=== PATIENT | male | born 1955 | race African-American/Black ===

== ENCOUNTER 2021-11-18 00:52 | Inpatient (IN) | payer OTHER, MEDICAID ==
[2021-11-18] VITALS (20 sets, daily range): BP systolic 150–230; BP diastolic 68–118
[~2021-11-18] VITALS: Ht 180.3 cm; Wt 89.0 kg
[2021-11-18 01:13] LABS: BASO # 0.1 x10^3/uL (0.0-0.2); BASO % 1 % (0-3); EOS # 0.1 x10^3/uL (0.0-0.7); EOS % 1 % (0-3); HEMATOCRIT 32.6 % (39.0-53.0); HEMOGLOBIN 10.5 g/dL (13.0-17.5); LYMPH # 1.8 x10^3/uL (1.0-4.8); LYMPH % 13 % (24-48); MEAN CORPUSCULAR HEMOGLOBIN 26 pg (25-35); MEAN CORPUSCULAR HGB CONC 32 g/dL (31-37); MEAN CORPUSCULAR VOLUME 81 fL (79-100); MONO # 0.9 x10^3/uL (0.0-1.1); MONO % 7 % (0-9); NEUT # 10.4 x10^3/uL (1.8-7.7); NEUT % 78 % (31-73); PLATELET COUNT 307 x10^3/uL (140-400); RED CELL DISTRIBUTION WIDTH 19.3 % (11.5-14.5); WHITE BLOOD COUNT 13.2 x10^3/uL (4.0-11.0)
[2021-11-18 01:22] LABS: PROTHROMBIN TIME PATIENT 13.2 SEC (11.7-14.0)
[2021-11-18 01:24] LABS: CALCIUM 8.4 mg/dL (8.5-10.1); CREATININE 6.3 mg/dL (0.7-1.3); GFR 10.8; POTASSIUM 4.5 mmol/L (3.5-5.1)
[2021-11-18 01:30] LABS: ALBUMIN 3.5 g/dL (3.4-5.0); ALBUMIN/GLOBULIN RATIO 0.8 (1.0-1.7); TOTAL BILIRUBIN 0.3 mg/dL (0.2-1.0); TOTAL PROTEIN 8.1 g/dL (6.4-8.2)
[2021-11-18] MEDS ORDERED: NITROGLYCERIN PREMIX 250 ML IV ONE (01:30)
--- NOTE | 2021-11-18 01:30 | RAD ---
AP chest x-ray HISTORY: Shortness of breath. FINDINGS: Right jugular dual-lumen dialysis catheter tip radiographic region SVC. Postoperative ruiz es of coronary bypass. Mild cardiomegaly. No pneumothorax. No pleural effusions. Pulmonary vascular c ongestion. Extensive pulmonary interstitial infiltrates with some left greater than right perihilar b atwing type opacities typical pulmonary edema. IMPRESSION: Cardiomegaly, pulmonary vascular congestion and pulmonary edema likely representing conge stive heart failure, versus volume overload. Right jugular dialysis catheter. No pneumothorax. Electronically signed by: Juni Baeza MD (11/18/2021 1:28 AM) [facility]
[2021-11-18 02:02] LABS: BASE EXCESS ABG -1 mmol/L (-3-3); HCO3 ABG 23 mmol/L (21-28); PCO2 ABG 39 mmHg (35-46); PO2 ABG 184 mmHg (65-108); SAT O2 ABG 100 % (92-99)
[2021-11-18 02:17] LABS: FIO2 ABG 60
[2021-11-18] MEDS ORDERED: FUROSEMIDE 40 MG/4 ML VIAL. IVP ONE (02:30)
--- NOTE | 2021-11-18 03:08 | PHYS DOC ---
Past Medical History Additional Past Medical Histor: DRUG ABUSE Past Surgical History: Other Additional Past Surgical Histo: RIGHT DIALYSIS PORT CHEST Smoking Status: Current Every Day Smoker Alcohol Use: None Adult General Chief Complaint Chief Complaint: SHORTNESS OF BREATH HPI HPI The patient is a 66-year-old male with with a history of hypertension, hyperlipidemia, coronary artery disease status post CABG and end-stage renal disease on hemodialysis MWF and compliant (last dialysis yesterday). His additional history is unclear as he has not been inpatient at this facility in the past. Mr. Eng presents for evaluation of sudden onset dyspnea at rest shortly after smoking cocaine prior to arrival. EMS were dispatched to his location and found him laboring to breathe with an oxygen saturation in the low 80s. They placed him on several liters by nasal cannula and transported him, placing Nitropaste as well. Patient's blood pressure on arrival to the emergency department is 270/150. Crackles are heard on auscultation and chest x-ray shows pulmonary edema. Patient denies any chest pain; reports his only symptom is sudden onset shortness of breath. Impression is acute pulmonary edema/hypertensive emergency. Patient immediately placed on BiPAP and high-dose nitroglycerin drip started. With these interventions, blood pressure has come down and patient's dyspnea has resolved. Dose Lasix given. Review of Systems Review of Systems A 12 point review of systems was completed and was negative except where noted in HPI above. Current Medications Current Medications Current Medications Medications (Trade) Dose Ordered Sig/Yossi Start Time Stop Time Status Last Admin Dose Admin Furosemide (Lasix) 40 mg 1X ONCE 11/18/21 02:30 11/18/21 02:31 DC Nitroglycerin/ Dextrose 250 ml @ 1.5 mls/hr 1X ONCE 11/18/21 01:30 11/25/21 00:09 11/18/21 01:20 30 MLS/HR Allergies Allergies Allergies Coded Allergies Type Severity Reaction Last Updated Verified No Known Drug Allergies 11/18/21 No Physical Exam Physical Exam Older black male appearing acutely ill and working to breathe. Head is normocephalic and atraumatic. Neck is supple and nontender. Oropharynx is mois t. Lungs with diminished breath sounds and coarse crackles to all paul. No wheezes or other adventitious sounds heard. Accessory muscle use is noted. There is a normal S1 and S2 without rubs or gallops and capillary refill is appropriate, less than 2 seconds globally. There is a tachycardic, regular rhythm. Abdomen soft, nontender and nondistended without pulsatile mass. Skin is warm and dry without cyanosis, clubbing or edema. Psychiatrically, the patient demonstrates appropriate mood and affect and is alert. Evaluation of the extremities reveals BUEs and BLEs neurovascularly intact distally with strength 5-5, sensation intact light touch in all nerve distributions, radial, DP and PT pulses 2+ and equal bilaterally, capillary refill less than 2 seconds, hands and feet warm and well-perfused. 2+ dependent pitting peripheral edema to the bilateral lower extremities below the level of the mid shins, symmetric. No calf tenderness or swelling bilaterally. Kira's test is negative bilaterally. Current Patient Data Vital Signs Vital Signs Date Time Temp Pulse Resp B/P (MAP) Pulse Ox O2 Delivery O2 Flow Rate FiO2 11/18/21 02:35 88 20 178/99 (125) 100 BiPAP/CPAP 11/18/21 00:55 98.6 15.0 98.6 Lab Values Laboratory Tests Test 11/18/21 01:00 11/18/21 01:58 White Blood Count 13.2 x10^3/uL (4.0-11.0) H Red Blood Count 4.00 x10^6/uL (4.30-5.70) L Hemoglobin 10.5 g/dL (13.0-17.5) L Hematocrit 32.6 % (39.0-53.0) L Mean Corpuscular Volume 81 fL (79-100) Mean Corpuscular Hemoglobin 26 pg (25-35) Mean Corpuscular Hemoglobin Concent 32 g/dL (31-37) Red Cell Distribution Width 19.3 % (11.5-14.5) H Platelet Count 307 x10^3/uL (140-400) Neutrophils (%) (Auto) 78 % (31-73) H Lymphocytes (%) (Auto) 13 % (24-48) L Monocytes (%) (Auto) 7 % (0-9) Eosinophils (%) (Auto) 1 % (0-3) Basophils (%) (Auto) 1 % (0-3) Neutrophils # (Auto) 10.4 x10^3/uL (1.8-7.7) H Lymphocytes # (Auto) 1.8 x10^3/uL (1.0-4.8) Monocytes # (Auto) 0.9 x10^3/uL (0.0-1.1) Eosinophils # (Auto) 0.1 x10^3/uL (0.0-0.7) Basophils # (Auto) 0.1 x10^3/uL (0.0-0.2) Prothrombin Time 13.2 SEC (11.7-14.0) Prothrombin Time INR 1.0 (0.8-1.1) Activated Partial Thromboplast Time 28 SEC (24-38) Sodium Level 137 mmol/L (136-145) Potassium Level 4.5 mmol/L (3.5-5.1) Chloride Level 97 mmol/L (98-107) L Carbon Dioxide Level 26 mmol/L (21-32) Anion Gap 14 (6-14) Blood Urea Nitrogen 31 mg/dL (8-26) H Creatinine 6.3 mg/dL (0.7-1.3) H Estimated GFR (Cockcroft-Gault) 10.8 BUN/Creatinine Ratio 5 (6-20) L Glucose Level 151 mg/dL (70-99) H Lactic Acid Level 1.4 mmol/L (0.4-2.0) Calcium Level 8.4 mg/dL (8.5-10.1) L Total Bilirubin 0.3 mg/dL (0.2-1.0) Aspartate Amino Transferase (AST) 34 U/L (15-37) Alanine Aminotransferase (ALT) 33 U/L (16-63) Alkaline Phosphatase 86 U/L (46-116) Troponin I High Sensitivity 107 ng/L (4-75) H KT-Tps-J-Type Natriuretic Peptide 01515 pg/mL (0-124) H Total Protein 8.1 g/dL (6.4-8.2) Albumin 3.5 g/dL (3.4-5.0) Albumin/Globulin Ratio 0.8 (1.0-1.7) L Ethyl Alcohol Level < 10 mg/dL (0-10) O2 Saturation 100 % (92-99) H Arterial Blood pH 7.40 (7.35-7.45) Arterial Blood pCO2 at Patient Temp 39 mmHg (35-46) Arterial Blood pO2 at Patient Temp 184 mmHg (65-108) H Arterial Blood HCO3 23 mmol/L (21-28) Arterial Blood Base Excess -1 mmol/L (-3-3) FiO2 60 Laboratory Tests 11/18/21 01:00 Laboratory Tests 11/18/21 01:00 EKG EKG Sinus rhythm, rate 121, no acute ST elevation, ST depressions noted in high lateral, inferior and lateral leads, DC 134, QRS 102, QTc 457, EP interpretation. Repeat EKG after stabilizing measures as documented in HPI above with heart rate 96, improved ST depressions and no ST elevation noted. Radiology/Procedures Radiology/Procedures AP chest x-ray HISTORY: Shortness of breath. FINDINGS: Right jugular dual-lumen dialysis catheter tip radiographic region SVC. Postoperative changes of coronary bypass. Mild cardiomegaly. No pneumothorax. No pleural effusions. Pulmonary vascular congestion. Extensive pulmonary interstitial infiltrates with some left greater than right perihilar batwing type opacities typical pulmonary edema. IMPRESSION: Cardiomegaly, pulmonary vascular congestion and pulmonary edema likely representing congestive heart failure, versus volume overload. Right jugular dialysis catheter. No pneumothorax. Electronically signed by: Nisa Baeza MD (11/18/2021 1:28 AM) [facility] DICTATED and SIGNED BY: NISA BAEZA MD DATE: 11/18/21125 Course & Med Decision Making Course & Med Decision Making Patient stabilized as per narrative above. Resting comfortably in no acute distress on BiPAP, reports breathing is much, much better than upon arrival. No longer working to breathe; respiratory effort is normal. Blood pressure dramatically better on nitroglycerin drip. Transferring to the ICU at this time; cardiology and nephrology consults placed. Graciously accepted for admission by Dr. Umanzor. Critical care time today was 95 minutes independent of any separately billed procedure time. Dragon Disclaimer Dragon Disclaimer This electronic medical record was generated, in whole or in part, using a voice recognition dictation system. Departure Departure Impression: Primary Impression: Flash pulmonary edema Additional Impressions: Hypertensive emergency Acute exacerbation of congestive heart failure Cocaine abuse Acute hypoxemic respiratory failure Disposition: ADMITTED INPATIENT Condition: GUARDED Referrals: SAGAR UMANZOR MD (PCP) Problem Qualifiers Additional Impressions: Acute exacerbation of congestive heart failure Heart failure type: unspecified Qualified Codes: I50.9 - Heart failure, unspecified ABBEY BEATTY MD Nov 18, 2021 03:08
[2021-11-18] MEDS ORDERED: ONDANSETRON PF 4 MG/2 ML VIAL. IVP PRN (03:15)
[2021-11-18] MEDS ORDERED: ACETAMINOPHEN 500 MG TABLET PO ONE (03:30)
[2021-11-18] MEDS ORDERED: CONTRAST GIVEN. MC PRN (03:45)
[2021-11-18] MEDS ORDERED: IOHEXOL 350 MG/ML 100 ML VIAL. IV ONE (04:00)
--- NOTE | 2021-11-18 04:27 | RAD ---
CT angiography chest, abdomen and pelvis with contrast PQRS statement: CT scans at this facility use dose reduction including either automated exposure cont rol, iterative reconstructions, and /or weight based radiation dosing via mA and kV modification when appropriate to reduce radiation dose to as low as reasonably achievable. Contrast: 90 mL Omnipaque 350 intravenous contrast with 3-D MIP reconstructions of the arteries acqui red. HISTORY: Chest wall pain. Chest findings: Thoracic disc disease with loss of disc protrusions contribute to spinal canal stenos es. Coronary calcified plaque. Postoperative changes of coronary artery bypass. Calcifications of the aortic valve. Ectasia ascending thoracic aorta 3.9 cm. Right jugular large-bore catheter tip SVC. Li mited contrast densities in the pulmonary arteries not allowing assessment for emboli. No thoracic ao rtic aneurysm or dissection. Heart size is normal. Esophagus is unremarkable. Borderline enlarged med iastinal lymph nodes largest at the lower paratracheal station measuring 1 cm. Small bilateral depend ent pleural effusions. Mild chest wall soft tissue edema. Bilateral gynecomastia. Smooth paraseptal i nterstitial thickening and heterogeneous groundglass opacities as well as centrilobular groundglass d ensities and nodular densities most likely pulmonary edema superimposed pneumonia not excluded. Abdomen findings: Lower lumbar disc disease. Replaced hepatic artery from the celiac artery and anato vickie variant. Plaquing of the mesenteric arteries and abdominal aorta without significant stenosis. Th ere is a shallow ulceration of the anterior wall of the infrarenal aorta image 123. No aneurysm or di ssection causing a stenosis, thrombus or occlusion of the aorta or abdominal arteries. Maximum diamet er of the aorta is 2 cm. Right kidney is absent. Left kidney, adrenals, pancreas, spleen, liver and g allbladder are unremarkable. Small volume of free fluid in Shankar's pouch. No obstruction or inflam mation GI tract. Diffuse flank soft tissue edema. Pelvis findings: Tortuosity and calcified iliac arteries, no aneurysm, dissection, significant stenos is or occlusion. Small volume of pelvic fluid. Bladder and prostate, rectum and bones are unremarkabl e. IMPRESSION: 1. Plaquing without aneurysm or dissection of the thoracic aorta, abdominal aorta, abdominal arteries or iliac arteries. 2. Pulmonary edema and small pleural effusions. There are scattered centrilobular groundglass nodules and nodular opacities most likely reflective of pulmonary edema although a superimposed disseminated infection is also a possibility. Follow-up CT chest imaging in 3 months is advised to document that this resolves to exclude an underlying neoplastic nodule. 3. There is also a small volume of pelvic fluid and diffuse abdominal and pelvic soft tissue edema wh ich may indicate anasarca. 4. Thoracic and lumbar disc disease as described above. 5. Ectasia ascending thoracic aorta diameter 3.9 cm. Electronically signed by: Juni Baeza MD (11/18/2021 4:24 AM) [facility]
--- NOTE | 2021-11-18 06:12 | EKG ---
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
--- NOTE | 2021-11-18 06:12 | EKG ---
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
[2021-11-18] MEDS ORDERED: NITROGLYCERIN PREMIX 250 ML IV PRN (06:15)
[2021-11-18] MEDS: fentaNYL PF VIAL 100 MCG/2 ML VIAL IV PRN ×6 (07:40→21:23)
[2021-11-18 07:55] LABS: AMPHETAMINE/METHAMPHETAMINE NEG (NEG); BARBITURATES NEG (NEG); BENZODIAZEPINES NEG (NEG); CANNABINOIDS NEG (NEG); COCAINE POS (NEG); METHADONE NEG (NEG); OPIATES NEG (NEG); PHENCYCLIDINE NEG (NEG)
--- NOTE | 2021-11-18 08:48 | PDOC ---
PULMONARY PROGRESS NOTES DATE: 11/18/21 TIME: 08:47 Vitals Vital Signs Date Time Temp Pulse Resp B/P (MAP) Pulse Ox O2 Delivery O2 Flow Rate FiO2 11/18/21 08:00 98.0 80 50 187/101 (129) 99 Nasal Cannula 4.0 98.0 Labs Laboratory Tests Test 11/18/21 01:00 11/18/21 01:58 11/18/21 07:30 White Blood Count 13.2 x10^3/uL (4.0-11.0) Red Blood Count 4.00 x10^6/uL (4.30-5.70) Hemoglobin 10.5 g/dL (13.0-17.5) Hematocrit 32.6 % (39.0-53.0) Mean Corpuscular Volume 81 fL (79-100) Mean Corpuscular Hemoglobin 26 pg (25-35) Mean Corpuscular Hemoglobin Concent 32 g/dL (31-37) Red Cell Distribution Width 19.3 % (11.5-14.5) Platelet Count 307 x10^3/uL (140-400) Neutrophils (%) (Auto) 78 % (31-73) Lymphocytes (%) (Auto) 13 % (24-48) Monocytes (%) (Auto) 7 % (0-9) Eosinophils (%) (Auto) 1 % (0-3) Basophils (%) (Auto) 1 % (0-3) Neutrophils # (Auto) 10.4 x10^3/uL (1.8-7.7) Lymphocytes # (Auto) 1.8 x10^3/uL (1.0-4.8) Monocytes # (Auto) 0.9 x10^3/uL (0.0-1.1) Eosinophils # (Auto) 0.1 x10^3/uL (0.0-0.7) Basophils # (Auto) 0.1 x10^3/uL (0.0-0.2) Prothrombin Time 13.2 SEC (11.7-14.0) Prothromb Time International Ratio 1.0 (0.8-1.1) Activated Partial Thromboplast Time 28 SEC (24-38) Sodium Level 137 mmol/L (136-145) Potassium Level 4.5 mmol/L (3.5-5.1) Chloride Level 97 mmol/L (98-107) Carbon Dioxide Level 26 mmol/L (21-32) Anion Gap 14 (6-14) Blood Urea Nitrogen 31 mg/dL (8-26) Creatinine 6.3 mg/dL (0.7-1.3) Estimated GFR (Cockcroft-Gault) 10.8 BUN/Creatinine Ratio 5 (6-20) Glucose Level 151 mg/dL (70-99) Lactic Acid Level 1.4 mmol/L (0.4-2.0) Calcium Level 8.4 mg/dL (8.5-10.1) Total Bilirubin 0.3 mg/dL (0.2-1.0) Aspartate Amino Transf (AST/SGOT) 34 U/L (15-37) Alanine Aminotransferase (ALT/SGPT) 33 U/L (16-63) Alkaline Phosphatase 86 U/L (46-116) Troponin I High Sensitivity 107 ng/L (4-75) UZ-Pwn-Q-Type Natriuretic Peptide 76253 pg/mL (0-124) Total Protein 8.1 g/dL (6.4-8.2) Albumin 3.5 g/dL (3.4-5.0) Albumin/Globulin Ratio 0.8 (1.0-1.7) Ethyl Alcohol Level < 10 mg/dL (0-10) O2 Saturation 100 % (92-99) Arterial Blood pH 7.40 (7.35-7.45) Arterial Blood pCO2 at Patient Temp 39 mmHg (35-46) Arterial Blood pO2 at Patient Temp 184 mmHg (65-108) Arterial Blood HCO3 23 mmol/L (21-28) Arterial Blood Base Excess -1 mmol/L (-3-3) FiO2 60 Urine Opiates Screen Neg (NEG) Urine Methadone Screen Neg (NEG) Urine Barbiturates Neg (NEG) Urine Phencyclidine Screen Neg (NEG) Urine Amphetamine/Methamphetamine Neg (NEG) Urine Benzodiazepines Screen Neg (NEG) Urine Cocaine Screen Pos (NEG) Urine Cannabinoids Screen Neg (NEG) Urine Ethyl Alcohol Neg (NEG) Laboratory Tests Test 11/18/21 01:00 11/18/21 01:58 11/18/21 07:30 White Blood Count 13.2 x10^3/uL (4.0-11.0) Red Blood Count 4.00 x10^6/uL (4.30-5.70) Hemoglobin 10.5 g/dL (13.0-17.5) Hematocrit 32.6 % (39.0-53.0) Mean Corpuscular Volume 81 fL (79-100) Mean Corpuscular Hemoglobin 26 pg (25-35) Mean Corpuscular Hemoglobin Concent 32 g/dL (31-37) Red Cell Distribution Width 19.3 % (11.5-14.5) Platelet Count 307 x10^3/uL (140-400) Neutrophils (%) (Auto) 78 % (31-73) Lymphocytes (%) (Auto) 13 % (24-48) Monocytes (%) (Auto) 7 % (0-9) Eosinophils (%) (Auto) 1 % (0-3) Basophils (%) (Auto) 1 % (0-3) Neutrophils # (Auto) 10.4 x10^3/uL (1.8-7.7) Lymphocytes # (Auto) 1.8 x10^3/uL (1.0-4.8) Monocytes # (Auto) 0.9 x10^3/uL (0.0-1.1) Eosinophils # (Auto) 0.1 x10^3/uL (0.0-0.7) Basophils # (Auto) 0.1 x10^3/uL (0.0-0.2) Prothrombin Time 13.2 SEC (11.7-14.0) Prothromb Time International Ratio 1.0 (0.8-1.1) Activated Partial Thromboplast Time 28 SEC (24-38) Sodium Level 137 mmol/L (136-145) Potassium Level 4.5 mmol/L (3.5-5.1) Chloride Level 97 mmol/L (98-107) Carbon Dioxide Level 26 mmol/L (21-32) Anion Gap 14 (6-14) Blood Urea Nitrogen 31 mg/dL (8-26) Creatinine 6.3 mg/dL (0.7-1.3) Estimated GFR (Cockcroft-Gault) 10.8 BUN/Creatinine Ratio 5 (6-20) Glucose Level 151 mg/dL (70-99) Lactic Acid Level 1.4 mmol/L (0.4-2.0) Calcium Level 8.4 mg/dL (8.5-10.1) Total Bilirubin 0.3 mg/dL (0.2-1.0) Aspartate Amino Transf (AST/SGOT) 34 U/L (15-37) Alanine Aminotransferase (ALT/SGPT) 33 U/L (16-63) Alkaline Phosphatase 86 U/L (46-116) Troponin I High Sensitivity 107 ng/L (4-75) OX-Lko-S-Type Natriuretic Peptide 06039 pg/mL (0-124) Total Protein 8.1 g/dL (6.4-8.2) Albumin 3.5 g/dL (3.4-5.0) Albumin/Globulin Ratio 0.8 (1.0-1.7) Ethyl Alcohol Level < 10 mg/dL (0-10) O2 Saturation 100 % (92-99) Arterial Blood pH 7.40 (7.35-7.45) Arterial Blood pCO2 at Patient Temp 39 mmHg (35-46) Arterial Blood pO2 at Patient Temp 184 mmHg (65-108) Arterial Blood HCO3 23 mmol/L (21-28) Arterial Blood Base Excess -1 mmol/L (-3-3) FiO2 60 Urine Opiates Screen Neg (NEG) Urine Methadone Screen Neg (NEG) Urine Barbiturates Neg (NEG) Urine Phencyclidine Screen Neg (NEG) Urine Amphetamine/Methamphetamine Neg (NEG) Urine Benzodiazepines Screen Neg (NEG) Urine Cocaine Screen Pos (NEG) Urine Cannabinoids Screen Neg (NEG) Urine Ethyl Alcohol Neg (NEG) Impression . Full consult dictated Acute hypoxemic respiratory failure secondary to acute pulmonary edema from uncontrolled hypertension related to crack cocaine use DEAN CASTRO MD Nov 18, 2021 08:48
--- NOTE | 2021-11-18 09:08 | PDOC2 ---
CONSULT Date of Consult Date of Consult DATE: 11/18/21 TIME: 09:03 Reason for Consult Reason for Consult: ESRD Identification/Chief Complaint Chief Complaint Shortness of Breath POA Source Source: Chart review History of Present Illness Reason for Visit: Patient is a 66-year-old AA male with with a history of hypertension,coronary artery disease status post CABG and end-stage renal disease on hemodialysis MWF . He presents to the ED for evaluation of sudden onset dyspnea at rest shortly after smoking cocaine prior to arrival. EMS found him laboring to breathe with an oxygen saturation in the low 80s. They placed him on several liters by nasal cannula , ,Nitropaste and transported him as well. His blood pressure on arrival to the emergency department is 270/150. Evaluated by ER physician- Crackles on auscultation.. He denies any chest pain;No N/V/D. No abdominal pain . No F/C . . No palpitations, dizziness.Denies missing any treatment . Reports compliance with meds Recent right nephrectomy about 2 weeks ago Chest x-ray reported pulmonary edema . He was placed on BiPAP and high-dose nitroglycerin drip and a dose of IV Lasix in the ER With these interventions, blood pressure came down and dyspnea improved . He is in the ICU, states feeling better . Current Problem List Problem List Problems Medical Problems: (1) Acute exacerbation of congestive heart failure Status: Acute (2) Acute hypoxemic respiratory failure Status: Acute (3) Cocaine abuse Status: Acute (4) Flash pulmonary edema Status: Acute (5) Hypertensive emergency Status: Acute Current Medications Current Medications Current Medications Nitroglycerin/ Dextrose 250 ml @ 1.5 mls/hr 1X ONCE IV Last administered on 11/18/21at 01:20; Start 11/18/21 at 01:30; Stop 11/25/21 at 00:09 Furosemide (Lasix) 40 mg 1X ONCE IVP Last administered on 11/18/21at 03:26; Start 11/18/21 at 02:30; Stop 11/18/21 at 02:31; Status DC Ondansetron HCl (Zofran) 4 mg PRN Q8HRS PRN IVP NAUSEA/VOMITING 1ST CHOICE; Start 11/18/21 at 03:15; Stop 11/19/21 at 03:14 Acetaminophen (Tylenol) 1,000 mg 1X ONCE PO ; Start 11/18/21 at 03:30; Stop 11/18/21 at 03:31; Status DC Iohexol (Omnipaque 350 Mg/ml) 100 ml 1X ONCE IV Last administered on 11/18/21at 03:54; Start 11/18/21 at 04:00; Stop 11/18/21 at 04:01; Status DC Info (CONTRAST GIVEN -- Rx MONITORING) 1 each PRN DAILY PRN MC SEE COMMENTS; Start 11/18/21 at 03:45; Stop 11/20/21 at 03:44 Nitroglycerin/ Dextrose 250 ml @ 1.5 mls/hr CONT PRN IV SEE I/O RECORD Last administered on 11/18/21at 06:14; Start 11/18/21 at 06:15 Fentanyl Citrate (Fentanyl 2ml Vial) 50 mcg PRN Q2HRS PRN IV PAIN Last administered on 11/18/21at 07:40; Start 11/18/21 at 07:00 Allergies Allergies: Coded Allergies: No Known Drug Allergies (Unverified , 11/18/21) ROS Review of System As per HPI, rest of the ROS is negative Physical Exam Physical Exam General: No acute distress, sitting in bed, On o2 by [place] HEENT: Atraumatic, Mucous membr. moist/pink Neck Supple Lungs diminished bases, Non labored Heart: Regular rate Normal S1, Normal S2, 2/6 systolic murmur Abdomen: Soft, No tenderness. Obese Extremities: No cyanosis, No edema Skin: No breakdown, No Rash Neuro: Grossly Normal Psych/Mental Status: Cooperative No Petit, o CVA or SP tenderness Vital Signs Vital Signs Date Time Temp Pulse Resp B/P (MAP) Pulse Ox O2 Delivery O2 Flow Rate FiO2 11/18/21 08:00 98.0 80 50 187/101 (129) 99 Nasal Cannula 4.0 98.0 Assessment & Plan ESRD MWF at [facility] , No missed treatments . Dialysis today , discussed treatment plan with [facility] Acute on chronic CHF with possible diastolic dysfunction: possibly induced by uncontrolled HTN with associated cocaine Acute Resp Failure 2/2 AC on Chr CHF ; Cxr and CT cw Pulmonary edema and small pleural effusions. Off Bipap , On O2 by nc Abnormal CT Chest- . Pulmonary edema and small pleural effusions. There are scattered centrilobular groundglass nodules and nodular opacities most likely reflective of pulmonary edema although a superimposed disseminated infection is also a possibility. Follow-up CT chest imaging in 3 months is advised to document that this resolves to exclude an underlying neoplastic nodule. Malignant HTN-Was started on NG gtt ; Cardiology managing . NSTEMI: Suspect demand mediated type 2 S/P Right nephrectomy: about 2 weeks ago due to Dx of Malignancy on Biopsy of the Rt Kidney mass DM2 Cocaine use: used it last night Tobacco abuse Labs Labs Laboratory Tests Test 11/18/21 01:00 11/18/21 01:58 11/18/21 07:30 White Blood Count 13.2 x10^3/uL (4.0-11.0) Red Blood Count 4.00 x10^6/uL (4.30-5.70) Hemoglobin 10.5 g/dL (13.0-17.5) Hematocrit 32.6 % (39.0-53.0) Mean Corpuscular Volume 81 fL (79-100) Mean Corpuscular Hemoglobin 26 pg (25-35) Mean Corpuscular Hemoglobin Concent 32 g/dL (31-37) Red Cell Distribution Width 19.3 % (11.5-14.5) Platelet Count 307 x10^3/uL (140-400) Neutrophils (%) (Auto) 78 % (31-73) Lymphocytes (%) (Auto) 13 % (24-48) Monocytes (%) (Auto) 7 % (0-9) Eosinophils (%) (Auto) 1 % (0-3) Basophils (%) (Auto) 1 % (0-3) Neutrophils # (Auto) 10.4 x10^3/uL (1.8-7.7) Lymphocytes # (Auto) 1.8 x10^3/uL (1.0-4.8) Monocytes # (Auto) 0.9 x10^3/uL (0.0-1.1) Eosinophils # (Auto) 0.1 x10^3/uL (0.0-0.7) Basophils # (Auto) 0.1 x10^3/uL (0.0-0.2) Prothrombin Time 13.2 SEC (11.7-14.0) Prothromb Time International Ratio 1.0 (0.8-1.1) Activated Partial Thromboplast Time 28 SEC (24-38) Sodium Level 137 mmol/L (136-145) Potassium Level 4.5 mmol/L (3.5-5.1) Chloride Level 97 mmol/L (98-107) Carbon Dioxide Level 26 mmol/L (21-32) Anion Gap 14 (6-14) Blood Urea Nitrogen 31 mg/dL (8-26) Creatinine 6.3 mg/dL (0.7-1.3) Estimated GFR (Cockcroft-Gault) 10.8 BUN/Creatinine Ratio 5 (6-20) Glucose Level 151 mg/dL (70-99) Lactic Acid Level 1.4 mmol/L (0.4-2.0) Calcium Level 8.4 mg/dL (8.5-10.1) Total Bilirubin 0.3 mg/dL (0.2-1.0) Aspartate Amino Transf (AST/SGOT) 34 U/L (15-37) Alanine Aminotransferase (ALT/SGPT) 33 U/L (16-63) Alkaline Phosphatase 86 U/L (46-116) Troponin I High Sensitivity 107 ng/L (4-75) UR-Teg-H-Type Natriuretic Peptide 46228 pg/mL (0-124) Total Protein 8.1 g/dL (6.4-8.2) Albumin 3.5 g/dL (3.4-5.0) Albumin/Globulin Ratio 0.8 (1.0-1.7) Ethyl Alcohol Level < 10 mg/dL (0-10) O2 Saturation 100 % (92-99) Arterial Blood pH 7.40 (7.35-7.45) Arterial Blood pCO2 at Patient Temp 39 mmHg (35-46) Arterial Blood pO2 at Patient Temp 184 mmHg (65-108) Arterial Blood HCO3 23 mmol/L (21-28) Arterial Blood Base Excess -1 mmol/L (-3-3) FiO2 60 Urine Opiates Screen Neg (NEG) Urine Methadone Screen Neg (NEG) Urine Barbiturates Neg (NEG) Urine Phencyclidine Screen Neg (NEG) Urine Amphetamine/Methamphetamine Neg (NEG) Urine Benzodiazepines Screen Neg (NEG) Urine Cocaine Screen Pos (NEG) Urine Cannabinoids Screen Neg (NEG) Urine Ethyl Alcohol Neg (NEG) Laboratory Tests Test 11/18/21 01:00 11/18/21 01:58 11/18/21 07:30 White Blood Count 13.2 x10^3/uL (4.0-11.0) Red Blood Count 4.00 x10^6/uL (4.30-5.70) Hemoglobin 10.5 g/dL (13.0-17.5) Hematocrit 32.6 % (39.0-53.0) Mean Corpuscular Volume 81 fL (79-100) Mean Corpuscular Hemoglobin 26 pg (25-35) Mean Corpuscular Hemoglobin Concent 32 g/dL (31-37) Red Cell Distribution Width 19.3 % (11.5-14.5) Platelet Count 307 x10^3/uL (140-400) Neutrophils (%) (Auto) 78 % (31-73) Lymphocytes (%) (Auto) 13 % (24-48) Monocytes (%) (Auto) 7 % (0-9) Eosinophils (%) (Auto) 1 % (0-3) Basophils (%) (Auto) 1 % (0-3) Neutrophils # (Auto) 10.4 x10^3/uL (1.8-7.7) Lymphocytes # (Auto) 1.8 x10^3/uL (1.0-4.8) Monocytes # (Auto) 0.9 x10^3/uL (0.0-1.1) Eosinophils # (Auto) 0.1 x10^3/uL (0.0-0.7) Basophils # (Auto) 0.1 x10^3/uL (0.0-0.2) Prothrombin Time 13.2 SEC (11.7-14.0) Prothromb Time International Ratio 1.0 (0.8-1.1) Activated Partial Thromboplast Time 28 SEC (24-38) Sodium Level 137 mmol/L (136-145) Potassium Level 4.5 mmol/L (3.5-5.1) Chloride Level 97 mmol/L (98-107) Carbon Dioxide Level 26 mmol/L (21-32) Anion Gap 14 (6-14) Blood Urea Nitrogen 31 mg/dL (8-26) Creatinine 6.3 mg/dL (0.7-1.3) Estimated GFR (Cockcroft-Gault) 10.8 BUN/Creatinine Ratio 5 (6-20) Glucose Level 151 mg/dL (70-99) Lactic Acid Level 1.4 mmol/L (0.4-2.0) Calcium Level 8.4 mg/dL (8.5-10.1) Total Bilirubin 0.3 mg/dL (0.2-1.0) Aspartate Amino Transf (AST/SGOT) 34 U/L (15-37) Alanine Aminotransferase (ALT/SGPT) 33 U/L (16-63) Alkaline Phosphatase 86 U/L (46-116) Troponin I High Sensitivity 107 ng/L (4-75) LF-Ely-G-Type Natriuretic Peptide 31973 pg/mL (0-124) Total Protein 8.1 g/dL (6.4-8.2) Albumin 3.5 g/dL (3.4-5.0) Albumin/Globulin Ratio 0.8 (1.0-1.7) Ethyl Alcohol Level < 10 mg/dL (0-10) O2 Saturation 100 % (92-99) Arterial Blood pH 7.40 (7.35-7.45) Arterial Blood pCO2 at Patient Temp 39 mmHg (35-46) Arterial Blood pO2 at Patient Temp 184 mmHg (65-108) Arterial Blood HCO3 23 mmol/L (21-28) Arterial Blood Base Excess -1 mmol/L (-3-3) FiO2 60 Urine Opiates Screen Neg (NEG) Urine Methadone Screen Neg (NEG) Urine Barbiturates Neg (NEG) Urine Phencyclidine Screen Neg (NEG) Urine Amphetamine/Methamphetamine Neg (NEG) Urine Benzodiazepines Screen Neg (NEG) Urine Cocaine Screen Pos (NEG) Urine Cannabinoids Screen Neg (NEG) Urine Ethyl Alcohol Neg (NEG) Review All relevant outside records, renal labs, imaging studies, telemetry/EKG's were reviewed. Images Images AP chest x-ray HISTORY: Shortness of breath. FINDINGS: Right jugular dual-lumen dialysis catheter tip radiographic region SVC. Postoperative changes of coronary bypass. Mild cardiomegaly. No pneumothorax. No pleural effusions. Pulmonary vascular congestion. Extensive pulmonary interstitial infiltrates with some left greater than right perihilar batwing type opacities typical pulmonary edema. IMPRESSION: Cardiomegaly, pulmonary vascular congestion and pulmonary edema likely representing congestive heart failure, versus volume overload. Right jugular dialysis catheter. No pneumothorax. CT angiography chest, abdomen and pelvis with contrast PQRS statement: CT scans at this facility use dose reduction including either automated exposure control, iterative reconstructions, and /or weight based radiation dosing via mA and kV modification when appropriate to reduce radiation dose to as low as reasonably achievable. Contrast: 90 mL Omnipaque 350 intravenous contrast with 3-D MIP reconstructions of the arteries acquired. HISTORY: Chest wall pain. Chest findings: Thoracic disc disease with loss of disc protrusions contribute to spinal canal stenoses. Coronary calcified plaque. Postoperative changes of coronary artery bypass. Calcifications of the aortic valve. Ectasia ascending thoracic aorta 3.9 cm. Right jugular large-bore catheter tip SVC. Limited contrast densities in the pulmonary arteries not allowing assessment for emboli. No thoracic aortic aneurysm or dissection. Heart size is normal. Esophagus is unremarkable. Borderline enlarged mediastinal lymph nodes largest at the lower paratracheal station measuring 1 cm. Small bilateral dependent pleural effu sions. Mild chest wall soft tissue edema. Bilateral gynecomastia. Smooth paraseptal interstitial thickening and heterogeneous groundglass opacities as well as centrilobular groundglass densities and nodular densities most likely pulmonary edema superimposed pneumonia not excluded. Abdomen findings: Lower lumbar disc disease. Replaced hepatic artery from the celiac artery and anatomic variant. Plaquing of the mesenteric arteries and abdominal aorta without significant stenosis. There is a shallow ulceration of the anterior wall of the infrarenal aorta image 123. No aneurysm or dissection causing a stenosis, thrombus or occlusion of the aorta or abdominal arteries. Maximum diameter of the aorta is 2 cm. Right kidney is absent. Left kidney, adrenals, pancreas, spleen, liver and gallbladder are unremarkable. Small volume of free fluid in Shankar's pouch. No obstruction or inflammation GI tract. Diffuse flank soft tissue edema. Pelvis findings: Tortuosity and calcified iliac arteries, no aneurysm, dissection, significant stenosis or occlusion. Small volume of pelvic fluid. Bladder and prostate, rectum and bones are unremarkable. IMPRESSION: 1. Plaquing without aneurysm or dissection of the thoracic aorta, abdominal aorta, abdominal arteries or iliac arteries. 2 3. There is also a small volume of pelvic fluid and diffuse abdominal and pelvic soft tissue edema which may indicate anasarca. 4. Thoracic and lumbar disc disease as described above. 5. Ectasia ascending thoracic aorta diameter 3.9 cm. NIRAJ SEGOVIA MD Nov 18, 2021 09:08
--- NOTE | 2021-11-18 09:17 | NUR ---
Faxed medical records request for patients CABG info from [facility] in [place], [place]. [phone], fax [phone]
--- NOTE | 2021-11-18 09:25 | PDOC2 ---
NIKKIE JEREZ MACHINE TOOL MECHANIC 11/18/21 0925: CARDIAC CONSULT DATE OF CONSULT Date of Consult DATE: 11/18/21 TIME: 09:03 REASON FOR CONSULT Reason for Consult: pulmonary edema REFERRING PHYSICIAN Referring Physician: Migel SOURCE Source: Chart review, Patient HISTORY OF PRESENT ILLNESS HISTORY OF PRESENT ILLNESS This is a pleasant 66 yo male admitted for complains of shortness of breath. Reports that he has been getting increasingly SOA in the last 3-4 days. Denies any chest pain but had sharp pain to his left rib cage area. No palpitations, dizziness. No fever or chills. His SBP has been at the 160s when he checks it at home and he has not missed his dialysis with last one done Wed and also has not missed any of his medications. He just had had right nephrectomy about 2 weeks ago which he tolerated. He had CABG about 17 yrs ago in [place] and has not been seeing any healthcare insurance sales agent. PAST MEDICAL HISTORY Cardiovascular: CAD, CHF, HTN, Hyperlipidemia GI: GERD Heme/Onc: Cancer (renal) Renal/: Chronic renal failure Endocrine: Diabetes PAST SURGICAL HISTORY Past Surgical History: CABG, Other (right renal nephrectomy) FAMILY HISTORY Family History: Diabetes SOCIAL HISTORY Smoke: <1 pack per day ALCOHOL: occassional Drugs: None Lives: Alone CURRENT MEDICATIONS CURRENT MEDICATIONS Current Medications Medications (Trade) Dose Ordered Sig/Yossi Route PRN Reason Start Time Stop Time Status Last Admin Dose Admin Nitroglycerin/ Dextrose 250 ml @ 1.5 mls/hr 1X ONCE IV 11/18/21 01:30 11/25/21 00:09 11/18/21 01:20 Furosemide (Lasix) 40 mg 1X ONCE IVP 11/18/21 02:30 11/18/21 02:31 DC 11/18/21 03:26 Iohexol (Omnipaque 350 Mg/ml) 100 ml 1X ONCE IV 11/18/21 04:00 11/18/21 04:01 DC 11/18/21 03:54 Nitroglycerin/ Dextrose 250 ml @ 1.5 mls/hr CONT PRN IV SEE I/O RECORD 11/18/21 06:15 11/18/21 06:14 Fentanyl Citrate (Fentanyl 2ml Vial) 50 mcg PRN Q2HRS PRN IV PAIN 11/18/21 07:00 11/18/21 07:40 ALLERGIES ALLERGIES: Coded Allergies: No Known Drug Allergies (Unverified , 11/18/21) ROS Review of System 14 point ROS evaluated with pertinent positives noted per HPI PHYSICAL EXAM General: Alert, Oriented X3, Cooperative, No acute distress HEENT: Atraumatic, Mucous membr. moist/pink Lungs: Other (diminished bases) Heart: Regular rate (SR), Normal S1, Normal S2, Other (2/6 systolic murmur to LLS border) Abdomen: Soft, No tenderness Extremities: No cyanosis, No edema Skin: No breakdown, No significant lesion Neuro: Normal speech, Sensation intact Psych/Mental Status: Mental status NL, Mood NL MUSCULOSKELETAL: Osteoarthritic changes both hands VITALS/I&O VITALS/I&O: Vital Signs Date Time Temp Pulse Resp B/P (MAP) Pulse Ox O2 Delivery O2 Flow Rate FiO2 11/18/21 08:00 98.0 80 50 187/101 (129) 99 Nasal Cannula 4.0 98.0 I & O 11/17/21 11/17/21 11/18/21 15:00 23:00 07:00 Intake Total 0 ml Output Total 30 ml Balance -30 ml LABS Lab: Laboratory Tests Test 11/18/21 01:00 11/18/21 01:58 11/18/21 07:30 White Blood Count 13.2 x10^3/uL (4.0-11.0) H Red Blood Count 4.00 x10^6/uL (4.30-5.70) L Hemoglobin 10.5 g/dL (13.0-17.5) L Hematocrit 32.6 % (39.0-53.0) L Mean Corpuscular Volume 81 fL (79-100) Mean Corpuscular Hemoglobin 26 pg (25-35) Mean Corpuscular Hemoglobin Concent 32 g/dL (31-37) Red Cell Distribution Width 19.3 % (11.5-14.5) H Platelet Count 307 x10^3/uL (140-400) Neutrophils (%) (Auto) 78 % (31-73) H Lymphocytes (%) (Auto) 13 % (24-48) L Monocytes (%) (Auto) 7 % (0-9) Eosinophils (%) (Auto) 1 % (0-3) Basophils (%) (Auto) 1 % (0-3) Neutrophils # (Auto) 10.4 x10^3/uL (1.8-7.7) H Lymphocytes # (Auto) 1.8 x10^3/uL (1.0-4.8) Monocytes # (Auto) 0.9 x10^3/uL (0.0-1.1) Eosinophils # (Auto) 0.1 x10^3/uL (0.0-0.7) Basophils # (Auto) 0.1 x10^3/uL (0.0-0.2) Prothrombin Time 13.2 SEC (11.7-14.0) Prothrombin Time INR 1.0 (0.8-1.1) Activated Partial Thromboplast Time 28 SEC (24-38) Sodium Level 137 mmol/L (136-145) Potassium Level 4.5 mmol/L (3.5-5.1) Chloride Level 97 mmol/L (98-107) L Carbon Dioxide Level 26 mmol/L (21-32) Anion Gap 14 (6-14) Blood Urea Nitrogen 31 mg/dL (8-26) H Creatinine 6.3 mg/dL (0.7-1.3) H Estimated GFR (Cockcroft-Gault) 10.8 BUN/Creatinine Ratio 5 (6-20) L Glucose Level 151 mg/dL (70-99) H Lactic Acid Level 1.4 mmol/L (0.4-2.0) Calcium Level 8.4 mg/dL (8.5-10.1) L Total Bilirubin 0.3 mg/dL (0.2-1.0) Aspartate Amino Transferase (AST) 34 U/L (15-37) Alanine Aminotransferase (ALT) 33 U/L (16-63) Alkaline Phosphatase 86 U/L (46-116) Troponin I High Sensitivity 107 ng/L (4-75) H RI-Wgw-W-Type Natriuretic Peptide 05089 pg/mL (0-124) H Total Protein 8.1 g/dL (6.4-8.2) Albumin 3.5 g/dL (3.4-5.0) Albumin/Globulin Ratio 0.8 (1.0-1.7) L Ethyl Alcohol Level < 10 mg/dL (0-10) O2 Saturation 100 % (92-99) H Arterial Blood pH 7.40 (7.35-7.45) Arterial Blood pCO2 at Patient Temp 39 mmHg (35-46) Arterial Blood pO2 at Patient Temp 184 mmHg (65-108) H Arterial Blood HCO3 23 mmol/L (21-28) Arterial Blood Base Excess -1 mmol/L (-3-3) FiO2 60 Urine Opiates Screen Neg (NEG) Urine Methadone Screen Neg (NEG) Urine Barbiturates Neg (NEG) Urine Phencyclidine Screen Neg (NEG) Urine Amphetamine/Methamphetamine Neg (NEG) Urine Benzodiazepines Screen Neg (NEG) Urine Cocaine Screen Pos (NEG) Urine Cannabinoids Screen Neg (NEG) Urine Ethyl Alcohol Neg (NEG) Laboratory Tests 11/18/21 01:00 Laboratory Tests 11/18/21 01:00 ASSESSMENT/PLAN ASSESSMENT/PLAN 1. Acute on chronic CHF with possible diastolic dysfunction: possibly induced by uncontrolled HTN with associated cocaine 2. Malignant HTN 3. NSTEMI: Suspect demand mediated type 2 with above culprits 4. S/P Right nephrectomy: about 2 weeks ago due to CA 5. ESRD 6. DM2 7. Cocaine use: used it last night 8. Tobacco abuse Recommendations 1. DC NTG drip. Start norvasc, bidil. No BB for now 2. ASA 3. TTE, trend troponin 4. Obtain CABG record 5. Will need ischemic workup pending test results inpt vs outpt 6. Discussed cocaine and tobacco cessation 7. Fluid off loading per HD RADHA HULL MD 11/18/211931: CARDIAC CONSULT ASSESSMENT/PLAN ASSESSMENT/PLAN Patient seen and examined. Agree with APARTMENT LEASING SPECIALIST's assessment and plan. CAD s/p CABG presenting with NSTEMI probably demand ischemia probably from uncontrolled HTN/cocaine use 2D echo showed normal LV function Trend cardiac enzymes and consider cardiac cath if they continue to increasse Titrate antihypertensives for better BP control Importance of abstinence from cocaine use reemphasized Continue hemodialysis per nephrology team Thank you for your consultation NIKKIE JEREZ APRN Nov 18, 2021 09:25 RADHA HULL MD Nov 18, 2021 19:32
[2021-11-18] MEDS ORDERED: LISI20TA18 PO (09:31)
[2021-11-18] MEDS ORDERED: ACET500T68 PO (09:31)
[2021-11-18] MEDS ORDERED: FERR220S8 PO (09:31)
[2021-11-18] MEDS ORDERED: FURO20TA3 PO (09:31)
[2021-11-18] MEDS ORDERED: ATOR40TA59 PO (09:31)
[2021-11-18] MEDS ORDERED: METO50TA4 PO (09:31)
[2021-11-18] MEDS ORDERED: DICL150D9 TP (09:31)
[2021-11-18] MEDS ORDERED: ASPI81TA59 PO (09:31)
[2021-11-18] MEDS ORDERED: NIFE60TA14 PO (09:31)
[2021-11-18] MEDS ORDERED: SENN8.6T11 PO (09:31)
[2021-11-18] MEDS: ASPIRIN ENTERIC COATED 81 MG TABLET.DR. PO SCH (09:46)
[2021-11-18] MEDS: ISOSORBIDE MONONITRATE ER 30 MG TAB.ER.24H PO SCH (09:47)
[2021-11-18] MEDS: LISINOPRIL 20 MG TABLET PO SCH (09:47)
[2021-11-18 09:49] LABS: CHOLESTEROL/HDL RATIO 1.8
--- NOTE | 2021-11-18 09:54 | NUR ---
Notified MEGGAN Gaytan of patients elevated Troponin. No new orders received.
--- NOTE | 2021-11-18 09:59 | PDOC ---
Provider Note Date of Service: DATE: 11/18/21 TIME: 09:58 Provider Note H&P [id number] Justifications for Admission Other Justification SAGAR WISE MD Nov 18, 2021 09:58
--- NOTE | 2021-11-18 12:47 | HP ---
DATE OF SERVICE: 11/18/2021 ADMIT DATE: 11/18/2021 HISTORY OF PRESENT ILLNESS: This is a 66 years old male who has a history of coronary artery disease status post CABG, diabetes mellitus, hypertension who has end-stage renal disease, on hemodialysis and who also has renal cell carcinoma and recently underwent right nephrectomy for renal cell carcinoma, used cocaine yesterday evening. Subsequently, he became very short of breath and hypoxic and came to the Emergency Room. In the Emergency Room, the patient was noted to have flash pulmonary edema on chest x-ray. Blood pressure in the Emergency Room was 270/115 mmHg. He had dialysis the previous day. He was placed on BiPAP, started on high dose nitroglycerin drip and IV Lasix. His blood pressure started responding and his dyspnea started improving and he was admitted to Intensive Care Unit. CT scan of chest, abdomen and pelvis showed plaquing of multiple arteries including thoracic aorta, abdominal aorta and abdominal arteries and iliac arteries, pulmonary edema and small bilateral pleural effusions, anasarca and lumbar disk disease and thoracic disk disease and ectasia of the ascending thoracic aorta diameter 3.9 cm. WBC count was 13.2, hemoglobin 10.5, INR 1, BUN 137, creatinine 4.5, sodium 137, potassium 4.5, BUN 31, creatinine 6.3, glucose 151, lactic acid 1.4, BNP 19,907, troponin 107, AST 34, ALT 33, LDL 42. The patient was admitted to ICU because of acute pulmonary edema. He also had acute hypertensive crisis. PAST MEDICAL HISTORY: The patient has diabetes since 2000, coronary artery disease with CABG in 2004, hypertension in 2000, has a history of hyperlipidemia, end-stage renal disease, on hemodialysis, started in 2020. He also has renal cell carcinoma of the right kidney. PAST SURGICAL HISTORY: Renal cell carcinoma with right nephrectomy in 09/2021. He has hemodialysis catheter, he has CABG in 2004. ALLERGIES: None known any. MEDICATIONS: Reviewed and reconciled. FAMILY HISTORY: Brother has hypertension. Mother has diabetes mellitus and hypertension. Father had cancer and mother also had cancer. SOCIAL HISTORY: He has a history of 27.75 pack a year smoking history. Does use alcohol. History of cocaine abuse. PHYSICAL EXAMINATION: VITAL SIGNS: Pulse 106 per minute, respirations 20 per minute, blood pressure 239/131 mmHg, temperature 97.7. GENERAL: The patient is an elderly male who is alert, oriented, and not in acute distress. EYES: Pupils reactive to light. Conjunctivae pale. Sclerae muddy. HEENT: Unremarkable. NECK: Supple. JVP normal. No thyromegaly. Trachea midline. LUNGS: Decreased breath sounds at bases. CARDIOVASCULAR: S1, S2, regular. ABDOMEN: Soft, nontender, no guarding, no rigidity. Bowel sounds present. EXTREMITIES: Edema is much better. Last night, the patient stated that he had lot of swelling. CENTRAL NERVOUS SYSTEM: Alert and oriented. Generalized weakness. LABORATORY FINDINGS; As noted earlier. IMPRESSION: 1. Acute pulmonary edema and [id number] congestive heart failure, likely because of hypertensive crisis, likely induced by cocaine abuse. 2. End-stage renal disease, on hemodialysis. 3. Recent renal cell carcinoma, status post right nephrectomy. 4. Coronary artery disease, status post coronary artery bypass graft. 5. Acute pulmonary edema. 6. Leukocytosis. Chest x-ray shows infiltrates. Monitor for pneumonia. 7. Diabetes mellitus type 2, monitor blood sugar. 8. Anemia. 9. Physical deconditioning. 10. Cocaine abuse. PLAN: 1. Acute pulmonary edema, improving. The patient is admitted to ICU. Consult Dr. Sanchez for cardiology evaluation and management. 2. End-stage renal disease, on hemodialysis. Consult Dr. Carney, for nephrology evaluation and management. Continue hemodialysis Sunday, Sunday, Sunday. 3. Cocaine abuse. The patient is strongly advised to avoid illicit drugs. 4. Diabetes mellitus. Monitor. 5. Hypertensive crisis, improved. Resume home medications. For details, please refer to the orders. Consult Dr. Kennedy for pulmonary evaluation and management, Dr. Carney for nephrology evaluation and management. Monitor leukocytosis. PBP/NIT/[facility]: FLORENCIA/shiela TID: [id number]
[2021-11-18] MEDS: hydrALAZINE 20 MG/ML VIAL. IVP PRN (13:35)
--- NOTE | 2021-11-18 13:44 | EKG ---
[facility] [address] [place] [address] Test Date: 2021-11-18 Test Time: 13:46:47 Pat Name: ROLANDO VERONICA Department: Room: 105 1 Gender: M Electronic Service Technician: : 1955 Requested By: NIKKIE JEREZ Order Number: [id number] Reading MD: Florentin Landrum Measurements Intervals Fielding Rate: 81 P: 39 MI: 126 QRS: 14 QRSD: 96 T: 146 QT: 442 QTc: 514 Interpretive Statements SINUS RHYTHM LEFT ATRIAL ABNORMALITY LVH WITH REPOLARIZATION ABNORMALITY PROLONGED QT DIFFUSE ST-T WAVE CHANGES, POSSIBLE ISCHEMIA Electronically Signed On 11-23-2021 17:56:53 CDT by Florentin Landrum
--- NOTE | 2021-11-18 13:45 | CARD ---
MR#: [id number] Date of Study: 11/18/2021 Ordering Physician: NIKKIE JEREZ, Referring Physician: Diane MORELAND: Prashanth Leon [facility] APPROVED REPORT EXAM: Two-dimensional and M-mode echocardiogram with Doppler and color Doppler. Other Information Quality : GoodHR: 76bpm Rhythm : NSR INDICATION Dyspnea Congestive Heart Failure Surgery/Intervention CABG: RISK FACTORS Hypertension Hyperlipidemia Diabetes Smoking 2D DIMENSIONS Left Atrium(2D)4.2 (1.6-4.0cm)IVSd1.6 (0.7-1.1cm) Aortic Root(2D)3.8 (2.0-3.7cm)LVDd5.4 (3.9-5.9cm) LVOT Diameter2.4 (1.8-2.4cm)PWd1.6 (0.7-1.1cm) LA Fkfiwg262 (18-58mL)LVDs3.9 (2.5-4.0cm) FS (%) 28.1 %SV74.9 ml Aortic Valve AoV Peak Jack.184.5cm/sAoV VTI33.4cm AO Peak GR.13.6mmHgLVOT Peak Jack.83.6cm/s AO Mean GR.7mmHgAVA (VMAX)2.02cm2 AI P 1/2 Fnqe256bw Mitral Valve MV E Lxovrhmk58.7cm/sMV E Peak Gr.4mmHg MV DECEL [id number] A Pxcqicbd128.9cm/s MV E Mean Gr.2mmHgE/A Ratio0.9 Pulmonary Valve PV Peak Zbftjxxr41.9cm/s Tricuspid Valve TR P. Hikfsidj917sp/sTR Peak Gr.44mmHg Pulmonary Vein S1 Llvpfiyc24.0cm/sD2 Qbdjowfk83.2cm/s LEFT VENTRICLE The left ventricle is normal size. There is mild to moderate concentric left ventricular hypertrophy. The left ventricular systolic function is normal. The Ejection Fraction is 50-55%. There is normal L V segmental wall motion. Tissue Doppler imaging reveals abnormal left ventricular diastolic dysfuncti on. No left ventricle thrombus noted on this study. There is no ventricular septal defect visualized. There is no left ventricular aneurysm. There is no mass noted in the left ventricle. RIGHT VENTRICLE The right ventricle is normal size. There is normal right ventricular wall thickness. The right ventr icular systolic function is normal. ATRIA The left atrium is moderately dilated. The right atrium size is normal. The interatrial septum is int act with no evidence for an atrial septal defect or patent foramen ovale as noted on 2-D or Doppler i maging. AORTIC VALVE The aortic valve is calcified but opens well. Doppler and Color Flow revealed mild aortic regurgitati on. There is no significant aortic valvular stenosis. There is no aortic valvular vegetation. MITRAL VALVE The mitral valve is thickened but opens well. Mitral annular calcification is mild. There is no evide nce of mitral valve prolapse. There is no mitral valve stenosis. Doppler and Color-flow revealed mild mitral regurgitation. TRICUSPID VALVE The tricuspid valve is normal in structure and function. Doppler and Color Flow revealed mild tricusp id regurgitation. The PA pressure was estimated at 46 mmHg. There is no tricuspid valve prolapse or v egetation. There is no tricuspid valve stenosis. PULMONIC VALVE The pulmonary valve is normal in structure and function. There is mild pulmonic regurgitation. There is no pulmonic valvular stenosis. GREAT VESSELS The aortic root is normal in size. The ascending aorta is normal in size. The pulmonary artery is nor mal. The IVC is dilated with blunted inspiratory response. PERICARDIAL EFFUSION There is no pleural effusion. There is no evidence of significant pericardial effusion. Critical Notification Critical Value: No <Conclusion> The left ventricle is normal size. The left ventricular systolic function is normal. The Ejection Fraction is 50-55%. There is mild to moderate concentric left ventricular hypertrophy. Doppler and Color Flow revealed mild aortic regurgitation. There is no significant aortic valvular stenosis. Doppler and Color-flow revealed mild mitral regurgitation. Doppler and Color Flow revealed mild tricuspid regurgitation. The PA pressure was estimated at 46 mmHg. Signed by : Florentin Landrum MD Electronically Approved : 11/18/2021 13:44:44
[2021-11-18] MEDS ORDERED: HEPARIN for IV BOLUS 10,000 UNIT/10 ML VIAL. IV PRN (14:00)
[2021-11-18] MEDS: HEPARIN 25,000UTS/250ML PREMIX 250 ML IV PRN (14:30)
--- NOTE | 2021-11-18 15:08 | NUR ---
Notified Dr. Cuellar of recent troponin level 11,560, no new orders.
--- NOTE | 2021-11-18 15:16 | NUR ---
SS following for discharge planning. SS reviewed pt chart and discussed with pt RN. Pt lives in Independent Living. Pt is currently requiring oxygen at four liters nasal canula. Pt has no home oxygen. Cardiology and Nephrology following. Heparin drip. Pt has outpatient hemodialysis at [facility], ; fax [phone], Sunday, Sunday, and Sunday. SS will continue to follow for discharge planning.
[2021-11-18] MEDS ORDERED: 0.9 % SODIUM CHLORIDE 10 ML DISP.SYRIN. IV PRN ×2 (16:15)
[2021-11-18] MEDS ORDERED: IV NORMAL SALINE 1000ML BAG 1,000 ML IV PRN (16:15)
[2021-11-18] MEDS ORDERED: ALBUMIN HUMAN 25% 200 ML IV PRN (16:15)
[2021-11-18] MEDS ORDERED: DIALYSIS PATIENT. MC PRN ×2 (16:15)
--- NOTE | 2021-11-18 21:44 | CONS ---
DATE OF CONSULTATION: 11/18/2021 ATTENDING PHYSICIAN: Conchita Umanzor MD REASON FOR CONSULTATION: The patient is seen in pulmonary consultation at the request of Dr. Umanzor for acute hypoxemic respiratory failure, requiring noninvasive ventilation. Initial chest x-ray revealed bilateral pulmonary infiltrates compatible with pulmonary edema. HISTORY OF PRESENT ILLNESS: The patient is a 66-year-old male with a history of hypertension, hyperlipidemia, coronary artery disease with previous coronary artery bypass surgery. He also has end-stage renal disease, on hemodialysis. The patient presented after smoking cocaine. EMS was summoned to his home. The patient with labored breathing. Decrease O2 saturation. His chest x-ray revealed cardiomegaly, pulmonary vascular congestion. His blood pressure was elevated 270/150. The patient was treated in the Emergency Room with noninvasive ventilation. I was asked to see him in consultation. He was given IV medication for his malignant hypertension. He was initially started on IV nitroglycerin. This morning when I saw him, the patient was feeling better. He was off of BiPAP. He reports no fever, chills, night sweats. He states he has been compliant with his hemodialysis and home medications. He had a CT chest, which I personally reviewed, revealing pulmonary edema. PAST MEDICAL HISTORY: Otherwise remarkable for hypertension, coronary artery disease, chronic heart failure, hyperlipidemia, gastroesophageal reflux; coronary artery disease, status post coronary artery bypass grafting; chronic renal failure, on hemodialysis; diabetes. PAST SURGICAL HISTORY: He has had previous right renal nephrectomy, status post CABG. FAMILY HISTORY: Diabetes. SOCIAL HISTORY: He admits to utilizing crack cocaine. He smokes less than a pack of cigarettes a day. REVIEW OF SYSTEMS: As indicated above, otherwise a 10-point system was reviewed and negative. CURRENT MEDICATIONS: List was reviewed. He is currently on heparin drip. He was initially on IV nitroglycerin. PHYSICAL EXAMINATION: GENERAL: The patient appeared to be older than stated age. VITAL SIGNS: Stable. O2 saturation was greater than 92%, currently requiring 4 liters of oxygen supplementation. HEENT: Eyes: The sclerae were nonicteric. NECK: Jugular venous distention was not elevated. No lymphadenopathy. CHEST: Full expansion. LUNGS: Crackles throughout both lung paul. CARDIOVASCULAR: Regular rate and rhythm with S1, S2, no S3. ABDOMEN: Soft, nontender. EXTREMITIES: No clubbing, cyanosis or edema. NEUROLOGIC: The patient was awake, alert, following commands. A detailed neuro exam was not performed. LABORATORY DATA: Reviewed. White count was 13,000, hemoglobin and hematocrit of 10 and 32. Arterial blood gas on BiPAP, pH of 7.40, PaCO2 of 39, pO2 of 184. BNP was elevated. Chest x-ray as indicated above. BUN was elevated. Creatinine was elevated. IMPRESSION: 1. Acute hypoxemic respiratory failure secondary to acute pulmonary edema. 2. Acute pulmonary edema secondary to malignant hypertension. 3. Coronary artery disease, status post coronary artery bypass grafting. 4. Uncontrolled hypertension related to cocaine use. 5. Non-ST segment elevation myocardial infarction. 6. Status post right nephrectomy approximately 2 weeks ago due to what the patient thinks his cancer. 7. End-stage renal disease. 8. Tobacco use/chronic obstructive pulmonary disease. PLAN: 1. The patient is doing better off of noninvasive ventilation. Continue nasal cannula oxygen. 2. No need for antibiotics. Chest x-ray is compatible with pulmonary edema, not infectious. 3. Leukocytosis is likewise secondary to reactive process. 4. Follow Cardiology input. 5. Control blood pressure. 6. Emergent hemodialysis. 7. The patient is instructed on the importance of discontinuing cocaine use and tobacco use. I do appreciate the privilege in sharing in the patient's care. Total cumulative critical care [address]: Caterina TID: [id number]
[2021-11-19] VITALS (12 sets, daily range): BP systolic 100–181; BP diastolic 67–84
[2021-11-19] MEDS: fentaNYL PF VIAL 100 MCG/2 ML VIAL IV PRN (06:21)
[2021-11-19 07:49] LABS: BASO % 0 % (0-3); EOS # 0.1 x10^3/uL (0.0-0.7); EOS % 2 % (0-3); HEMOGLOBIN 9.5 g/dL (13.0-17.5); LYMPH # 1.2 x10^3/uL (1.0-4.8); LYMPH % 23 % (24-48); MEAN CORPUSCULAR HEMOGLOBIN 27 pg (25-35); MEAN CORPUSCULAR HGB CONC 33 g/dL (31-37); MEAN CORPUSCULAR VOLUME 81 fL (79-100); MONO # 0.7 x10^3/uL (0.0-1.1); MONO % 13 % (0-9); NEUT # 3.4 x10^3/uL (1.8-7.7); NEUT % 62 % (31-73); PLATELET COUNT 211 x10^3/uL (140-400); RED BLOOD COUNT 3.58 x10^6/uL (4.30-5.70); RED CELL DISTRIBUTION WIDTH 18.9 % (11.5-14.5); WHITE BLOOD COUNT 5.5 x10^3/uL (4.0-11.0)
[2021-11-19 08:04] LABS: ALBUMIN 2.9 g/dL (3.4-5.0); ALBUMIN/GLOBULIN RATIO 0.7 (1.0-1.7); CALCIUM 8.1 mg/dL (8.5-10.1); CREATININE 5.6 mg/dL (0.7-1.3); GFR 12.4; MAGNESIUM 2.2 mg/dL (1.8-2.4); POTASSIUM 4.4 mmol/L (3.5-5.1); TOTAL BILIRUBIN 0.4 mg/dL (0.2-1.0); TOTAL PROTEIN 7.2 g/dL (6.4-8.2)
[2021-11-19] MEDS: ASPIRIN ENTERIC COATED 81 MG TABLET.DR. PO SCH (09:02)
[2021-11-19] MEDS: LISINOPRIL 20 MG TABLET PO SCH (09:02)
[2021-11-19] MEDS: ISOSORBIDE MONONITRATE ER 30 MG TAB.ER.24H PO SCH (09:03)
--- NOTE | 2021-11-19 09:43 | PDOC ---
IM PROGRESS NOTES- Subjective Subjective Dyspnea is improving. Had nausea,vomiting this morning. Objective Vitals/I&O Vital Signs Date Time Temp Pulse Resp B/P (MAP) Pulse Ox O2 Delivery O2 Flow Rate FiO2 11/19/21 09:03 77 163/77 11/19/21 08:00 16 98 Nasal Cannula 5.0 11/19/21 07:00 98.1 98.1 I & O 11/18/21 11/18/21 11/19/21 15:00 23:00 07:00 Intake Total 510 ml 175 ml 150 ml Output Total 225 ml 0 ml 275 ml Balance 285 ml 175 ml -125 ml Physical Exam Physical Exam General Appearance - alert and in no distress Chest - decreased breath sounds at bases Heart - S1 and S2 normal Abdomen - soft, non tender Neurological - alert and oriented Musculoskeletal - generalized weakness Extremities - trace edema Labs Laboratory Tests Test 11/18/21 13:52 11/18/21 21:02 11/19/21 04:55 11/19/21 07:35 Troponin I High Sensitivity 60032 ng/L (4-75) H Heparin Anti-Xa Act, Unfractionated 0.13 IU/mL (0.30-0.70) L 0.37 IU/mL (0.30-0.70) White Blood Count 5.5 x10^3/uL (4.0-11.0) Red Blood Count 3.58 x10^6/uL (4.30-5.70) L Hemoglobin 9.5 g/dL (13.0-17.5) L Hematocrit 29.0 % (39.0-53.0) L Mean Corpuscular Volume 81 fL (79-100) Mean Corpuscular Hemoglobin 27 pg (25-35) Mean Corpuscular Hemoglobin Concent 33 g/dL (31-37) Red Cell Distribution Width 18.9 % (11.5-14.5) H Platelet Count 211 x10^3/uL (140-400) Neutrophils (%) (Auto) 62 % (31-73) Lymphocytes (%) (Auto) 23 % (24-48) L Monocytes (%) (Auto) 13 % (0-9) H Eosinophils (%) (Auto) 2 % (0-3) Basophils (%) (Auto) 0 % (0-3) Neutrophils # (Auto) 3.4 x10^3/uL (1.8-7.7) Lymphocytes # (Auto) 1.2 x10^3/uL (1.0-4.8) Monocytes # (Auto) 0.7 x10^3/uL (0.0-1.1) Eosinophils # (Auto) 0.1 x10^3/uL (0.0-0.7) Basophils # (Auto) 0.0 x10^3/uL (0.0-0.2) Sodium Level 135 mmol/L (136-145) L Potassium Level 4.4 mmol/L (3.5-5.1) Chloride Level 99 mmol/L (98-107) Carbon Dioxide Level 30 mmol/L (21-32) Anion Gap 6 (6-14) Blood Urea Nitrogen 25 mg/dL (8-26) Creatinine 5.6 mg/dL (0.7-1.3) H Estimated GFR (Cockcroft-Gault) 12.4 BUN/Creatinine Ratio 4 (6-20) L Glucose Level 75 mg/dL (70-99) Calcium Level 8.1 mg/dL (8.5-10.1) L Magnesium Level 2.2 mg/dL (1.8-2.4) Total Bilirubin 0.4 mg/dL (0.2-1.0) Aspartate Amino Transferase (AST) 44 U/L (15-37) H Alanine Aminotransferase (ALT) 24 U/L (16-63) Alkaline Phosphatase 70 U/L (46-116) Total Protein 7.2 g/dL (6.4-8.2) Albumin 2.9 g/dL (3.4-5.0) L Albumin/Globulin Ratio 0.7 (1.0-1.7) L Laboratory Tests 11/19/21 07:35 Laboratory Tests 11/19/21 07:35 Meds Current Medications Medications (Trade) Dose Ordered Sig/Yossi Route PRN Reason Start Time Stop Time Status Last Admin Dose Admin Amlodipine Besylate (Norvasc) 10 mg 1X ONCE PO 11/18/21 10:00 11/18/21 10:01 DC 11/18/21 09:47 Hydralazine HCl (Apresoline) 50 mg TID PO 11/18/21 10:00 11/19/21 09:02 Isosorbide Mononitrate (Imdur) 30 mg DAILY PO 11/18/21 10:00 11/19/21 09:03 Aspirin (Ecotrin) 81 mg DAILYWBKFT PO 11/18/21 10:00 11/19/21 09:02 Lisinopril (Prinivil) 20 mg DAILY PO 11/18/21 10:00 11/19/21 09:02 Amlodipine Besylate (Norvasc) 10 mg BID PO 11/18/21 21:00 11/18/21 21:24 Hydralazine HCl (Apresoline Inj) 10 mg PRN Q4HRS PRN IVP ELEVATED BP, SEE COMMENTS 11/18/21 13:15 11/18/21 13:35 Heparin Sodium/ Dextrose 250 ml @ 10 mls/hr CONT PRN IV PER PROTOCOL 11/18/21 14:00 11/18/21 14:30 Heparin Sodium (Porcine) (Heparin Sodium) 2,250 unit PRN Q6HRS PRN IV FOR UFH LEVEL LESS THAN 0.2 11/18/21 14:00 11/18/21 21:47 Assessment Assessment 1. Acute pulmonary edema and qwmdg-eg-soggspb congestive heart failure, likely because of hypertensive crisis, likely induced by cocaine abuse. 2. End-stage renal disease, on hemodialysis. 3. Recent renal cell carcinoma, status post right nephrectomy. 4. Coronary artery disease, status post coronary artery bypass graft. 5. Acute pulmonary edema. 6. Leukocytosis. Chest x-ray shows infiltrates. Monitor for pneumonia. 7. Diabetes mellitus type 2, monitor blood sugar. 8. Anemia. 9. Physical deconditioning. 10. Cocaine abuse. 11. Acute NSTEMI. PLAN: 1. Acute pulmonary edema, improving. The patient is admitted to ICU. Consult Dr. Sanchez for cardiology evaluation and management. Echocardiogram 11/18/21 The left ventricle is normal size. The left ventricular systolic function is normal. The Ejection Fraction is 50-55%. There is mild to moderate concentric left ventricular hypertrophy. Doppler and Color Flow revealed mild aortic regurgitation. There is no significant aortic valvular stenosis. Doppler and Color-flow revealed mild mitral regurgitation. Doppler and Color Flow revealed mild tricuspid regurgitation. The PA pressure was estimated at 46 mmHg. 2. End-stage renal disease, on hemodialysis. Consult Dr. Bullock for nephrology evaluation and management. Continue hemodialysis Sunday, Sunday, Sunday. 3. Cocaine abuse. The patient is strongly advised to avoid illicit drugs. 4. Diabetes mellitus. Monitor. 5. Hypertensive crisis, improved. Resume home medications. 6. Acute NSTEMI- likely due to demand ischemia. IV Heparin drip. 6. Vomiting. Compazine prn. For details, please refer to the orders. Consult Dr. Kennedy for pulmonary evaluation and management, Dr. Bullock for nephrology evaluation and management. Leukocytosis resolved. Likely reactive. Plan Plan For more details regarding further plans, please refer to the orders. Justifications for Admission Other Justification SAGAR WISE MD Nov 19, 2021 09:43
[2021-11-19] MEDS ORDERED: PROCHLORPERAZINE 10 MG/2 ML VIAL. IV PRN ×2 (10:30→10:45)
[2021-11-19] MEDS ORDERED: ONDANSETRON PF 4 MG/2 ML VIAL. IVP PRN (10:30)
[2021-11-19] MEDS: HEPARIN 25,000UTS/250ML PREMIX 250 ML IV PRN (10:49)
--- NOTE | 2021-11-19 11:27 | PDOC ---
DATE OF SERVICE: DOS: DATE: 11/19/21 TIME: 11:20 SUBJECTIVE ROS Follow-up for ESRD on hemodialysis Sunday Patient is more concerned about her lack of TV signal. Denies chest pain CVS: no Orthopnea, no CP RESP: no SOB, no JESSICA GI: no Nausea, no Vomiting : no Dysuria, no Urgency OBJECTIVE Vital Signs Vital Signs Date Time Temp Pulse Resp B/P (MAP) Pulse Ox O2 Delivery O2 Flow Rate FiO2 11/19/21 09:03 77 163/77 11/19/21 08:00 16 98 Nasal Cannula 5.0 11/19/21 07:00 98.1 98.1 I & 0 Intake and Output 11/19/21 07:00 Intake Total 835 ml Output Total 500 ml Balance 335 ml Intake Oral 835 ml Output Urine Total 425 ml Emesis 75 ml PHYSICAL EXAM Physical Exam GEN: Awake, Oriented x 1-2 , In no distress EYES: Vision Unchanged, Conjunctiva Normal EN: No EN Drainage, Mucous Membranes moist NECK: no JVD, no JVP, Supple, no Thyromegaly CVS: S1S2, ? Murmur, No Gallop, No Rub,no Edema RESP: no Rales, no Rhonchi,no Acc. Muscle Use GI: BS + ve, NO Bruit, Non Tender, Non Distended : no CVA tenderness, no Suprapubic Tenderness DIAGNOSIS/ASSESSMENT Assessment & Plan ESRD : Current fluid and E-lyte status does not necessitate emergent need for dialysis. Will re-evaluate for dialysis in the am and continue on MWF schedule. ANEMIA; Aranap as ordered, Transfuse with next HD as needed HTN: Current BP meds as reviewed. See orders for changes. BONE & MINERAL: Follow phosphorus levels and on combined regimen as needed Non-STEMI: This is in the setting of positive cocaine use. Discussed Plan of Care with Dr. Manriquez, plans for left heart cath on Sunday Acute on chronic CHF clinically appears to be compensated currently Acute Resp Failure 2/2 AC on Chr CHF ; Cxr and CT cw Pulmonary edema and small pleural effusions. Off Bipap , On O2 by nc defer further management to pulmonology Cocaine use: Drug screen positive, ongoing Tobacco abuse COMMENT/RELEVANT DATA Meds Current Medications Medications (Trade) Dose Ordered Sig/Yossi Start Time Stop Time Status Last Admin Dose Admin Acetaminophen (Tylenol) 1,000 mg 1X ONCE 11/18/21 03:30 11/18/21 03:31 DC Albumin Human 200 ml @ 200 mls/hr 1X PRN PRN 11/18/21 16:15 11/18/21 22:14 DC Amlodipine Besylate (Norvasc) 10 mg BID 11/18/21 21:00 11/18/21 21:24 10 MG Aspirin (Ecotrin) 81 mg DAILYWBKFT 11/18/21 10:00 11/19/21 09:02 81 MG Fentanyl Citrate (Fentanyl 2ml Vial) 50 mcg PRN Q2HRS PRN 11/18/21 07:00 11/19/21 06:21 50 MCG Furosemide (Lasix) 40 mg 1X ONCE 11/18/21 02:30 11/18/21 02:31 DC 11/18/21 03:26 40 MG Heparin Sodium (Porcine) (Heparin Sodium) 2,250 unit PRN Q6HRS PRN 11/18/21 14:00 11/18/21 21:47 2,250 UNIT Heparin Sodium/ Dextrose 250 ml @ 10 mls/hr CONT PRN 11/18/21 14:00 11/19/21 10:49 10 MLS/HR Hydralazine HCl (Apresoline Inj) 10 mg PRN Q4HRS PRN 11/18/21 13:15 11/18/21 13:35 10 MG Hydralazine HCl (Apresoline) 50 mg TID 11/18/21 10:00 11/19/21 09:02 50 MG Info (CONTRAST GIVEN -- Rx MONITORING) 1 each PRN DAILY PRN 11/18/21 03:45 11/20/21 03:44 Info (PHARMACY MONITORING -- do not chart) 1 each PRN DAILY PRN 11/18/21 16:15 Iohexol (Omnipaque 350 Mg/ml) 100 ml 1X ONCE 11/18/21 04:00 11/18/21 04:01 DC 11/18/21 03:54 90 ML Isosorbide Mononitrate (Imdur) 30 mg DAILY 11/18/21 10:00 11/19/21 09:03 30 MG Lisinopril (Prinivil) 20 mg DAILY 11/18/21 10:00 11/19/21 09:02 20 MG Nitroglycerin/ Dextrose 250 ml @ 1.5 mls/hr CONT PRN 11/18/21 06:15 11/18/21 06:14 42 MLS/HR Ondansetron HCl (Zofran) 4 mg PRN Q8HRS PRN 11/19/21 10:30 Prochlorperazine Edisylate (Compazine) 10 mg PRN Q6HRS PRN 11/19/21 10:45 Sodium Chloride (Normal Saline Flush) 10 ml 1X PRN PRN 11/18/21 16:15 11/19/21 16:14 Lab Laboratory Tests Test 11/18/21 13:52 11/18/21 21:02 11/19/21 04:55 11/19/21 07:35 Troponin I High Sensitivity 09670 ng/L (4-75) Heparin Anti-Xa Act, Unfractionated 0.13 IU/mL (0.30-0.70) 0.37 IU/mL (0.30-0.70) White Blood Count 5.5 x10^3/uL (4.0-11.0) Red Blood Count 3.58 x10^6/uL (4.30-5.70) Hemoglobin 9.5 g/dL (13.0-17.5) Hematocrit 29.0 % (39.0-53.0) Mean Corpuscular Volume 81 fL (79-100) Mean Corpuscular Hemoglobin 27 pg (25-35) Mean Corpuscular Hemoglobin Concent 33 g/dL (31-37) Red Cell Distribution Width 18.9 % (11.5-14.5) Platelet Count 211 x10^3/uL (140-400) Neutrophils (%) (Auto) 62 % (31-73) Lymphocytes (%) (Auto) 23 % (24-48) Monocytes (%) (Auto) 13 % (0-9) Eosinophils (%) (Auto) 2 % (0-3) Basophils (%) (Auto) 0 % (0-3) Neutrophils # (Auto) 3.4 x10^3/uL (1.8-7.7) Lymphocytes # (Auto) 1.2 x10^3/uL (1.0-4.8) Monocytes # (Auto) 0.7 x10^3/uL (0.0-1.1) Eosinophils # (Auto) 0.1 x10^3/uL (0.0-0.7) Basophils # (Auto) 0.0 x10^3/uL (0.0-0.2) Sodium Level 135 mmol/L (136-145) Potassium Level 4.4 mmol/L (3.5-5.1) Chloride Level 99 mmol/L (98-107) Carbon Dioxide Level 30 mmol/L (21-32) Anion Gap 6 (6-14) Blood Urea Nitrogen 25 mg/dL (8-26) Creatinine 5.6 mg/dL (0.7-1.3) Estimated GFR (Cockcroft-Gault) 12.4 BUN/Creatinine Ratio 4 (6-20) Glucose Level 75 mg/dL (70-99) Calcium Level 8.1 mg/dL (8.5-10.1) Magnesium Level 2.2 mg/dL (1.8-2.4) Total Bilirubin 0.4 mg/dL (0.2-1.0) Aspartate Amino Transf (AST/SGOT) 44 U/L (15-37) Alanine Aminotransferase (ALT/SGPT) 24 U/L (16-63) Alkaline Phosphatase 70 U/L (46-116) Total Protein 7.2 g/dL (6.4-8.2) Albumin 2.9 g/dL (3.4-5.0) Albumin/Globulin Ratio 0.7 (1.0-1.7) Results All relevant outside records, renal labs, imaging studies, telemetry/EKG's were reviewed. Justicifation of Admission Dx: Justifications for Admission: Justification of Admission Dx: N/A JESSICA GALLEGOS MD Nov 19, 2021 11:27
--- NOTE | 2021-11-19 13:29 | PDOC ---
PULMONARY PROGRESS NOTES DATE: 11/19/21 TIME: 13:26 Subjective Patient did well overnight, did not use BiPAP, currently on room air Sitting up in a chair No emesis No chest pain no pressure Vitals Vital Signs Date Time Temp Pulse Resp B/P (MAP) Pulse Ox O2 Delivery O2 Flow Rate FiO2 11/19/21 09:03 77 163/77 11/19/21 08:00 16 98 Nasal Cannula 5.0 11/19/21 07:00 98.1 98.1 ROS: No Nausea, No Chest Pain, No Abdominal Pain, No Increase Cough General: Alert Lungs: Crackles Cardiovascular: S1, S2 Abdomen: Soft Neuro Exam: Alert, Oriented Extremities: No Edema Skin: Warm Labs Laboratory Tests Test 11/18/21 01:00 11/18/21 01:58 11/18/21 07:30 11/18/21 09:05 White Blood Count 13.2 x10^3/uL (4.0-11.0) Red Blood Count 4.00 x10^6/uL (4.30-5.70) Hemoglobin 10.5 g/dL (13.0-17.5) Hematocrit 32.6 % (39.0-53.0) Mean Corpuscular Volume 81 fL (79-100) Mean Corpuscular Hemoglobin 26 pg (25-35) Mean Corpuscular Hemoglobin Concent 32 g/dL (31-37) Red Cell Distribution Width 19.3 % (11.5-14.5) Platelet Count 307 x10^3/uL (140-400) Neutrophils (%) (Auto) 78 % (31-73) Lymphocytes (%) (Auto) 13 % (24-48) Monocytes (%) (Auto) 7 % (0-9) Eosinophils (%) (Auto) 1 % (0-3) Basophils (%) (Auto) 1 % (0-3) Neutrophils # (Auto) 10.4 x10^3/uL (1.8-7.7) Lymphocytes # (Auto) 1.8 x10^3/uL (1.0-4.8) Monocytes # (Auto) 0.9 x10^3/uL (0.0-1.1) Eosinophils # (Auto) 0.1 x10^3/uL (0.0-0.7) Basophils # (Auto) 0.1 x10^3/uL (0.0-0.2) Prothrombin Time 13.2 SEC (11.7-14.0) Prothromb Time International Ratio 1.0 (0.8-1.1) Activated Partial Thromboplast Time 28 SEC (24-38) Sodium Level 137 mmol/L (136-145) Potassium Level 4.5 mmol/L (3.5-5.1) Chloride Level 97 mmol/L (98-107) Carbon Dioxide Level 26 mmol/L (21-32) Anion Gap 14 (6-14) Blood Urea Nitrogen 31 mg/dL (8-26) Creatinine 6.3 mg/dL (0.7-1.3) Estimated GFR (Cockcroft-Gault) 10.8 BUN/Creatinine Ratio 5 (6-20) Glucose Level 151 mg/dL (70-99) Lactic Acid Level 1.4 mmol/L (0.4-2.0) Calcium Level 8.4 mg/dL (8.5-10.1) Total Bilirubin 0.3 mg/dL (0.2-1.0) Aspartate Amino Transf (AST/SGOT) 34 U/L (15-37) Alanine Aminotransferase (ALT/SGPT) 33 U/L (16-63) Alkaline Phosphatase 86 U/L (46-116) Troponin I High Sensitivity 107 ng/L (4-75) 7482 ng/L (4-75) ML-Xbt-[id number]-Type Natriuretic Peptide 29356 pg/mL (0-124) Total Protein 8.1 g/dL (6.4-8.2) Albumin 3.5 g/dL (3.4-5.0) Albumin/Globulin Ratio 0.8 (1.0-1.7) Ethyl Alcohol Level < 10 mg/dL (0-10) O2 Saturation 100 % (92-99) Arterial Blood pH 7.40 (7.35-7.45) Arterial Blood pCO2 at Patient Temp 39 mmHg (35-46) Arterial Blood pO2 at Patient Temp 184 mmHg (65-108) Arterial Blood HCO3 23 mmol/L (21-28) Arterial Blood Base Excess -1 mmol/L (-3-3) FiO2 60 Urine Opiates Screen Neg (NEG) Urine Methadone Screen Neg (NEG) Urine Barbiturates Neg (NEG) Urine Phencyclidine Screen Neg (NEG) Urine Amphetamine/Methamphetamine Neg (NEG) Urine Benzodiazepines Screen Neg (NEG) Urine Cocaine Screen Pos (NEG) Urine Cannabinoids Screen Neg (NEG) Urine Ethyl Alcohol Neg (NEG) Triglycerides Level 41 mg/dL (0-150) Cholesterol Level 111 mg/dL (0-200) LDL Cholesterol, Calculated 42 mg/dL (0-100) VLDL Cholesterol, Calculated 8 mg/dL (0-40) Non-HDL Cholesterol Calculated 50 mg/dL (0-129) HDL Cholesterol 61 mg/dL (40-60) Cholesterol/HDL Ratio 1.8 Thyroid Stimulating Hormone (TSH) 1.981 uIU/mL (0.358-3.74) Test 11/18/21 13:52 11/18/21 21:02 11/19/21 04:55 11/19/21 07:35 Troponin I High Sensitivity 67485 ng/L (4-75) Heparin Anti-Xa Act, Unfractionated 0.13 IU/mL (0.30-0.70) 0.37 IU/mL (0.30-0.70) White Blood Count 5.5 x10^3/uL (4.0-11.0) Red Blood Count 3.58 x10^6/uL (4.30-5.70) Hemoglobin 9.5 g/dL (13.0-17.5) Hematocrit 29.0 % (39.0-53.0) Mean Corpuscular Volume 81 fL (79-100) Mean Corpuscular Hemoglobin 27 pg (25-35) Mean Corpuscular Hemoglobin Concent 33 g/dL (31-37) Red Cell Distribution Width 18.9 % (11.5-14.5) Platelet Count 211 x10^3/uL (140-400) Neutrophils (%) (Auto) 62 % (31-73) Lymphocytes (%) (Auto) 23 % (24-48) Monocytes (%) (Auto) 13 % (0-9) Eosinophils (%) (Auto) 2 % (0-3) Basophils (%) (Auto) 0 % (0-3) Neutrophils # (Auto) 3.4 x10^3/uL (1.8-7.7) Lymphocytes # (Auto) 1.2 x10^3/uL (1.0-4.8) Monocytes # (Auto) 0.7 x10^3/uL (0.0-1.1) Eosinophils # (Auto) 0.1 x10^3/uL (0.0-0.7) Basophils # (Auto) 0.0 x10^3/uL (0.0-0.2) Sodium Level 135 mmol/L (136-145) Potassium Level 4.4 mmol/L (3.5-5.1) Chloride Level 99 mmol/L (98-107) Carbon Dioxide Level 30 mmol/L (21-32) Anion Gap 6 (6-14) Blood Urea Nitrogen 25 mg/dL (8-26) Creatinine 5.6 mg/dL (0.7-1.3) Estimated GFR (Cockcroft-Gault) 12.4 BUN/Creatinine Ratio 4 (6-20) Glucose Level 75 mg/dL (70-99) Calcium Level 8.1 mg/dL (8.5-10.1) Magnesium Level 2.2 mg/dL (1.8-2.4) Total Bilirubin 0.4 mg/dL (0.2-1.0) Aspartate Amino Transf (AST/SGOT) 44 U/L (15-37) Alanine Aminotransferase (ALT/SGPT) 24 U/L (16-63) Alkaline Phosphatase 70 U/L (46-116) Total Protein 7.2 g/dL (6.4-8.2) Albumin 2.9 g/dL (3.4-5.0) Albumin/Globulin Ratio 0.7 (1.0-1.7) Test 11/19/21 11:05 Heparin Anti-Xa Act, Unfractionated 0.37 IU/mL (0.30-0.70) Laboratory Tests Test 11/18/21 13:52 11/18/21 21:02 11/19/21 04:55 11/19/21 07:35 Troponin I High Sensitivity 12301 ng/L (4-75) Heparin Anti-Xa Act, Unfractionated 0.13 IU/mL (0.30-0.70) 0.37 IU/mL (0.30-0.70) White Blood Count 5.5 x10^3/uL (4.0-11.0) Red Blood Count 3.58 x10^6/uL (4.30-5.70) Hemoglobin 9.5 g/dL (13.0-17.5) Hematocrit 29.0 % (39.0-53.0) Mean Corpuscular Volume 81 fL (79-100) Mean Corpuscular Hemoglobin 27 pg (25-35) Mean Corpuscular Hemoglobin Concent 33 g/dL (31-37) Red Cell Distribution Width 18.9 % (11.5-14.5) Platelet Count 211 x10^3/uL (140-400) Neutrophils (%) (Auto) 62 % (31-73) Lymphocytes (%) (Auto) 23 % (24-48) Monocytes (%) (Auto) 13 % (0-9) Eosinophils (%) (Auto) 2 % (0-3) Basophils (%) (Auto) 0 % (0-3) Neutrophils # (Auto) 3.4 x10^3/uL (1.8-7.7) Lymphocytes # (Auto) 1.2 x10^3/uL (1.0-4.8) Monocytes # (Auto) 0.7 x10^3/uL (0.0-1.1) Eosinophils # (Auto) 0.1 x10^3/uL (0.0-0.7) Basophils # (Auto) 0.0 x10^3/uL (0.0-0.2) Sodium Level 135 mmol/L (136-145) Potassium Level 4.4 mmol/L (3.5-5.1) Chloride Level 99 mmol/L (98-107) Carbon Dioxide Level 30 mmol/L (21-32) Anion Gap 6 (6-14) Blood Urea Nitrogen 25 mg/dL (8-26) Creatinine 5.6 mg/dL (0.7-1.3) Estimated GFR (Cockcroft-Gault) 12.4 BUN/Creatinine Ratio 4 (6-20) Glucose Level 75 mg/dL (70-99) Calcium Level 8.1 mg/dL (8.5-10.1) Magnesium Level 2.2 mg/dL (1.8-2.4) Total Bilirubin 0.4 mg/dL (0.2-1.0) Aspartate Amino Transf (AST/SGOT) 44 U/L (15-37) Alanine Aminotransferase (ALT/SGPT) 24 U/L (16-63) Alkaline Phosphatase 70 U/L (46-116) Total Protein 7.2 g/dL (6.4-8.2) Albumin 2.9 g/dL (3.4-5.0) Albumin/Globulin Ratio 0.7 (1.0-1.7) Test 11/19/21 11:05 Heparin Anti-Xa Act, Unfractionated 0.37 IU/mL (0.30-0.70) Medications Active Scripts Medications Dose Route/Sig Max Daily Dose Days Date Category Acetaminophen 500 Mg Tablet 2 Tab PO PRN Q4-6HRS PRN 15 11/18/21 Reported Senna Laxative (Sennosides) 8.6 Mg Tablet 2 Tab PO PRN BID PRN 30 11/18/21 Reported Atorvastatin Calcium 40 Mg Tablet 1 Tab PO QHS 11/18/21 Reported Diclofenac Sodium 150 Ml Drops 1 Marilynn TP QID 30 11/18/21 Reported Lisinopril 20 Mg Tablet 20 Mg PO DAILY 11/18/21 Reported Ferrous Sulfate 220 Mg/5 Ml Elixir 325 Mg PO DAILY 11/18/21 Reported Toprol XL (Metoprolol Succinate) 50 Mg Tab.er.24h 50 Mg PO DAILY 11/18/21 Reported Furosemide 20 Mg Tablet 1 Tab PO DAILY 11/18/21 Reported Children's Aspirin (Aspirin) 81 Mg Tab.chew 1 Tab PO DAILY 30 11/18/21 Reported Nifedipine Er (Nifedipine) 60 Mg Tablet.er 1 Tab PO DAILY 11/18/21 Reported Impression . IMPRESSION: 1. Acute hypoxemic respiratory failure secondary to acute pulmonary edema. 2. Acute pulmonary edema secondary to malignant hypertension. 3. Coronary artery disease, status post coronary artery bypass grafting. 4. Uncontrolled hypertension related to cocaine use. 5. Non-ST segment elevation myocardial infarction. 6. Status post right nephrectomy approximately 2 weeks ago due to what the patient thinks his cancer. 7. End-stage renal disease. 8. Tobacco use/chronic obstructive pulmonary disease. 9. Secondary pulmonary hypertension 10. Acute pulmonary edema secondary to diastolic dysfunction Plan . Updated 11/19 Patient respiratory status remains tenuous Continue as needed BiPAP Nasal cannula oxygen throughout the day as needed Echocardiogram obtained pulmonary artery pressure of 46 ejection fraction normal Blood pressure is better controlled Patient instructed on the importance of discontinue tobacco and cocaine use White count has come down Hemoglobin hematocrit stable repeat chest x-ray in the morning Total critical care time of 32 minutes 422 PLAN: 1. The patient is doing better off of noninvasive ventilation. Continue nasal cannula oxygen. 2. No need for antibiotics. Chest x-ray is compatible with pulmonary edema, not infectious. 3. Leukocytosis is likewise secondary to reactive process. 4. Follow Cardiology input. 5. Control blood pressure. 6. Emergent hemodialysis. 7. The patient is instructed on the importance of discontinuing cocaine use and tobacco use. I do appreciate the privilege in sharing in the patient's care. Total cumulative critical care 45 minutes. DEAN CASTRO MD Nov 19, 2021 13:29
--- NOTE | 2021-11-19 14:27 | PDOC ---
PROGRESS NOTES Date of Service DATE: 11/19/21 TIME: 14:25 Subjective Subjective Patient seen and examined He reports feeling better today with no chest pain. Objective Objective Vital Signs Date Time Temp Pulse Resp B/P (MAP) Pulse Ox O2 Delivery O2 Flow Rate FiO2 11/19/21 09:03 77 163/77 11/19/21 08:00 16 98 Nasal Cannula 5.0 11/19/21 07:00 98.1 98.1 Intake and Output 11/19/21 07:00 Intake Total 835 ml Output Total 500 ml Balance 335 ml Intake Oral 835 ml Output Urine Total 425 ml Emesis 75 ml Physical Exam Abdomen: Normal bowel sounds Heart: Regular rate General: mild distress Lungs: Other (Mildly decreased breath sounds) Assessment Assessment Problems Medical Problems: (1) Acute exacerbation of congestive heart failure Status: Acute (2) Acute hypoxemic respiratory failure Status: Acute (3) Cocaine abuse Status: Acute (4) Flash pulmonary edema Status: Acute (5) Hypertensive emergency Status: Acute 1. Acute on chronic CHF with possible diastolic dysfunction: Improved today. Echo with an ejection fraction of 50 to 55%. 2. Malignant HTN. Also improved. 3. NSTEMI: Suspect demand mediated type 2 with above culprits[place] [address]. History of bypass surgery. Continue present m edications. Possible catheterization Sunday. 4. S/P Right nephrectomy: about 2 weeks ago due to CA 5. ESRD 6. DM2 7. Cocaine use: used it the day prior to admission 8. Tobacco abuse Comment Review of Relevant I have reviewed the following items renaldo (where applicable) has been applied. Labs Laboratory Tests Test 11/18/21 01:00 11/18/21 01:58 11/18/21 07:30 11/18/21 09:05 White Blood Count 13.2 x10^3/uL (4.0-11.0) Red Blood Count 4.00 x10^6/uL (4.30-5.70) Hemoglobin 10.5 g/dL (13.0-17.5) Hematocrit 32.6 % (39.0-53.0) Mean Corpuscular Volume 81 fL (79-100) Mean Corpuscular Hemoglobin 26 pg (25-35) Mean Corpuscular Hemoglobin Concent 32 g/dL (31-37) Red Cell Distribution Width 19.3 % (11.5-14.5) Platelet Count 307 x10^3/uL (140-400) Neutrophils (%) (Auto) 78 % (31-73) Lymphocytes (%) (Auto) 13 % (24-48) Monocytes (%) (Auto) 7 % (0-9) Eosinophils (%) (Auto) 1 % (0-3) Basophils (%) (Auto) 1 % (0-3) Neutrophils # (Auto) 10.4 x10^3/uL (1.8-7.7) Lymphocytes # (Auto) 1.8 x10^3/uL (1.0-4.8) Monocytes # (Auto) 0.9 x10^3/uL (0.0-1.1) Eosinophils # (Auto) 0.1 x10^3/uL (0.0-0.7) Basophils # (Auto) 0.1 x10^3/uL (0.0-0.2) Prothrombin Time 13.2 SEC (11.7-14.0) Prothromb Time International Ratio 1.0 (0.8-1.1) Activated Partial Thromboplast Time 28 SEC (24-38) Sodium Level 137 mmol/L (136-145) Potassium Level 4.5 mmol/L (3.5-5.1) Chloride Level 97 mmol/L (98-107) Carbon Dioxide Level 26 mmol/L (21-32) Anion Gap 14 (6-14) Blood Urea Nitrogen 31 mg/dL (8-26) Creatinine 6.3 mg/dL (0.7-1.3) Estimated GFR (Cockcroft-Gault) 10.8 BUN/Creatinine Ratio 5 (6-20) Glucose Level 151 mg/dL (70-99) Lactic Acid Level 1.4 mmol/L (0.4-2.0) Calcium Level 8.4 mg/dL (8.5-10.1) Total Bilirubin 0.3 mg/dL (0.2-1.0) Aspartate Amino Transf (AST/SGOT) 34 U/L (15-37) Alanine Aminotransferase (ALT/SGPT) 33 U/L (16-63) Alkaline Phosphatase 86 U/L (46-116) Troponin I High Sensitivity 107 ng/L (4-75) 7482 ng/L (4-75) DT-Pzt-F-Type Natriuretic Peptide 93474 pg/mL (0-124) Total Protein 8.1 g/dL (6.4-8.2) Albumin 3.5 g/dL (3.4-5.0) Albumin/Globulin Ratio 0.8 (1.0-1.7) Ethyl Alcohol Level < 10 mg/dL (0-10) O2 Saturation 100 % (92-99) Arterial Blood pH 7.40 (7.35-7.45) Arterial Blood pCO2 at Patient Temp 39 mmHg (35-46) Arterial Blood pO2 at Patient Temp 184 mmHg (65-108) Arterial Blood HCO3 23 mmol/L (21-28) Arterial Blood Base Excess -1 mmol/L (-3-3) FiO2 60 Urine Opiates Screen Neg (NEG) Urine Methadone Screen Neg (NEG) Urine Barbiturates Neg (NEG) Urine Phencyclidine Screen Neg (NEG) Urine Amphetamine/Methamphetamine Neg (NEG) Urine Benzodiazepines Screen Neg (NEG) Urine Cocaine Screen Pos (NEG) Urine Cannabinoids Screen Neg (NEG) Urine Ethyl Alcohol Neg (NEG) Triglycerides Level 41 mg/dL (0-150) Cholesterol Level 111 mg/dL (0-200) LDL Cholesterol, Calculated 42 mg/dL (0-100) VLDL Cholesterol, Calculated 8 mg/dL (0-40) Non-HDL Cholesterol Calculated 50 mg/dL (0-129) HDL Cholesterol 61 mg/dL (40-60) Cholesterol/HDL Ratio 1.8 Thyroid Stimulating Hormone (TSH) 1.981 uIU/mL (0.358-3.74) Test 11/18/21 13:52 11/18/21 21:02 11/19/21 04:55 11/19/21 07:35 Troponin I High Sensitivity 44603 ng/L (4-75) Heparin Anti-Xa Act, Unfractionated 0.13 IU/mL (0.30-0.70) 0.37 IU/mL (0.30-0.70) White Blood Count 5.5 x10^3/uL (4.0-11.0) Red Blood Count 3.58 x10^6/uL (4.30-5.70) Hemoglobin 9.5 g/dL (13.0-17.5) Hematocrit 29.0 % (39.0-53.0) Mean Corpuscular Volume 81 fL (79-100) Mean Corpuscular Hemoglobin 27 pg (25-35) Mean Corpuscular Hemoglobin Concent 33 g/dL (31-37) Red Cell Distribution Width 18.9 % (11.5-14.5) Platelet Count 211 x10^3/uL (140-400) Neutrophils (%) (Auto) 62 % (31-73) Lymphocytes (%) (Auto) 23 % (24-48) Monocytes (%) (Auto) 13 % (0-9) Eosinophils (%) (Auto) 2 % (0-3) Basophils (%) (Auto) 0 % (0-3) Neutrophils # (Auto) 3.4 x10^3/uL (1.8-7.7) Lymphocytes # (Auto) 1.2 x10^3/uL (1.0-4.8) Monocytes # (Auto) 0.7 x10^3/uL (0.0-1.1) Eosinophils # (Auto) 0.1 x10^3/uL (0.0-0.7) Basophils # (Auto) 0.0 x10^3/uL (0.0-0.2) Sodium Level 135 mmol/L (136-145) Potassium Level 4.4 mmol/L (3.5-5.1) Chloride Level 99 mmol/L (98-107) Carbon Dioxide Level 30 mmol/L (21-32) Anion Gap 6 (6-14) Blood Urea Nitrogen 25 mg/dL (8-26) Creatinine 5.6 mg/dL (0.7-1.3) Estimated GFR (Cockcroft-Gault) 12.4 BUN/Creatinine Ratio 4 (6-20) Glucose Level 75 mg/dL (70-99) Calcium Level 8.1 mg/dL (8.5-10.1) Magnesium Level 2.2 mg/dL (1.8-2.4) Total Bilirubin 0.4 mg/dL (0.2-1.0) Aspartate Amino Transf (AST/SGOT) 44 U/L (15-37) Alanine Aminotransferase (ALT/SGPT) 24 U/L (16-63) Alkaline Phosphatase 70 U/L (46-116) Total Protein 7.2 g/dL (6.4-8.2) Albumin 2.9 g/dL (3.4-5.0) Albumin/Globulin Ratio 0.7 (1.0-1.7) Test 11/19/21 11:05 Heparin Anti-Xa Act, Unfractionated 0.37 IU/mL (0.30-0.70) Laboratory Tests Test 11/18/21 21:02 11/19/21 04:55 11/19/21 07:35 11/19/21 11:05 Heparin Anti-Xa Act, Unfractionated 0.13 IU/mL (0.30-0.70) 0.37 IU/mL (0.30-0.70) 0.37 IU/mL (0.30-0.70) White Blood Count 5.5 x10^3/uL (4.0-11.0) Red Blood Count 3.58 x10^6/uL (4.30-5.70) Hemoglobin 9.5 g/dL (13.0-17.5) Hematocrit 29.0 % (39.0-53.0) Mean Corpuscular Volume 81 fL (79-100) Mean Corpuscular Hemoglobin 27 pg (25-35) Mean Corpuscular Hemoglobin Concent 33 g/dL (31-37) Red Cell Distribution Width 18.9 % (11.5-14.5) Platelet Count 211 x10^3/uL (140-400) Neutrophils (%) (Auto) 62 % (31-73) Lymphocytes (%) (Auto) 23 % (24-48) Monocytes (%) (Auto) 13 % (0-9) Eosinophils (%) (Auto) 2 % (0-3) Basophils (%) (Auto) 0 % (0-3) Neutrophils # (Auto) 3.4 x10^3/uL (1.8-7.7) Lymphocytes # (Auto) 1.2 x10^3/uL (1.0-4.8) Monocytes # (Auto) 0.7 x10^3/uL (0.0-1.1) Eosinophils # (Auto) 0.1 x10^3/uL (0.0-0.7) Basophils # (Auto) 0.0 x10^3/uL (0.0-0.2) Sodium Level 135 mmol/L (136-145) Potassium Level 4.4 mmol/L (3.5-5.1) Chloride Level 99 mmol/L (98-107) Carbon Dioxide Level 30 mmol/L (21-32) Anion Gap 6 (6-14) Blood Urea Nitrogen 25 mg/dL (8-26) Creatinine 5.6 mg/dL (0.7-1.3) Estimated GFR (Cockcroft-Gault) 12.4 BUN/Creatinine Ratio 4 (6-20) Glucose Level 75 mg/dL (70-99) Calcium Level 8.1 mg/dL (8.5-10.1) Magnesium Level 2.2 mg/dL (1.8-2.4) Total Bilirubin 0.4 mg/dL (0.2-1.0) Aspartate Amino Transf (AST/SGOT) 44 U/L (15-37) Alanine Aminotransferase (ALT/SGPT) 24 U/L (16-63) Alkaline Phosphatase 70 U/L (46-116) Total Protein 7.2 g/dL (6.4-8.2) Albumin 2.9 g/dL (3.4-5.0) Albumin/Globulin Ratio 0.7 (1.0-1.7) Microbiology 11/18/21 Blood Culture - Preliminary, Resulted NO GROWTH AFTER 1 DAY Medications Current Medications Nitroglycerin/ Dextrose 250 ml @ 1.5 mls/hr 1X ONCE IV Last administered on 11/18/21at 01:20; Start 11/18/21 at 01:30; Stop 11/18/21 at 11:30; Status DC Furosemide (Lasix) 40 mg 1X ONCE IVP Last administered on 11/18/21at 03:26; Start 11/18/21 at 02:30; Stop 11/18/21 at 02:31; Status DC Ondansetron HCl (Zofran) 4 mg PRN Q8HRS PRN IVP NAUSEA/VOMITING 1ST CHOICE; Start 11/18/21 at 03:15; Stop 11/19/21 at 03:14; Status DC Acetaminophen (Tylenol) 1,000 mg 1X ONCE PO ; Start 11/18/21 at 03:30; Stop 11/18/21 at 03:31; Status DC Iohexol (Omnipaque 350 Mg/ml) 100 ml 1X ONCE IV Last administered on 11/18/21at 03:54; Start 11/18/21 at 04:00; Stop 11/18/21 at 04:01; Status DC Info (CONTRAST GIVEN -- Rx MONITORING) 1 each PRN DAILY PRN MC SEE COMMENTS; Start 11/18/21 at 03:45; Stop 11/20/21 at 03:44 Nitroglycerin/ Dextrose 250 ml @ 1.5 mls/hr CONT PRN IV SEE I/O RECORD Last administered on 11/18/21at 06:14; Start 11/18/21 at 06:15 Fentanyl Citrate (Fentanyl 2ml Vial) 50 mcg PRN Q2HRS PRN IV PAIN Last administered on 11/19/21at 06:21; Start 11/18/21 at 07:00 Amlodipine Besylate (Norvasc) 10 mg DAILY PO ; Start 11/19/21 at 09:00; Stop 11/18/21 at 10:59; Status DC Amlodipine Besylate (Norvasc) 10 mg 1X ONCE PO Last administered on 11/18/21at 09:47; Start 11/18/21 at 10:00; Stop 11/18/21 at 10:01; Status DC Hydralazine HCl (Apresoline) 50 mg TID PO Last administered on 11/19/21at 09:02; Start 11/18/21 at 10:00 Isosorbide Mononitrate (Imdur) 30 mg DAILY PO Last administered on 11/19/21 09:03; Start 11/18/21 at 10:00 Aspirin (Ecotrin) 81 mg [id number] PO Last administered on 11/19/21at 09:02; Start 11/18/21 at 10:00 Lisinopril (Prinivil) 20 mg DAILY PO Last administered on 11/19/21at 09:02; Start 11/18/21 at 10:00 Amlodipine Besylate (Norvasc) 10 mg BID PO Last administered on 11/18/21at 21:24; Start 11/18/21 at 21:00 Hydralazine HCl (Apresoline Inj) 10 mg PRN Q4HRS PRN IVP ELEVATED BP, SEE COMMENTS Last administered on 11/18/21at 13:35; Start 11/18/21 at 13:15 Heparin Sodium/ Dextrose 250 ml @ 10 mls/hr CONT PRN IV PER PROTOCOL Last administered on 11/19/21at 10:49; Start 11/18/21 at 14:00 Heparin Sodium (Porcine) (Heparin Sodium) 2,250 unit PRN Q6HRS PRN IV FOR UFH LEVEL LESS THAN 0.2 Last administered on 11/18/21at 21:47; Start 11/18/21 at 14:00 Sodium Chloride 1,000 ml @ 1,000 mls/hr Q1H PRN IV hypotension; Start 11/18/21 at 16:15; Stop 11/18/21 at 22:14; Status DC Albumin Human 200 ml @ 200 mls/hr 1X PRN PRN IV Hypotension; Start 11/18/21 at 16:15; Stop 11/18/21 at 22:14; Status DC Sodium Chloride (Normal Saline Flush) 10 ml 1X PRN PRN IV AP catheter pack; Start 11/18/21 at 16:15; Stop 11/19/21 at 16:14 Sodium Chloride (Normal Saline Flush) 10 ml 1X PRN PRN IV [employer] catheter pack; Start 11/18/21 at 16:15; Stop 11/19/21 at 16:14 Info (PHARMACY MONITORING -- do not chart) 1 each PRN DAILY PRN MC SEE COMMENTS; Start 11/18/21 at 16:15; Stop 11/18/21 at 16:12; Status DC Info (PHARMACY MONITORING -- do not chart) 1 each PRN DAILY PRN MC SEE COMMENTS; Start 11/18/21 at 16:15 Ondansetron HCl (Zofran) 4 mg PRN Q8HRS PRN IVP NAUSEA/VOMITING, 1ST CHOICE; Start 11/19/21 at 10:30 Prochlorperazine Edisylate (Compazine) 10 mg PRN Q6HRS PRN IV NAUSEA/VOMITING, 2ND CHOICE; Start 11/19/21 at 10:30 Prochlorperazine Edisylate (Compazine) 10 mg PRN Q6HRS PRN IV NAUSEA/VOMITING; Start 11/19/21 at 10:45 Epoetin Riki (PROCRIT for DIALYSIS PTS) 10,000 unit 3X/WEEK ONCE SQ ; Start 11/21/21 at 09:00; Stop 11/21/21 at 09:01 Active Scripts Active Reported Acetaminophen 500 Mg Tablet 2 Tab PO PRN Q4-6HRS PRN 15 Days Senna Laxative (Sennosides) 8.6 Mg Tablet 2 Tab PO PRN BID PRN 30 Days Atorvastatin Calcium 40 Mg Tablet 1 Tab PO QHS Diclofenac Sodium 150 Ml Drops 1 Marilynn TP QID 30 Days Lisinopril 20 Mg Tablet 20 Mg PO DAILY Ferrous Sulfate 220 Mg/5 Ml Elixir 325 Mg PO DAILY Toprol XL (Metoprolol Succinate) 50 Mg Tab.er.24h 50 Mg PO DAILY Furosemide 20 Mg Tablet 1 Tab PO DAILY Children's Aspirin (Aspirin) 81 Mg Tab.chew 1 Tab PO DAILY 30 Days Nifedipine Er (Nifedipine) 60 Mg Tablet.er 1 Tab PO DAILY Vitals/I & O Vital Sign - Last 24 Hours 11/18/21 11/18/21 11/18/21 11/18/21 15:00 15:27 16:00 17:00 Temp 98.2 98.2 Pulse 80 78 81 Resp 25 24 B/P (MAP) 174/87 (116) 173/91 (118) 183/83 (116) Pulse Ox 100 100 99 O2 Delivery Nasal Cannula Nasal Cannula Nasal Cannula Nasal Cannula O2 Flow Rate 4.0 4.0 4.0 4.0 11/18/21 11/18/21 11/18/21 11/18/21 17:57 19:00 20:00 20:00 Temp 98.8 98.8 Pulse 73 77 74 Resp 24 22 11 B/P (MAP) 174/90 (118) 171/91 (117) 153/73 (99) Pulse Ox 98 100 100 O2 Delivery Nasal Cannula Nasal Cannula Nasal Cannula Nasal Cannula O2 Flow Rate 5.0 5.0 5.0 4.0 11/18/21 11/18/21 11/18/21 11/18/21 21:00 21:23 21:23 21:24 Pulse 84 94 94 Resp 11 30 B/P (MAP) 156/73 (100) 156/73 156/73 Pulse Ox 99 O2 Delivery Nasal Cannula O2 Flow Rate 5.0 11/18/21 11/18/21 11/18/21 11/18/21 21:53 22:00 23:00 23:59 Pulse 80 76 Resp 11 11 11 B/P (MAP) 162/78 (106) 150/68 (95) Pulse Ox 99 100 O2 Delivery Nasal Cannula Nasal Cannula Nasal Cannula O2 Flow Rate 5.0 5.0 4.0 11/19/21 11/19/21 11/19/21 11/19/21 00:00 01:00 02:00 03:00 Temp 98.6 98.6 Pulse 72 70 72 68 Resp 11 11 10 15 B/P (MAP) 135/67 (89) 139/67 (91) 157/71 (99) 147/67 (93) Pulse Ox 100 100 100 100 O2 Delivery Nasal Cannula Nasal Cannula Nasal Cannula Nasal Cannula O2 Flow Rate 5.0 5.0 5.0 5.0 11/19/21 11/19/21 11/19/21 11/19/21 04:00 04:00 05:00 06:00 Temp 98.8 98.8 Pulse 76 80 76 Resp 12 13 14 B/P (MAP) 175/84 (114) 169/80 (109) 154/78 (103) Pulse Ox 98 95 95 O2 Delivery Nasal Cannula Nasal Cannula Nasal Cannula Nasal Cannula O2 Flow Rate 5.0 4.0 5.0 5.0 11/19/21 11/19/21 11/19/21 11/19/21 06:21 06:51 07:00 08:00 Temp 98.1 98.1 Pulse 77 Resp 38 16 B/P (MAP) 100/76 (84) Pulse Ox 98 99 O2 Delivery Nasal Cannula Nasal Cannula Nasal Cannula O2 Flow Rate 5.0 5.0 5.0 11/19/21 11/19/21 11/19/21 11/19/21 08:00 09:00 09:02 09:02 Pulse 75 77 77 77 Resp 16 B/P (MAP) 167/80 (109) 163/77 163/77 163/77 Pulse Ox 98 O2 Delivery Nasal Cannula O2 Flow Rate 5.0 11/19/21 09:03 Pulse 77 B/P (MAP) 163/77 Intake and Output 11/18/21 11/18/21 11/19/21 15:00 23:00 07:00 Intake Total 510 ml 175 ml 150 ml Output Total 225 ml 0 ml 275 ml Balance 285 ml 175 ml -125 ml Justifications for Admission Other Justification CAMELIA HOLDEN MD Nov 19, 2021 14:27
[2021-11-19] MEDS: ACETAMINOPHEN 325 MG TABLET. PO PRN (16:24)
[2021-11-20] VITALS (7 sets, daily range): BP systolic 154–184; BP diastolic 73–90
[2021-11-20] MEDS: ACETAMINOPHEN 325 MG TABLET. PO PRN ×2 (00:39→21:50)
[2021-11-20] MEDS: hydrALAZINE 20 MG/ML VIAL. IVP PRN ×2 (04:31→11:17)
[2021-11-20] MEDS: HEPARIN 25,000UTS/250ML PREMIX 250 ML IV PRN (07:31)
[2021-11-20 08:13] LABS: ALBUMIN 2.9 g/dL (3.4-5.0); ALBUMIN/GLOBULIN RATIO 0.7 (1.0-1.7); BASO % 1 % (0-3); CALCIUM 8.4 mg/dL (8.5-10.1); CREATININE 7.5 mg/dL (0.7-1.3); EOS # 0.2 x10^3/uL (0.0-0.7); EOS % 3 % (0-3); GFR 8.8; HEMATOCRIT 28.7 % (39.0-53.0); HEMOGLOBIN 9.5 g/dL (13.0-17.5); LYMPH # 1.5 x10^3/uL (1.0-4.8); LYMPH % 29 % (24-48); MEAN CORPUSCULAR HEMOGLOBIN 27 pg (25-35); MEAN CORPUSCULAR HGB CONC 33 g/dL (31-37); MEAN CORPUSCULAR VOLUME 81 fL (79-100); MONO # 0.6 x10^3/uL (0.0-1.1); MONO % 12 % (0-9); NEUT # 2.8 x10^3/uL (1.8-7.7); NEUT % 55 % (31-73); PLATELET COUNT 222 x10^3/uL (140-400); POTASSIUM 4.1 mmol/L (3.5-5.1); RED BLOOD COUNT 3.55 x10^6/uL (4.30-5.70); RED CELL DISTRIBUTION WIDTH 18.8 % (11.5-14.5); TOTAL BILIRUBIN 0.3 mg/dL (0.2-1.0); TOTAL PROTEIN 7.2 g/dL (6.4-8.2); WHITE BLOOD COUNT 5.2 x10^3/uL (4.0-11.0)
[2021-11-20] MEDS ORDERED: MAGNESIUM SULFATE 2GM 50 ML IV PRN (08:15)
[2021-11-20] MEDS: ASPIRIN ENTERIC COATED 81 MG TABLET.DR. PO SCH (09:07)
[2021-11-20] MEDS: LISINOPRIL 20 MG TABLET PO SCH (09:09)
[2021-11-20] MEDS: ISOSORBIDE MONONITRATE ER 30 MG TAB.ER.24H PO SCH (09:09)
[2021-11-20] MEDS ORDERED: MAGNESIUM HYDROXIDE 2,400 MG/30 ML ORAL.SUSP. PO ONE (11:45)
--- NOTE | 2021-11-20 11:56 | PDOC ---
PROGRESS NOTES Date of Service: DATE: 11/20/21 TIME: 11:53 Subjective Subjective feels cold Objective Objective Vital Signs Date Time Temp Pulse Resp B/P (MAP) Pulse Ox O2 Delivery O2 Flow Rate FiO2 11/20/21 11:17 77 182/82 11/20/21 10:32 98.0 18 98 Room Air 98.0 11/19/21 08:00 5.0 Intake and Output 11/20/21 07:00 Intake Total 1924.3 ml Output Total 500 ml Balance 1424.3 ml Intake Oral 1450 ml IV Total 474.3 ml Output Urine Total 500 ml # Voids 100 # Bowel Movements 1 Physical Exam Abdomen: Normal bowel sounds Heart: Regular rate Extremities: No cyanosis, No edema General: mild distress HEENT: Atraumatic, Mucous membr. moist/pink Lungs: Other (Mildly decreased breath sounds) MUSCULOSKELETAL: Osteoarthritic changes both hands Neuro: Normal speech, Sensation intact Psych/Mental Status: Mental status NL, Mood NL Skin: No breakdown, No significant lesion Diagnosis Problem List Problems Medical Problems: (1) Acute exacerbation of congestive heart failure Status: Acute (2) Acute hypoxemic respiratory failure Status: Acute (3) Cocaine abuse Status: Acute (4) Flash pulmonary edema Status: Acute (5) Hypertensive emergency Status: Acute Assessment Assessment IMP: 1. Acute pulmonary edema and [id number] congestive heart failure, likely because of hypertensive crisis, likely induced by cocaine abuse. 2. End-stage renal disease, on hemodialysis. 3. Recent renal cell carcinoma, status post right nephrectomy. 4. Coronary artery disease, status post coronary artery bypass graft. 5. Acute pulmonary edema. 6. Leukocytosis. Chest x-ray shows infiltrates. Monitor for pneumonia. 7. Diabetes mellitus type 2, monitor blood sugar. 8. Anemia. 9. Physical deconditioning. 10. Cocaine abuse. 11. Acute NSTEMI. PLAN:d/c heparin drip if ok with cardiology. 1. Acute pulmonary edema, improving. The patient is moved out of ICU. Consult Dr. Sanchez for cardiology evaluation and management. Echocardiogram 11/18/21 good LVF 2. End-stage renal disease, on hemodialysis. Consult Dr. Bullock for nephrology evaluation and management. Continue hemodialysis Sunday, Sunday, Sunday. 3. Cocaine abuse. The patient is strongly advised to avoid illicit drugs. 4. Diabetes mellitus. Monitor. 5. Hypertensive crisis, improved. Resume home medications. 6. Acute NSTEMI- likely due to demand ischemia. IV Heparin drip. 6. Vomiting. Compazine prn. For details, please refer to the orders. Consult Dr. Kennedy for pulmonary evaluation and management, Dr. Bullock for nephrology evaluation and management. Leukocytosis resolved. Likely reactive. Plan Plan of Care Problems Medical Problems: (1) Acute exacerbation of congestive heart failure Status: Acute (2) Acute hypoxemic respiratory failure Status: Acute (3) Cocaine abuse Status: Acute (4) Flash pulmonary edema Status: Acute (5) Hypertensive emergency Status: Acute Comment Review of Relevant I have reviewed the following items renaldo (where applicable) has been applied. Labs Laboratory Tests Test 11/20/21 07:30 White Blood Count 5.2 x10^3/uL (4.0-11.0) Red Blood Count 3.55 x10^6/uL (4.30-5.70) Hemoglobin 9.5 g/dL (13.0-17.5) Hematocrit 28.7 % (39.0-53.0) Mean Corpuscular Volume 81 fL (79-100) Mean Corpuscular Hemoglobin 27 pg (25-35) Mean Corpuscular Hemoglobin Concent 33 g/dL (31-37) Red Cell Distribution Width 18.8 % (11.5-14.5) Platelet Count 222 x10^3/uL (140-400) Neutrophils (%) (Auto) 55 % (31-73) Lymphocytes (%) (Auto) 29 % (24-48) Monocytes (%) (Auto) 12 % (0-9) Eosinophils (%) (Auto) 3 % (0-3) Basophils (%) (Auto) 1 % (0-3) Neutrophils # (Auto) 2.8 x10^3/uL (1.8-7.7) Lymphocytes # (Auto) 1.5 x10^3/uL (1.0-4.8) Monocytes # (Auto) 0.6 x10^3/uL (0.0-1.1) Eosinophils # (Auto) 0.2 x10^3/uL (0.0-0.7) Basophils # (Auto) 0.0 x10^3/uL (0.0-0.2) Heparin Anti-Xa Act, Unfractionated 0.28 IU/mL (0.30-0.70) Sodium Level 135 mmol/L (136-145) Potassium Level 4.1 mmol/L (3.5-5.1) Chloride Level 97 mmol/L (98-107) Carbon Dioxide Level 27 mmol/L (21-32) Anion Gap 11 (6-14) Blood Urea Nitrogen 32 mg/dL (8-26) Creatinine 7.5 mg/dL (0.7-1.3) Estimated GFR (Cockcroft-Gault) 8.8 BUN/Creatinine Ratio 4 (6-20) Glucose Level 76 mg/dL (70-99) Calcium Level 8.4 mg/dL (8.5-10.1) Total Bilirubin 0.3 mg/dL (0.2-1.0) Aspartate Amino Transf (AST/SGOT) 29 U/L (15-37) Alanine Aminotransferase (ALT/SGPT) 17 U/L (16-63) Alkaline Phosphatase 66 U/L (46-116) Total Protein 7.2 g/dL (6.4-8.2) Albumin 2.9 g/dL (3.4-5.0) Albumin/Globulin Ratio 0.7 (1.0-1.7) Microbiology 11/18/21 Blood Culture - Preliminary, Resulted NO GROWTH AFTER 2 DAYS Medications Current Medications Acetaminophen (Tylenol) 650 mg PRN Q6HRS PRN PO MILD PAIN / TEMP > 100.3'F Last administered on 11/20/21at 00:39; Start 11/19/21 at 16:30 Epoetin Riki (PROCRIT for DIALYSIS PTS) 10,000 unit 3X/WEEK ONCE SQ ; Start 11/21/21 at 09:00; Stop 11/21/21 at 09:01 Magnesium Hydroxide (Milk Of Magnesia) 2,400 mg 1X ONCE PO ; Start 11/20/21 at 11:45; Stop 11/20/21 at 11:47; Status DC Magnesium Sulfate 50 ml @ 25 mls/hr PRN DAILY PRN IV for Mag < 1.7 on am labs; Start 11/20/21 at 08:15 Vitals/I & O Vital Sign - Last 24 Hours 11/19/21 11/19/21 11/19/21 11/19/21 12:00 14:41 16:00 20:00 Temp 98.7 98.3 97.9 98.7 98.3 97.9 Pulse 76 77 87 86 Resp 16 16 16 B/P (MAP) 151/71 (97) 151/71 161/83 (109) 181/82 (115) Pulse Ox 99 O2 Delivery Room Air Room Air Room Air 11/19/21 11/19/21 11/19/21 11/20/21 20:00 20:36 20:37 00:00 Temp 98.1 98.1 Pulse 86 84 88 Resp 20 B/P (MAP) 181/82 181/82 176/90 (118) Pulse Ox 97 O2 Delivery Room Air Room Air 11/20/21 11/20/21 11/20/21 11/20/21 04:00 04:31 08:00 08:00 Temp 97.9 97.5 97.9 97.5 Pulse 82 85 86 Resp 20 19 B/P (MAP) 184/82 (116) 198/96 169/80 (109) Pulse Ox 92 98 O2 Delivery Room Air Room Air Room Air 11/20/21 11/20/21 11/20/21 11/20/21 09:08 09:09 09:09 09:10 Pulse 86 86 86 86 B/P (MAP) 169/80 169/80 169/80 169/80 11/20/21 11/20/21 10:32 11:17 Temp 98.0 98.0 Pulse 77 77 Resp 18 B/P (MAP) 182/82 (115) 182/82 Pulse Ox 98 O2 Delivery Room Air Intake and Output 11/19/21 11/19/21 11/20/21 15:00 23:00 07:00 Intake Total 700 ml 750 ml 474.3 ml Output Total 150 ml 350 ml Balance 700 ml 600 ml 124.3 ml Justifications for Admission Other Justification MICHELE WAGGONER MD Nov 20, 2021 11:56
--- NOTE | 2021-11-20 14:35 | PDOC ---
PROGRESS NOTES Date of Service DATE: 11/20/21 TIME: 14:32 Subjective Subjective Patient seen and examined Objective Objective Vital Signs Date Time Temp Pulse Resp B/P (MAP) Pulse Ox O2 Delivery O2 Flow Rate FiO2 11/20/21 14:00 79 159/67 11/20/21 10:32 98.0 18 98 Room Air 98.0 11/19/21 08:00 5.0 Intake and Output 11/20/21 07:00 Intake Total 1924.3 ml Output Total 500 ml Balance 1424.3 ml Intake Oral 1450 ml IV Total 474.3 ml Output Urine Total 500 ml # Voids 100 # Bowel Movements 1 Physical Exam Abdomen: Normal bowel sounds Heart: Regular rate General: mild distress Lungs: Other (Mildly decreased breath sounds) Assessment Assessment Problems Medical Problems: (1) Acute exacerbation of congestive heart failure Status: Acute (2) Acute hypoxemic respiratory failure Status: Acute (3) Cocaine abuse Status: Acute (4) Flash pulmonary edema Status: Acute (5) Hypertensive emergency Status: Acute 1. Acute on chronic CHF with possible diastolic dysfunction: The patient continues to improve. Echocardiogram shows an ejection fraction of 50 to 55%. 2. Malignant HTN. Also improved. 3. NSTEMI: Suspect demand mediated type 2 with above culprits[place] [address]. History of bypass surgery. Discussed possible catheterization tomorrow. Risks and benefits were explained. The patient has agreed to proceed. We will keep n.p.o. overnight pending probable catheterization in the morning. Hemodialysis probably tomorrow afternoon. 4. S/P Right nephrectomy: about 2 weeks ago due to CA 5. ESRD. Hemodialysis as per the renal service. 6. DM2 7. Cocaine use: used it the day prior to admission 8. Tobacco abuse Comment Review of Relevant I have reviewed the following items renaldo (where applicable) has been applied. Labs Laboratory Tests Test 11/18/21 21:02 11/19/21 04:55 11/19/21 07:35 11/19/21 11:05 Heparin Anti-Xa Act, Unfractionated 0.13 IU/mL (0.30-0.70) 0.37 IU/mL (0.30-0.70) 0.37 IU/mL (0.30-0.70) White Blood Count 5.5 x10^3/uL (4.0-11.0) Red Blood Count 3.58 x10^6/uL (4.30-5.70) Hemoglobin 9.5 g/dL (13.0-17.5) Hematocrit 29.0 % (39.0-53.0) Mean Corpuscular Volume 81 fL (79-100) Mean Corpuscular Hemoglobin 27 pg (25-35) Mean Corpuscular Hemoglobin Concent 33 g/dL (31-37) Red Cell Distribution Width 18.9 % (11.5-14.5) Platelet Count 211 x10^3/uL (140-400) Neutrophils (%) (Auto) 62 % (31-73) Lymphocytes (%) (Auto) 23 % (24-48) Monocytes (%) (Auto) 13 % (0-9) Eosinophils (%) (Auto) 2 % (0-3) Basophils (%) (Auto) 0 % (0-3) Neutrophils # (Auto) 3.4 x10^3/uL (1.8-7.7) Lymphocytes # (Auto) 1.2 x10^3/uL (1.0-4.8) Monocytes # (Auto) 0.7 x10^3/uL (0.0-1.1) Eosinophils # (Auto) 0.1 x10^3/uL (0.0-0.7) Basophils # (Auto) 0.0 x10^3/uL (0.0-0.2) Sodium Level 135 mmol/L (136-145) Potassium Level 4.4 mmol/L (3.5-5.1) Chloride Level 99 mmol/L (98-107) Carbon Dioxide Level 30 mmol/L (21-32) Anion Gap 6 (6-14) Blood Urea Nitrogen 25 mg/dL (8-26) Creatinine 5.6 mg/dL (0.7-1.3) Estimated GFR (Cockcroft-Gault) 12.4 BUN/Creatinine Ratio 4 (6-20) Glucose Level 75 mg/dL (70-99) Calcium Level 8.1 mg/dL (8.5-10.1) Magnesium Level 2.2 mg/dL (1.8-2.4) Total Bilirubin 0.4 mg/dL (0.2-1.0) Aspartate Amino Transf (AST/SGOT) 44 U/L (15-37) Alanine Aminotransferase (ALT/SGPT) 24 U/L (16-63) Alkaline Phosphatase 70 U/L (46-116) Total Protein 7.2 g/dL (6.4-8.2) Albumin 2.9 g/dL (3.4-5.0) Albumin/Globulin Ratio 0.7 (1.0-1.7) Test 11/20/21 07:30 White Blood Count 5.2 x10^3/uL (4.0-11.0) Red Blood Count 3.55 x10^6/uL (4.30-5.70) Hemoglobin 9.5 g/dL (13.0-17.5) Hematocrit 28.7 % (39.0-53.0) Mean Corpuscular Volume 81 fL (79-100) Mean Corpuscular Hemoglobin 27 pg (25-35) Mean Corpuscular Hemoglobin Concent 33 g/dL (31-37) Red Cell Distribution Width 18.8 % (11.5-14.5) Platelet Count 222 x10^3/uL (140-400) Neutrophils (%) (Auto) 55 % (31-73) Lymphocytes (%) (Auto) 29 % (24-48) Monocytes (%) (Auto) 12 % (0-9) Eosinophils (%) (Auto) 3 % (0-3) Basophils (%) (Auto) 1 % (0-3) Neutrophils # (Auto) 2.8 x10^3/uL (1.8-7.7) Lymphocytes # (Auto) 1.5 x10^3/uL (1.0-4.8) Monocytes # (Auto) 0.6 x10^3/uL (0.0-1.1) Eosinophils # (Auto) 0.2 x10^3/uL (0.0-0.7) Basophils # (Auto) 0.0 x10^3/uL (0.0-0.2) Heparin Anti-Xa Act, Unfractionated 0.28 IU/mL (0.30-0.70) Sodium Level 135 mmol/L (136-145) Potassium Level 4.1 mmol/L (3.5-5.1) Chloride Level 97 mmol/L (98-107) Carbon Dioxide Level 27 mmol/L (21-32) Anion Gap 11 (6-14) Blood Urea Nitrogen 32 mg/dL (8-26) Creatinine 7.5 mg/dL (0.7-1.3) Estimated GFR (Cockcroft-Gault) 8.8 BUN/Creatinine Ratio 4 (6-20) Glucose Level 76 mg/dL (70-99) Calcium Level 8.4 mg/dL (8.5-10.1) Total Bilirubin 0.3 mg/dL (0.2-1.0) Aspartate Amino Transf (AST/SGOT) 29 U/L (15-37) Alanine Aminotransferase (ALT/SGPT) 17 U/L (16-63) Alkaline Phosphatase 66 U/L (46-116) Total Protein 7.2 g/dL (6.4-8.2) Albumin 2.9 g/dL (3.4-5.0) Albumin/Globulin Ratio 0.7 (1.0-1.7) Laboratory Tests Test 11/20/21 07:30 White Blood Count 5.2 x10^3/uL (4.0-11.0) Red Blood Count 3.55 x10^6/uL (4.30-5.70) Hemoglobin 9.5 g/dL (13.0-17.5) Hematocrit 28.7 % (39.0-53.0) Mean Corpuscular Volume 81 fL (79-100) Mean Corpuscular Hemoglobin 27 pg (25-35) Mean Corpuscular Hemoglobin Concent 33 g/dL (31-37) Red Cell Distribution Width 18.8 % (11.5-14.5) Platelet Count 222 x10^3/uL (140-400) Neutrophils (%) (Auto) 55 % (31-73) Lymphocytes (%) (Auto) 29 % (24-48) Monocytes (%) (Auto) 12 % (0-9) Eosinophils (%) (Auto) 3 % (0-3) Basophils (%) (Auto) 1 % (0-3) Neutrophils # (Auto) 2.8 x10^3/uL (1.8-7.7) Lymphocytes # (Auto) 1.5 x10^3/uL (1.0-4.8) Monocytes # (Auto) 0.6 x10^3/uL (0.0-1.1) Eosinophils # (Auto) 0.2 x10^3/uL (0.0-0.7) Basophils # (Auto) 0.0 x10^3/uL (0.0-0.2) Heparin Anti-Xa Act, Unfractionated 0.28 IU/mL (0.30-0.70) Sodium Level 135 mmol/L (136-145) Potassium Level 4.1 mmol/L (3.5-5.1) Chloride Level 97 mmol/L (98-107) Carbon Dioxide Level 27 mmol/L (21-32) Anion Gap 11 (6-14) Blood Urea Nitrogen 32 mg/dL (8-26) Creatinine 7.5 mg/dL (0.7-1.3) Estimated GFR (Cockcroft-Gault) 8.8 BUN/Creatinine Ratio 4 (6-20) Glucose Level 76 mg/dL (70-99) Calcium Level 8.4 mg/dL (8.5-10.1) Total Bilirubin 0.3 mg/dL (0.2-1.0) Aspartate Amino Transf (AST/SGOT) 29 U/L (15-37) Alanine Aminotransferase (ALT/SGPT) 17 U/L (16-63) Alkaline Phosphatase 66 U/L (46-116) Total Protein 7.2 g/dL (6.4-8.2) Albumin 2.9 g/dL (3.4-5.0) Albumin/Globulin Ratio 0.7 (1.0-1.7) Microbiology 11/18/21 Blood Culture - Preliminary, Resulted NO GROWTH AFTER 2 DAYS Medications Current Medications Nitroglycerin/ Dextrose 250 ml @ 1.5 mls/hr 1X ONCE IV Last administered on 11/18/21at 01:20; Start 11/18/21 at 01:30; Stop 11/18/21 at 11:30; Status DC Furosemide (Lasix) 40 mg 1X ONCE IVP Last administered on 11/18/21at 03:26; Start 11/18/21 at 02:30; Stop 11/18/21 at 02:31; Status DC Ondansetron HCl (Zofran) 4 mg PRN Q8HRS PRN IVP NAUSEA/VOMITING 1ST CHOICE; Start 11/18/21 at 03:15; Stop 11/19/21 at 03:14; Status DC Acetaminophen (Tylenol) 1,000 mg 1X ONCE PO ; Start 11/18/21 at 03:30; Stop 11/18/21 at 03:31; Status DC Iohexol (Omnipaque 350 Mg/ml) 100 ml 1X ONCE IV Last administered on 11/18/21at 03:54; Start 11/18/21 at 04:00; Stop 11/18/21 at 04:01; Status DC Info (CONTRAST GIVEN -- Rx MONITORING) 1 each PRN DAILY PRN MC SEE COMMENTS; Start 11/18/21 at 03:45; Stop 11/20/21 at 03:44; Status DC Nitroglycerin/ Dextrose 250 ml @ 1.5 mls/hr CONT PRN IV SEE I/O RECORD Last administered on 11/18/21at 06:14; Start 11/18/21 at 06:15 Fentanyl Citrate (Fentanyl 2ml Vial) 50 mcg PRN Q2HRS PRN IV PAIN Last administered on 11/19/21at 06:21; Start 11/18/21 at 07:00 Amlodipine Besylate (Norvasc) 10 mg DAILY PO ; Start 11/19/21 at 09:00; Stop 11/18/21 at 10:59; Status DC Amlodipine Besylate (Norvasc) 10 mg 1X ONCE PO Last administered on 11/18/21at 09:47; Start 11/18/21 at 10:00; Stop 11/18/21 at 10:01; Status DC Hydralazine HCl (Apresoline) 50 mg TID PO Last administered on 11/20/21at 14:00; Start 11/18/21 at 10:00 Isosorbide Mononitrate (Imdur) 30 mg DAILY PO Last administered on 11/20/21at 09:09; Start 11/18/21 at 10:00 Aspirin (Ecotrin) 81 mg [id number] PO Last administered on 11/20/21at 09:07; Start 11/18/21 at 10:00 Lisinopril (Prinivil) 20 mg DAILY PO Last administered on 11/20/21at 09:09; S tart 11/18/21 at 10:00 Amlodipine Besylate (Norvasc) 10 mg BID PO Last administered on 11/20/21at 09:08; Start 11/18/21 at 21:00 Hydralazine HCl (Apresoline Inj) 10 mg PRN Q4HRS PRN IVP ELEVATED BP, SEE COMMENTS Last administered on 11/20/21at 11:17; Start 11/18/21 at 13:15 Heparin Sodium/ Dextrose 250 ml @ 10 mls/hr CONT PRN IV PER PROTOCOL Last administered on 11/20/21at 07:31; Start 11/18/21 at 14:00 Heparin Sodium (Porcine) (Heparin Sodium) 2,250 unit PRN Q6HRS PRN IV FOR UFH LEVEL LESS THAN 0.2 Last administered on 11/18/21at 21:47; Start 11/18/21 at 14:00 Sodium Chloride 1,000 ml @ 1,000 mls/hr Q1H PRN IV hypotension; Start 11/18/21 at 16:15; Stop 11/18/21 at 22:14; Status DC Albumin Human 200 ml @ 200 mls/hr 1X PRN PRN IV Hypotension; Start 11/18/21 at 16:15; Stop 11/18/21 at 22:14; Status DC Sodium Chloride (Normal Saline Flush) 10 ml 1X PRN PRN IV AP catheter pack; St art 11/18/21 at 16:15; Stop 11/19/21 at 16:14; Status DC Sodium Chloride (Normal Saline Flush) 10 ml 1X PRN PRN IV GAS LEAK TESTER catheter pack; Start 11/18/21 at 16:15; Stop 11/19/21 at 16:14; Status DC Info (PHARMACY MONITORING -- do not chart) 1 each PRN DAILY PRN MC SEE COMMENTS; Start 11/18/21 at 16:15; Stop 11/18/21 at 16:12; Status DC Info (PHARMACY MONITORING -- do not chart) 1 each PRN DAILY PRN MC SEE COMMENTS; Start 11/18/21 at 16:15 Ondansetron HCl (Zofran) 4 mg PRN Q8HRS PRN IVP NAUSEA/VOMITING, 1ST CHOICE; Start 11/19/21 at 10:30 Prochlorperazine Edisylate (Compazine) 10 mg PRN Q6HRS PRN IV NAUSEA/VOMITING, 2ND CHOICE; Start 11/19/21 at 10:30 Prochlorperazine Edisylate (Compazine) 10 mg PRN Q6HRS PRN IV NAUSEA/VOMITING; Start 11/19/21 at 10:45 Epoetin Riki (PROCRIT for DIALYSIS PTS) 10,000 unit 3X/WEEK ONCE SQ ; Start 11/21/21 at 09:00; Stop 11/21/21 at 09:01 Acetaminophen (Tylenol) 650 mg PRN Q6HRS PRN PO MILD PAIN / TEMP > 100.3'F Last administered on 11/20/21at 00:39; Start 11/19/21 at 16:30 Magnesium Sulfate 50 ml @ 25 mls/hr PRN DAILY PRN IV for Mag < 1.7 on am labs; Start 11/20/21 at 08:15 Magnesium Hydroxide (Milk Of Magnesia) 2,400 mg 1X ONCE PO Last administered on 11/20/21at 11:57; Start 11/20/21 at 11:45; Stop 11/20/21 at 11:47; Status DC Active Scripts Active Reported Acetaminophen 500 Mg Tablet 2 Tab PO PRN Q4-6HRS PRN 15 Days Senna Laxative (Sennosides) 8.6 Mg Tablet 2 Tab PO PRN BID PRN 30 Days Atorvastatin Calcium 40 Mg Tablet 1 Tab PO QHS Diclofenac Sodium 150 Ml Drops 1 Marilynn TP QID 30 Days Lisinopril 20 Mg Tablet 20 Mg PO DAILY Ferrous Sulfate 220 Mg/5 Ml Elixir 325 Mg PO DAILY Toprol XL (Metoprolol Succinate) 50 Mg Tab.er.24h 50 Mg PO DAILY Furosemide 20 Mg Tablet 1 Tab PO DAILY Children's Aspirin (Aspirin) 81 Mg Tab.chew 1 Tab PO DAILY 30 Days Nifedipine Er (Nifedipine) 60 Mg Tablet.er 1 Tab PO DAILY Vitals/I & O Vital Sign - Last 24 Hours 11/19/21 11/19/21 11/19/21 11/19/21 14:41 16:00 20:00 20:00 Temp 98.3 97.9 98.3 97.9 Pulse 77 87 86 Resp 16 16 B/P (MAP) 151/71 161/83 (109) 181/82 (115) Pulse Ox 99 O2 Delivery Room Air Room Air Room Air 11/19/21 11/19/21 11/20/21 11/20/21 20:36 20:37 00:00 04:00 Temp 98.1 97.9 98.1 97.9 Pulse 86 84 88 82 Resp 20 20 B/P (MAP) 181/82 181/82 176/90 (118) 184/82 (116) Pulse Ox 97 92 O2 Delivery Room Air Room Air 11/20/21 11/20/21 11/20/21 11/20/21 04:31 08:00 08:00 09:08 Temp 97.5 97.5 Pulse 85 86 86 Resp 19 B/P (MAP) 198/96 169/80 (109) 169/80 Pulse Ox 98 O2 Delivery Room Air Room Air 11/20/21 11/20/21 11/20/21 11/20/21 09:09 09:09 09:10 10:32 Temp 98.0 98.0 Pulse 86 86 86 77 Resp 18 B/P (MAP) 169/80 169/80 169/80 182/82 (115) Pulse Ox 98 O2 Delivery Room Air 11/20/21 11/20/21 11:17 14:00 Pulse 77 79 B/P (MAP) 182/82 159/67 Intake and Output 11/19/21 11/19/21 11/20/21 15:00 23:00 07:00 Intake Total 700 ml 750 ml 474.3 ml Output Total 150 ml 350 ml Balance 700 ml 600 ml 124.3 ml Justifications for Admission Other Justification CAMELIA HOLDEN MD Nov 20, 2021 14:35
[2021-11-21] VITALS (7 sets, daily range): BP systolic 154–184; BP diastolic 72–85
[2021-11-21 04:40] LABS: BASO % 1 % (0-3); EOS # 0.2 x10^3/uL (0.0-0.7); EOS % 3 % (0-3); HEMATOCRIT 27.7 % (39.0-53.0); HEMOGLOBIN 9.2 g/dL (13.0-17.5); LYMPH # 1.3 x10^3/uL (1.0-4.8); LYMPH % 23 % (24-48); MEAN CORPUSCULAR HEMOGLOBIN 27 pg (25-35); MEAN CORPUSCULAR HGB CONC 33 g/dL (31-37); MEAN CORPUSCULAR VOLUME 80 fL (79-100); MONO # 0.6 x10^3/uL (0.0-1.1); MONO % 11 % (0-9); NEUT # 3.3 x10^3/uL (1.8-7.7); NEUT % 62 % (31-73); PLATELET COUNT 240 x10^3/uL (140-400); RED BLOOD COUNT 3.44 x10^6/uL (4.30-5.70); RED CELL DISTRIBUTION WIDTH 18.6 % (11.5-14.5); WHITE BLOOD COUNT 5.4 x10^3/uL (4.0-11.0)
[2021-11-21 05:02] LABS: ALBUMIN 2.9 g/dL (3.4-5.0); CALCIUM 8.3 mg/dL (8.5-10.1); CREATININE 8.1 mg/dL (0.7-1.3); GFR 8.1; MAGNESIUM 2.5 mg/dL (1.8-2.4); PHOSPHORUS 4.7 mg/dL (2.6-4.7); POTASSIUM 4.4 mmol/L (3.5-5.1)
--- NOTE | 2021-11-21 08:25 | PDOC ---
IM PROGRESS NOTES- Subjective Subjective No c/o dyspnea,pain. Objective Vitals/I&O Vital Signs Date Time Temp Pulse Resp B/P (MAP) Pulse Ox O2 Delivery O2 Flow Rate FiO2 11/21/21 03:50 97.7 93 20 168/79 (108) 96 Room Air 97.7 I & O 11/20/21 11/20/21 11/21/21 15:00 23:00 07:00 Intake Total 920 ml 920 ml 360 ml Output Total 500 ml Balance 920 ml 920 ml -140 ml Physical Exam Physical Exam General Appearance - alert and in no distress Chest - decreased breath sounds at bases Heart - S1 and S2 normal Abdomen - soft, non tender Neurological - alert and oriented Musculoskeletal - generalized weakness Extremities - no edema Labs Laboratory Tests Test 11/20/21 15:10 11/21/21 03:25 Heparin Anti-Xa Act, Unfractionated 0.22 IU/mL (0.30-0.70) L White Blood Count 5.4 x10^3/uL (4.0-11.0) Red Blood Count 3.44 x10^6/uL (4.30-5.70) L Hemoglobin 9.2 g/dL (13.0-17.5) L Hematocrit 27.7 % (39.0-53.0) L Mean Corpuscular Volume 80 fL (79-100) Mean Corpuscular Hemoglobin 27 pg (25-35) Mean Corpuscular Hemoglobin Concent 33 g/dL (31-37) Red Cell Distribution Width 18.6 % (11.5-14.5) H Platelet Count 240 x10^3/uL (140-400) Neutrophils (%) (Auto) 62 % (31-73) Lymphocytes (%) (Auto) 23 % (24-48) L Monocytes (%) (Auto) 11 % (0-9) H Eosinophils (%) (Auto) 3 % (0-3) Basophils (%) (Auto) 1 % (0-3) Neutrophils # (Auto) 3.3 x10^3/uL (1.8-7.7) Lymphocytes # (Auto) 1.3 x10^3/uL (1.0-4.8) Monocytes # (Auto) 0.6 x10^3/uL (0.0-1.1) Eosinophils # (Auto) 0.2 x10^3/uL (0.0-0.7) Basophils # (Auto) 0.0 x10^3/uL (0.0-0.2) Sodium Level 134 mmol/L (136-145) L Potassium Level 4.4 mmol/L (3.5-5.1) Chloride Level 97 mmol/L (98-107) L Carbon Dioxide Level 27 mmol/L (21-32) Anion Gap 10 (6-14) Blood Urea Nitrogen 37 mg/dL (8-26) H Creatinine 8.1 mg/dL (0.7-1.3) H Estimated GFR (Cockcroft-Gault) 8.1 Glucose Level 78 mg/dL (70-99) Calcium Level 8.3 mg/dL (8.5-10.1) L Phosphorus Level 4.7 mg/dL (2.6-4.7) Magnesium Level 2.5 mg/dL (1.8-2.4) H Albumin 2.9 g/dL (3.4-5.0) L Laboratory Tests 11/21/21 03:25 Laboratory Tests 11/21/21 03:25 Meds Current Medications Medications (Trade) Dose Ordered Sig/Yossi Route PRN Reason Start Time Stop Time Status Last Admin Dose Admin Magnesium Hydroxide (Milk Of Magnesia) 2,400 mg 1X ONCE PO 11/20/21 11:45 11/20/21 11:47 DC 11/20/21 11:57 Assessment Assessment IMP: 1. Acute pulmonary edema and [id number] congestive heart failure, likely because of hypertensive crisis, likely induced by cocaine abuse. 2. End-stage renal disease, on hemodialysis. 3. Recent renal cell carcinoma, status post right nephrectomy. 4. Coronary artery disease, status post coronary artery bypass graft. 5. Acute pulmonary edema. 6. Leukocytosis. Chest x-ray shows infiltrates. Monitor for pneumonia. 7. Diabetes mellitus type 2, monitor blood sugar. 8. Anemia. 9. Physical deconditioning. 10. Cocaine abuse. 11. Acute NSTEMI. PLAN:d/c heparin drip if ok with cardiology. 1. Acute pulmonary edema, improving. The patient is moved out of ICU. Consult Dr. Sanchez for cardiology evaluation and management. Echocardiogram 11/18/21 good LVF 2. End-stage renal disease, on hemodialysis. Consult Dr. Bullock for nephrology evaluation and management. Continue hemodialysis Sunday, Sunday, Sunday. 3. Cocaine abuse. The patient is strongly advised to avoid illicit drugs. 4. Diabetes mellitus. Monitor. 5. Hypertensive crisis, improved. Resume home medications. 6. Acute NSTEMI- likely due to demand ischemia. Cardiac cath today,followed by dialysis. IV Heparin drip. 6. Vomiting. Compazine prn. For details, please refer to the orders. Consult Dr. Kennedy for pulmonary evaluation and management, Dr. Bullock for nephrology evaluation and management. Leukocytosis resolved. Likely reactive. Discharge tomorrow,if stable. Plan Plan For more details regarding further plans, please refer to the orders. Justifications for Admission Other Justification SAGAR WISE MD Nov 21, 2021 08:25
[2021-11-21] MEDS: ISOSORBIDE MONONITRATE ER 30 MG TAB.ER.24H PO SCH (08:29)
[2021-11-21] MEDS: ASPIRIN ENTERIC COATED 81 MG TABLET.DR. PO SCH (08:31)
[2021-11-21] MEDS: LISINOPRIL 20 MG TABLET PO SCH (08:31)
[2021-11-21] MEDS ORDERED: EPOETIN ALFA 20,000 UNIT/ML VIAL for DIALYSIS PTS. SQ ONE (09:00)
--- NOTE | 2021-11-21 09:01 | PDOC ---
PULMONARY PROGRESS NOTES DATE: 11/21/21 TIME: 09:01 Vitals Vital Signs Date Time Temp Pulse Resp B/P (MAP) Pulse Ox O2 Delivery O2 Flow Rate FiO2 11/21/21 08:31 98 178/72 11/21/21 07:00 97.6 18 96 Room Air 97.6 ROS: No Nausea, No Chest Pain, No Abdominal Pain, No Increase Cough General: Alert Lungs: Crackles Cardiovascular: S1, S2 Abdomen: Soft Neuro Exam: Alert, Oriented Extremities: No Edema Skin: Warm Labs Laboratory Tests Test 11/19/21 11:05 11/20/21 07:30 11/20/21 15:10 11/21/21 03:25 Heparin Anti-Xa Act, Unfractionated 0.37 IU/mL (0.30-0.70) 0.28 IU/mL (0.30-0.70) 0.22 IU/mL (0.30-0.70) White Blood Count 5.2 x10^3/uL (4.0-11.0) 5.4 x10^3/uL (4.0-11.0) Red Blood Count 3.55 x10^6/uL (4.30-5.70) 3.44 x10^6/uL (4.30-5.70) Hemoglobin 9.5 g/dL (13.0-17.5) 9.2 g/dL (13.0-17.5) Hematocrit 28.7 % (39.0-53.0) 27.7 % (39.0-53.0) Mean Corpuscular Volume 81 fL (79-100) 80 fL (79-100) Mean Corpuscular Hemoglobin 27 pg (25-35) 27 pg (25-35) Mean Corpuscular Hemoglobin Concent 33 g/dL (31-37) 33 g/dL (31-37) Red Cell Distribution Width 18.8 % (11.5-14.5) 18.6 % (11.5-14.5) Platelet Count 222 x10^3/uL (140-400) 240 x10^3/uL (140-400) Neutrophils (%) (Auto) 55 % (31-73) 62 % (31-73) Lymphocytes (%) (Auto) 29 % (24-48) 23 % (24-48) Monocytes (%) (Auto) 12 % (0-9) 11 % (0-9) Eosinophils (%) (Auto) 3 % (0-3) 3 % (0-3) Basophils (%) (Auto) 1 % (0-3) 1 % (0-3) Neutrophils # (Auto) 2.8 x10^3/uL (1.8-7.7) 3.3 x10^3/uL (1.8-7.7) Lymphocytes # (Auto) 1.5 x10^3/uL (1.0-4.8) 1.3 x10^3/uL (1.0-4.8) Monocytes # (Auto) 0.6 x10^3/uL (0.0-1.1) 0.6 x10^3/uL (0.0-1.1) Eosinophils # (Auto) 0.2 x10^3/uL (0.0-0.7) 0.2 x10^3/uL (0.0-0.7) Basophils # (Auto) 0.0 x10^3/uL (0.0-0.2) 0.0 x10^3/uL (0.0-0.2) Sodium Level 135 mmol/L (136-145) 134 mmol/L (136-145) Potassium Level 4.1 mmol/L (3.5-5.1) 4.4 mmol/L (3.5-5.1) Chloride Level 97 mmol/L (98-107) 97 mmol/L (98-107) Carbon Dioxide Level 27 mmol/L (21-32) 27 mmol/L (21-32) Anion Gap 11 (6-14) 10 (6-14) Blood Urea Nitrogen 32 mg/dL (8-26) 37 mg/dL (8-26) Creatinine 7.5 mg/dL (0.7-1.3) 8.1 mg/dL (0.7-1.3) Estimated GFR (Cockcroft-Gault) 8.8 8.1 BUN/Creatinine Ratio 4 (6-20) Glucose Level 76 mg/dL (70-99) 78 mg/dL (70-99) Calcium Level 8.4 mg/dL (8.5-10.1) 8.3 mg/dL (8.5-10.1) Total Bilirubin 0.3 mg/dL (0.2-1.0) Aspartate Amino Transf (AST/SGOT) 29 U/L (15-37) Alanine Aminotransferase (ALT/SGPT) 17 U/L (16-63) Alkaline Phosphatase 66 U/L (46-116) Total Protein 7.2 g/dL (6.4-8.2) Albumin 2.9 g/dL (3.4-5.0) 2.9 g/dL (3.4-5.0) Albumin/Globulin Ratio 0.7 (1.0-1.7) Phosphorus Level 4.7 mg/dL (2.6-4.7) Magnesium Level 2.5 mg/dL (1.8-2.4) Laboratory Tests Test 11/20/21 15:10 11/21/21 03:25 Heparin Anti-Xa Act, Unfractionated 0.22 IU/mL (0.30-0.70) White Blood Count 5.4 x10^3/uL (4.0-11.0) Red Blood Count 3.44 x10^6/uL (4.30-5.70) Hemoglobin 9.2 g/dL (13.0-17.5) Hematocrit 27.7 % (39.0-53.0) Mean Corpuscular Volume 80 fL (79-100) Mean Corpuscular Hemoglobin 27 pg (25-35) Mean Corpuscular Hemoglobin Concent 33 g/dL (31-37) Red Cell Distribution Width 18.6 % (11.5-14.5) Platelet Count 240 x10^3/uL (140-400) Neutrophils (%) (Auto) 62 % (31-73) Lymphocytes (%) (Auto) 23 % (24-48) Monocytes (%) (Auto) 11 % (0-9) Eosinophils (%) (Auto) 3 % (0-3) Basophils (%) (Auto) 1 % (0-3) Neutrophils # (Auto) 3.3 x10^3/uL (1.8-7.7) Lymphocytes # (Auto) 1.3 x10^3/uL (1.0-4.8) Monocytes # (Auto) 0.6 x10^3/uL (0.0-1.1) Eosinophils # (Auto) 0.2 x10^3/uL (0.0-0.7) Basophils # (Auto) 0.0 x10^3/uL (0.0-0.2) Sodium Level 134 mmol/L (136-145) Potassium Level 4.4 mmol/L (3.5-5.1) Chloride Level 97 mmol/L (98-107) Carbon Dioxide Level 27 mmol/L (21-32) Anion Gap 10 (6-14) Blood Urea Nitrogen 37 mg/dL (8-26) Creatinine 8.1 mg/dL (0.7-1.3) Estimated GFR (Cockcroft-Gault) 8.1 Glucose Level 78 mg/dL (70-99) Calcium Level 8.3 mg/dL (8.5-10.1) Phosphorus Level 4.7 mg/dL (2.6-4.7) Magnesium Level 2.5 mg/dL (1.8-2.4) Albumin 2.9 g/dL (3.4-5.0) Medications Active Scripts Medications Dose Route/Sig Max Daily Dose Days Date Category Acetaminophen 500 Mg Tablet 2 Tab PO PRN Q4-6HRS PRN 15 11/18/21 Reported Senna Laxative (Sennosides) 8.6 Mg Tablet 2 Tab PO PRN BID PRN 30 11/18/21 Reported Atorvastatin Calcium 40 Mg Tablet 1 Tab PO QHS 11/18/21 Reported Diclofenac Sodium 150 Ml Drops 1 Marilynn TP QID 30 11/18/21 Reported Lisinopril 20 Mg Tablet 20 Mg PO DAILY 11/18/21 Reported Ferrous Sulfate 220 Mg/5 Ml Elixir 325 Mg PO DAILY 11/18/21 Reported Toprol XL (Metoprolol Succinate) 50 Mg Tab.er.24h 50 Mg PO DAILY 11/18/21 Reported Furosemide 20 Mg Tablet 1 Tab PO DAILY 11/18/21 Reported Children's Aspirin (Aspirin) 81 Mg Tab.chew 1 Tab PO DAILY 30 11/18/21 Reported Nifedipine Er (Nifedipine) 60 Mg Tablet.er 1 Tab PO DAILY 11/18/21 Reported Impression . IMPRESSION: 1. Acute hypoxemic respiratory failure secondary to acute pulmonary edema. 2. Acute pulmonary edema secondary to malignant hypertension. 3. Coronary artery disease, status post coronary artery bypass grafting. 4. Uncontrolled hypertension related to cocaine use. 5. Non-ST segment elevation myocardial infarction. 6. Status post right nephrectomy approximately 2 weeks ago due to what the patient thinks his cancer. 7. End-stage renal disease. 8. Tobacco use/chronic obstructive pulmonary disease. 9. Secondary pulmonary hypertension 10. Acute pulmonary edema secondary to diastolic dysfunction Plan . 11/21 Patient will undergo cardiac catheterization Patient to undergo dialysis Patient respiratory status remains tenuous Continue as needed BiPAP Nasal cannula oxygen throughout the day as needed Echocardiogram obtained pulmonary artery pressure of 46 ejection fraction normal Blood pressure is better controlled Patient instructed on the importance of discontinue tobacco and cocaine use White count has come down Hemoglobin hematocrit stable repeat chest x-ray in the morning DEAN CASTRO MD Nov 21, 2021 09:01
--- NOTE | 2021-11-21 09:46 | PDOC ---
DATE OF SERVICE DATE: 11/21/21 TIME: 09:46 SUBJECTIVE ROS Stable, No complaints on dialysis. States he is feeling well OBJECTIVE Vital Signs Vital Signs Date Time Temp Pulse Resp B/P (MAP) Pulse Ox O2 Delivery O2 Flow Rate FiO2 11/21/21 08:31 98 178/72 11/21/21 07:00 97.6 18 96 Room Air 97.6 I & 0 Intake and Output 11/21/21 07:00 Intake Total 2200 ml Output Total 500 ml Balance 1700 ml Intake Oral 2200 ml Output Urine Total 500 ml # Voids 1 # Bowel Movements 1 PHYSICAL EXAM Physical Exam General: No acute distress, sitting in bed, On o2 by NC HEENT: Atraumatic, Mucous membr. moist/pink Neck Supple Lungs diminished bases, Non labored Heart: Regular rate Normal S1, Normal S2, 2/6 systolic murmur Abdomen: Soft, No tenderness. Obese Extremities: No cyanosis, No edema Skin: No breakdown, No Rash Neuro: Grossly Normal Psych/Mental Status: Cooperative No Petit, o CVA or SP tenderness DIAGNOSIS/ASSESSMENT Assessment & Plan ESRD MWF at [facility] ,seen during dialysis, tolerating well. Continue as ordered , Don JEWELL Acute on chronic CHF with possible diastolic dysfunction: possibly induced by u ncontrolled HTN with associated cocaine. Echocardiogram shows an ejection fraction of 50 to 55%. NSTEMI:History of bypass surgery. Plan for [facility] today Acute Resp Failure 2/2 AC on Chr CHF POA - Resolved Abnormal CT Chest- . Pulmonary edema and small pleural effusions. There are scattered centrilobular groundglass nodules and nodular opacities most likely reflective of pulmonary edema although a superimposed disseminated infection is also a possibility. Follow-up CT chest imaging in 3 months is advised to document that this resolves to exclude an underlying neoplastic nodule. 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 DM2 Cocaine use: used night prior to admission Tobacco abuse COMMENT/RELEVANT DATA Meds Current Medications Medications (Trade) Dose Ordered Sig/Yossi Start Time Stop Time Status Last Admin Dose Admin Acetaminophen (Tylenol) 650 mg PRN Q6HRS PRN 11/19/21 16:30 11/20/21 21:50 650 MG Albumin Human 200 ml @ 200 mls/hr 1X PRN PRN 11/18/21 16:15 4/22/22 22:14 DC Amlodipine Besylate (Norvasc) 10 mg BID 11/18/21 21:00 11/21/21 08:30 10 MG Aspirin (Ecotrin) 81 mg [id number] 11/18/21 10:00 11/21/21 08:31 81 MG Epoetin Riki (PROCRIT for DIALYSIS PTS) 10,000 unit 3X/WEEK ONCE 11/21/21 09:00 11/21/21 09:01 DC Fentanyl Citrate (Fentanyl 2ml Vial) 50 mcg PRN Q2HRS PRN 11/18/21 07:00 11/19/21 06:21 50 MCG Furosemide (Lasix) 40 mg 1X ONCE 11/18/21 02:30 11/18/21 02:31 DC 11/18/21 03:26 40 MG Heparin Sodium (Porcine) (Heparin Sodium) 2,250 unit PRN Q6HRS PRN 11/18/21 14:00 11/20/21 14:40 DC 11/18/21 21:47 2,250 UNIT Heparin Sodium/ Dextrose 250 ml @ 10 mls/hr CONT PRN 11/18/21 14:00 11/20/21 14:40 DC 11/20/21 07:31 10 MLS/HR Hydralazine HCl (Apresoline Inj) 10 mg PRN Q4HRS PRN 11/18/21 13:15 11/20/21 11:17 10 MG Hydralazine HCl (Apresoline) 50 mg TID 11/18/21 10:00 11/21/21 08:31 50 MG Info (CONTRAST GIVEN -- Rx MONITORING) 1 each PRN DAILY PRN 11/18/21 03:45 11/20/21 03:44 DC Info (PHARMACY MONITORING -- do not chart) 1 each PRN DAILY PRN 11/18/21 16:15 Iohexol (Omnipaque 350 Mg/ml) 100 ml 1X ONCE 11/18/21 04:00 11/18/21 04:01 DC 11/18/21 03:54 90 ML Isosorbide Mononitrate (Imdur) 30 mg DAILY 11/18/21 10:00 11/21/21 08:29 30 MG Lisinopril (Prinivil) 20 mg DAILY 11/18/21 10:00 11/21/21 08:31 20 MG Magnesium Hydroxide (Milk Of Magnesia) 2,400 mg 1X ONCE 11/20/21 11:45 11/20/21 11:47 DC 11/20/21 11:57 2,400 MG Magnesium Sulfate 50 ml @ 25 mls/hr PRN DAILY PRN 11/20/21 08:15 Nitroglycerin/ Dextrose 250 ml @ 1.5 mls/hr CONT PRN 11/18/21 06:15 11/18/21 06:14 42 MLS/HR Ondansetron HCl (Zofran) 4 mg PRN Q8HRS PRN 11/19/21 10:30 Prochlorperazine Edisylate (Compazine) 10 mg PRN Q6HRS PRN 11/19/21 10:45 Sodium Chloride (Normal Saline Flush) 10 ml 1X PRN PRN 11/18/21 16:15 11/19/21 16:14 DC Lab Laboratory Tests Test 11/20/21 15:10 11/21/21 03:25 Heparin Anti-Xa Act, Unfractionated 0.22 IU/mL (0.30-0.70) White Blood Count 5.4 x10^3/uL (4.0-11.0) Red Blood Count 3.44 x10^6/uL (4.30-5.70) Hemoglobin 9.2 g/dL (13.0-17.5) Hematocrit 27.7 % (39.0-53.0) Mean Corpuscular Volume 80 fL (79-100) Mean Corpuscular Hemoglobin 27 pg (25-35) Mean Corpuscular Hemoglobin Concent 33 g/dL (31-37) Red Cell Distribution Width 18.6 % (11.5-14.5) Platelet Count 240 x10^3/uL (140-400) Neutrophils (%) (Auto) 62 % (31-73) Lymphocytes (%) (Auto) 23 % (24-48) Monocytes (%) (Auto) 11 % (0-9) Eosinophils (%) (Auto) 3 % (0-3) Basophils (%) (Auto) 1 % (0-3) Neutrophils # (Auto) 3.3 x10^3/uL (1.8-7.7) Lymphocytes # (Auto) 1.3 x10^3/uL (1.0-4.8) Monocytes # (Auto) 0.6 x10^3/uL (0.0-1.1) Eosinophils # (Auto) 0.2 x10^3/uL (0.0-0.7) Basophils # (Auto) 0.0 x10^3/uL (0.0-0.2) Sodium Level 134 mmol/L (136-145) Potassium Level 4.4 mmol/L (3.5-5.1) Chloride Level 97 mmol/L (98-107) Carbon Dioxide Level 27 mmol/L (21-32) Anion Gap 10 (6-14) Blood Urea Nitrogen 37 mg/dL (8-26) Creatinine 8.1 mg/dL (0.7-1.3) Estimated GFR (Cockcroft-Gault) 8.1 Glucose Level 78 mg/dL (70-99) Calcium Level 8.3 mg/dL (8.5-10.1) Phosphorus Level 4.7 mg/dL (2.6-4.7) Magnesium Level 2.5 mg/dL (1.8-2.4) Albumin 2.9 g/dL (3.4-5.0) Results All relevant outside records, renal labs, imaging studies, telemetry/EKG's were reviewed. Justicifation of Admission Dx: Justifications for Admission: Justification of Admission Dx: N/A NIRAJ SEGOVIA MD Nov 21, 2021 09:46
[2021-11-21] MEDS ORDERED: DIALYSIS PATIENT. MC PRN (10:15)
[2021-11-21] MEDS ORDERED: IV NORMAL SALINE 1000ML BAG 1,000 ML IV PRN ×2 (10:15)
[2021-11-21] MEDS ORDERED: ACETAMINOPHEN 325 MG TABLET. PO ONE (13:45)
[2021-11-21] MEDS ORDERED: LIDOCAINE 1% Multi-Dose 20 ML VIAL. ONE (14:12)
[2021-11-21] MEDS ORDERED: IODIXANOL 320 MG/ML 100 ML VIAL. ONE ×2 (14:12→15:20)
[2021-11-21] MEDS ORDERED: fentaNYL PF VIAL 100 MCG/2 ML VIAL ONE (14:51)
[2021-11-21] MEDS ORDERED: MIDAZOLAM HCL/PF 5 MG/5 ML VIAL. ONE (14:51)
[2021-11-21] MEDS ORDERED: fentaNYL PF VIAL 100 MCG/2 ML VIAL IV ONE (15:15)
[2021-11-21] MEDS ORDERED: LIDOCAINE 1% Multi-Dose 20 ML VIAL. INJ ONE (15:15)
[2021-11-21] MEDS ORDERED: MIDAZOLAM HCL/PF 5 MG/5 ML VIAL. IV ONE (15:15)
[2021-11-21] MEDS ORDERED: IODIXANOL 320 MG/ML 100 ML VIAL. IART ONE (15:15)
--- NOTE | 2021-11-21 15:48 | PDOC ---
MODERATE SEDATION ASSESSMENT RISKS/ALTERNATIVES Risks/Alternatives Risks and alternatives of this type of sedation and procedure discussed with: RISK/ALTERNATIVES: Patient H & P ON CHART H & P H & P on chart and reviewed for co-morbid conditions and appropriate labs. H&P ON CHART: Yes STATUS PREG STATUS ASSESSED: N/A MEDS/ALLERGIES REVIEWED Meds/Allergies Reviewed Medications and Allergies including time and route of recently administered narcotics and sedatives. MEDS/ALLERGIES REVIEWED: Yes ASA RATING ASA RATING: III AIRWAY ASSESSMENT Airway Assessment Airway patency, oral function limitations, presence of caps, crowns, dentures, partials, and ability to extend neck assessed. AIRWAY ASSESSMENT: Yes MALLAMPATI SCORE MALLAMPATI SCORE: II PRE-SEDATION ASSESSMENT PRE-SEDATION ASSESSMENT: Yes RADHA HULL MD Nov 21, 2021 15:48
[2021-11-21] MEDS: hydrALAZINE 20 MG/ML VIAL. IVP PRN (16:05)
--- NOTE | 2021-11-21 16:19 | CARD ---
MR#: [id number] Date of Study: 11/21/2021 Ordering Physician: CAMELIA HOLDEN, Referring Physician: CAMELIA HOLDEN, Tech: RT Gwen(R) APPROVED REPORT Technologist: RT Gwen(R) Nurse: Shellie Toscano RN Procedure(s) performed: Left heart catheterization, selective coronary angiography, selective angiogr aphy of the bypass grafts and root aortogram Fluoro time: 11.4 min Dose: [id number] COntrast: 208cc visi moderate sedation: 30 MIN INDICATION The indication(s) include : non-STEMI . [facility] Clinical Frailty Scale [facility] Clinical Frailty Scale: Moderately Frail Heart Failure Heart Failure: Yes If Yes, Newly Diagnosed: No If Yes, HF Type: Diastolic If Yes, NYHA Class: Class II CASE TECHNIQUE IV conscious sedation was used throughout procedure with appropriate monitoring and was performed in the presence of a registered nurse who was an independent trained observer other than the physician p erforming the procedure. During this case, Fluoroscopy and low osmolar contrast were used for imaging . Specimen(s) Removed: No Estimated Blood loss: 15 cc's. PROCEDURE NARRATIVE After explaining the risks, benefits and alternative options, informed consent was obtained from sivan ent. Patient was brought to the cardiac Research Animal Attendant and his right groin was prepped and draped in the u sual fashion. 10 cc of 2% lidocaine was infiltrated into the skin and subcutaneous tissues for local anesthesia. Arterial access was obtained in the right common femoral artery and a 6 [place] sheath w as inserted. 6 [place] JL 4 and 6 [place] JR4 catheters were used to perform selective angiography of the left and right coronary arteries. 6 [place] JR4 catheter was then used to perform selective angio graphy of the saphenous vein graft to the right coronary artery, saphenous vein graft to the obtuse m arginal branch. 6 [place] IM catheter was used to perform selective angiography of the left internal mammary graft to the left anterior descending artery. A 6 [place] pigtail catheter was positioned in the aortic root and aortogram was performed to rule out any other bypass grafts. Patient tolerated t he procedure well. Hemostasis was achieved using Angio-Seal. There were no immediate complications. FINDINGS 1. The left main coronary artery arose from the left sinus of Valsalva, gave rise to the left anteri or sending left circumflex arteries and did not show any significant stenosis. 2. The left anterior descending artery showed 90% stenosis in the midsegment. 3. The left circumflex artery showed 60% stenosis in the proximal segment. The first obtuse margina l branch which is a small to medium caliber vessel did not show any significant stenosis. The second obtuse marginal branch which is a small caliber vessel showed 100% chronic occlusion in the proximal segment with faint distal reconstitution from left to left collaterals. 4. The right coronary artery was a dominant vessel arising from the right sinus of Valsalva and show ed several aneurysmal segments without any critical lesions needing intervention. The posterolateral branch appears to be reconstituting from collaterals from left circumflex artery. 5. The saphenous vein graft to the right coronary artery appears to be chronically occluded. 6. The saphenous vein graft to the obtuse marginal branch is chronically occluded. 7. The left internal mammary artery graft to the left and to descending artery is widely patent. 8. Root aortogram did not show any other bypass grafts. Conclusion Severe [place] vessel coronary artery disease s/p coronary artery bypass surgery as described above wi th patent LUIS to LAD and without any lesions needing intervention. Recommendations Optimization of medical therapy Signed by : Tomy Kaiser, Electronically Approved : 11/21/2021 16:19:05
[2021-11-21] MEDS: ACETAMINOPHEN 325 MG TABLET. PO PRN (20:58)
[2021-11-22 03:19] VITALS: BP 169/77
[2021-11-22 06:21] LABS: BASO % 0 % (0-3); EOS # 0.1 x10^3/uL (0.0-0.7); EOS % 2 % (0-3); HEMATOCRIT 28.4 % (39.0-53.0); HEMOGLOBIN 9.2 g/dL (13.0-17.5); LYMPH # 0.8 x10^3/uL (1.0-4.8); LYMPH % 14 % (24-48); MEAN CORPUSCULAR HEMOGLOBIN 26 pg (25-35); MEAN CORPUSCULAR HGB CONC 33 g/dL (31-37); MEAN CORPUSCULAR VOLUME 80 fL (79-100); MONO # 0.7 x10^3/uL (0.0-1.1); MONO % 13 % (0-9); NEUT # 3.8 x10^3/uL (1.8-7.7); NEUT % 71 % (31-73); PLATELET COUNT 237 x10^3/uL (140-400); RED BLOOD COUNT 3.53 x10^6/uL (4.30-5.70); RED CELL DISTRIBUTION WIDTH 18.9 % (11.5-14.5); WHITE BLOOD COUNT 5.4 x10^3/uL (4.0-11.0)
[2021-11-22 06:39] LABS: ALBUMIN 2.8 g/dL (3.4-5.0); CALCIUM 8.4 mg/dL (8.5-10.1); CREATININE 5.8 mg/dL (0.7-1.3); GFR 11.9; MAGNESIUM 2.3 mg/dL (1.8-2.4); POTASSIUM 4.1 mmol/L (3.5-5.1)
[2021-11-22 07:00] VITALS: BP 167/74
[2021-11-22] MEDS: ASPIRIN ENTERIC COATED 81 MG TABLET.DR. PO SCH (07:43)
[2021-11-22] MEDS: ISOSORBIDE MONONITRATE ER 30 MG TAB.ER.24H PO SCH (07:44)
[2021-11-22] MEDS: LISINOPRIL 20 MG TABLET PO SCH (07:46)
[2021-11-22] MEDS: ACETAMINOPHEN 325 MG TABLET. PO PRN (07:46)
[2021-11-22] MEDS ORDERED: LISI-130 PO (09:37)
[2021-11-22] MEDS ORDERED: HYDR-2869 PO (09:37)
[2021-11-22] MEDS ORDERED: ISOS30TA68 PO (09:37)
[2021-11-22] MEDS ORDERED: AMLO-187 PO (09:37)
--- NOTE | 2021-11-22 09:39 | PDOC ---
IM PROGRESS NOTES- Subjective Subjective No c/o dyspnea,pain. Objective Vitals/I&O Vital Signs Date Time Temp Pulse Resp B/P (MAP) Pulse Ox O2 Delivery O2 Flow Rate FiO2 11/22/21 07:46 91 167/74 11/22/21 07:00 98.5 18 96 Room Air 98.5 11/21/21 15:15 2.0 I & O 11/21/21 11/21/21 11/22/21 15:00 23:00 07:00 Intake Total 0 ml 440 ml Balance 0 ml 440 ml Physical Exam Physical Exam General Appearance - alert and in no distress Chest - decreased breath sounds at bases Heart - S1 and S2 normal Abdomen - soft, non tender Neurological - alert and oriented Musculoskeletal - generalized weakness Extremities - no edema Labs Laboratory Tests Test 11/22/21 04:55 White Blood Count 5.4 x10^3/uL (4.0-11.0) Red Blood Count 3.53 x10^6/uL (4.30-5.70) L Hemoglobin 9.2 g/dL (13.0-17.5) L Hematocrit 28.4 % (39.0-53.0) L Mean Corpuscular Volume 80 fL (79-100) Mean Corpuscular Hemoglobin 26 pg (25-35) Mean Corpuscular Hemoglobin Concent 33 g/dL (31-37) Red Cell Distribution Width 18.9 % (11.5-14.5) H Platelet Count 237 x10^3/uL (140-400) Neutrophils (%) (Auto) 71 % (31-73) Lymphocytes (%) (Auto) 14 % (24-48) L Monocytes (%) (Auto) 13 % (0-9) H Eosinophils (%) (Auto) 2 % (0-3) Basophils (%) (Auto) 0 % (0-3) Neutrophils # (Auto) 3.8 x10^3/uL (1.8-7.7) Lymphocytes # (Auto) 0.8 x10^3/uL (1.0-4.8) L Monocytes # (Auto) 0.7 x10^3/uL (0.0-1.1) Eosinophils # (Auto) 0.1 x10^3/uL (0.0-0.7) Basophils # (Auto) 0.0 x10^3/uL (0.0-0.2) Sodium Level 138 mmol/L (136-145) Potassium Level 4.1 mmol/L (3.5-5.1) Chloride Level 101 mmol/L (98-107) Carbon Dioxide Level 28 mmol/L (21-32) Anion Gap 9 (6-14) Blood Urea Nitrogen 20 mg/dL (8-26) Creatinine 5.8 mg/dL (0.7-1.3) H Estimated GFR (Cockcroft-Gault) 11.9 Glucose Level 60 mg/dL (70-99) L Calcium Level 8.4 mg/dL (8.5-10.1) L Phosphorus Level 4.0 mg/dL (2.6-4.7) Magnesium Level 2.3 mg/dL (1.8-2.4) Albumin 2.8 g/dL (3.4-5.0) L Laboratory Tests 11/22/21 04:55 Laboratory Tests 11/22/21 04:55 Meds Current Medications Medications (Trade) Dose Ordered Sig/Yossi Route PRN Reason Start Time Stop Time Status Last Admin Dose Admin Acetaminophen (Tylenol) 650 mg 1X ONCE PO 11/21/21 13:45 11/21/21 13:46 DC 11/21/21 13:47 Heparin Sodium/ Sodium Chloride (HEPARIN for ARTERIAL LINE FLUSH) 1,000 unit 1X ONCE IART 11/21/21 15:15 11/21/21 15:16 DC 11/21/21 15:15 Midazolam HCl (Versed) 5 mg 1X ONCE IV 11/21/21 15:15 11/21/21 15:16 DC 11/21/21 15:15 Fentanyl Citrate (Fentanyl 2ml Vial) 100 mcg 1X ONCE IV 11/21/21 15:15 11/21/21 15:16 DC 11/21/21 15:15 Iodixanol (Visipaque 320) 100 ml 1X ONCE IART 11/21/21 15:15 11/21/21 15:16 DC 11/21/21 15:15 Lidocaine HCl (Lidocaine 1% 20ml Vial) 20 ml 1X ONCE INJ 11/21/21 15:15 11/21/21 15:16 DC 11/21/21 15:15 Assessment Assessment IMP: 1. Acute pulmonary edema and [id number] congestive heart failure, likely because of hypertensive crisis, likely induced by cocaine abuse. 2. End-stage renal disease, on hemodialysis. 3. Recent renal cell carcinoma, status post right nephrectomy. 4. Coronary artery disease, status post coronary artery bypass graft. 5. Acute pulmonary edema. 6. Leukocytosis. Chest x-ray shows infiltrates. Monitor for pneumonia. 7. Diabetes mellitus type 2, monitor blood sugar. 8. Anemia. 9. Physical deconditioning. 10. Cocaine abuse. 11. Acute NSTEMI. PLAN:d/c heparin drip if ok with cardiology. 1. Acute pulmonary edema, improving. The patient is moved out of ICU. Consult Dr. Sanchez for cardiology evaluation and management. Echocardiogram 11/18/21 good LVF 2. End-stage renal disease, on hemodialysis. Consult Dr. Bullock for nephrology evaluation and management. Continue hemodialysis Sunday, Sunday, Sunday. 3. Cocaine abuse. The patient is strongly advised to avoid illicit drugs. 4. Diabetes mellitus. Monitor. 5. Hypertensive crisis, improved. Resume home medications. 6. Acute NSTEMI- likely due to demand ischemia. He had Cardiac cath yesterday- report pending. Initially treted with IV Heparin drip. Cardiac cath preliminary verbal report- 2 of the CABG vessels are occluded. 6. Vomiting. Compazine prn. For details, please refer to the orders. Consult Dr. Kennedy for pulmonary evaluation and management, Dr. Bullock for nephrology evaluation and management. Leukocytosis resolved. Likely reactive. Discharge home when ok with cardiology. Advised to avoid Cocaine/illicit drugs. See me in the office in 9 days on . Discharge management 35 minutes. Plan Plan For more details regarding further plans, please refer to the orders. Justifications for Admission Other Justification SAGAR WISE MD Nov 22, 2021 09:39
--- NOTE | 2021-11-22 09:42 | DISCH ---
DISCHARGE INSTRUCTIONS Condition on Discharge Condition on Discharge: Stable Activity After Discharge Activity Instructions for Disc: Activity as tolerated Diet after Discharge Diet after Discharge: Cardiac Checks after Discharge Checks after discharge: Check blood press - daily Contacting the DRNikki after DC Call your doctor for: Concerns you may have Follow-Up Follow up with: Dr.Pratip Wise in 9 days on December 01. Follow Up With: Interior Design Assistant,customer service trainer SAGAR WISE MD Nov 22, 2021 09:42
--- NOTE | 2021-11-22 09:54 | PDOC ---
PULMONARY PROGRESS NOTES DATE: 11/22/21 TIME: 09:52 Subjective Patient denies any shortness of breath. Currently on room air. Vitals Vital Signs Date Time Temp Pulse Resp B/P (MAP) Pulse Ox O2 Delivery O2 Flow Rate FiO2 11/22/21 07:46 91 167/74 11/22/21 07:00 98.5 18 96 Room Air 98.5 11/21/21 15:15 2.0 ROS: No Nausea, No Chest Pain, No Abdominal Pain, No Increase Cough General: Alert, No acute distress Lungs: Clear Cardiovascular: S1, S2 Abdomen: Soft Neuro Exam: Alert, Oriented Extremities: No Edema Skin: Warm Labs Laboratory Tests Test 11/20/21 15:10 11/21/21 03:25 11/22/21 04:55 Heparin Anti-Xa Act, Unfractionated 0.22 IU/mL (0.30-0.70) White Blood Count 5.4 x10^3/uL (4.0-11.0) 5.4 x10^3/uL (4.0-11.0) Red Blood Count 3.44 x10^6/uL (4.30-5.70) 3.53 x10^6/uL (4.30-5.70) Hemoglobin 9.2 g/dL (13.0-17.5) 9.2 g/dL (13.0-17.5) Hematocrit 27.7 % (39.0-53.0) 28.4 % (39.0-53.0) Mean Corpuscular Volume 80 fL (79-100) 80 fL (79-100) Mean Corpuscular Hemoglobin 27 pg (25-35) 26 pg (25-35) Mean Corpuscular Hemoglobin Concent 33 g/dL (31-37) 33 g/dL (31-37) Red Cell Distribution Width 18.6 % (11.5-14.5) 18.9 % (11.5-14.5) Platelet Count 240 x10^3/uL (140-400) 237 x10^3/uL (140-400) Neutrophils (%) (Auto) 62 % (31-73) 71 % (31-73) Lymphocytes (%) (Auto) 23 % (24-48) 14 % (24-48) Monocytes (%) (Auto) 11 % (0-9) 13 % (0-9) Eosinophils (%) (Auto) 3 % (0-3) 2 % (0-3) Basophils (%) (Auto) 1 % (0-3) 0 % (0-3) Neutrophils # (Auto) 3.3 x10^3/uL (1.8-7.7) 3.8 x10^3/uL (1.8-7.7) Lymphocytes # (Auto) 1.3 x10^3/uL (1.0-4.8) 0.8 x10^3/uL (1.0-4.8) Monocytes # (Auto) 0.6 x10^3/uL (0.0-1.1) 0.7 x10^3/uL (0.0-1.1) Eosinophils # (Auto) 0.2 x10^3/uL (0.0-0.7) 0.1 x10^3/uL (0.0-0.7) Basophils # (Auto) 0.0 x10^3/uL (0.0-0.2) 0.0 x10^3/uL (0.0-0.2) Sodium Level 134 mmol/L (136-145) 138 mmol/L (136-145) Potassium Level 4.4 mmol/L (3.5-5.1) 4.1 mmol/L (3.5-5.1) Chloride Level 97 mmol/L (98-107) 101 mmol/L (98-107) Carbon Dioxide Level 27 mmol/L (21-32) 28 mmol/L (21-32) Anion Gap 10 (6-14) 9 (6-14) Blood Urea Nitrogen 37 mg/dL (8-26) 20 mg/dL (8-26) Creatinine 8.1 mg/dL (0.7-1.3) 5.8 mg/dL (0.7-1.3) Estimated GFR (Cockcroft-Gault) 8.1 11.9 Glucose Level 78 mg/dL (70-99) 60 mg/dL (70-99) Calcium Level 8.3 mg/dL (8.5-10.1) 8.4 mg/dL (8.5-10.1) Phosphorus Level 4.7 mg/dL (2.6-4.7) 4.0 mg/dL (2.6-4.7) Magnesium Level 2.5 mg/dL (1.8-2.4) 2.3 mg/dL (1.8-2.4) Albumin 2.9 g/dL (3.4-5.0) 2.8 g/dL (3.4-5.0) Laboratory Tests Test 11/22/21 04:55 White Blood Count 5.4 x10^3/uL (4.0-11.0) Red Blood Count 3.53 x10^6/uL (4.30-5.70) Hemoglobin 9.2 g/dL (13.0-17.5) Hematocrit 28.4 % (39.0-53.0) Mean Corpuscular Volume 80 fL (79-100) Mean Corpuscular Hemoglobin 26 pg (25-35) Mean Corpuscular Hemoglobin Concent 33 g/dL (31-37) Red Cell Distribution Width 18.9 % (11.5-14.5) Platelet Count 237 x10^3/uL (140-400) Neutrophils (%) (Auto) 71 % (31-73) Lymphocytes (%) (Auto) 14 % (24-48) Monocytes (%) (Auto) 13 % (0-9) Eosinophils (%) (Auto) 2 % (0-3) Basophils (%) (Auto) 0 % (0-3) Neutrophils # (Auto) 3.8 x10^3/uL (1.8-7.7) Lymphocytes # (Auto) 0.8 x10^3/uL (1.0-4.8) Monocytes # (Auto) 0.7 x10^3/uL (0.0-1.1) Eosinophils # (Auto) 0.1 x10^3/uL (0.0-0.7) Basophils # (Auto) 0.0 x10^3/uL (0.0-0.2) Sodium Level 138 mmol/L (136-145) Potassium Level 4.1 mmol/L (3.5-5.1) Chloride Level 101 mmol/L (98-107) Carbon Dioxide Level 28 mmol/L (21-32) Anion Gap 9 (6-14) Blood Urea Nitrogen 20 mg/dL (8-26) Creatinine 5.8 mg/dL (0.7-1.3) Estimated GFR (Cockcroft-Gault) 11.9 Glucose Level 60 mg/dL (70-99) Calcium Level 8.4 mg/dL (8.5-10.1) Phosphorus Level 4.0 mg/dL (2.6-4.7) Magnesium Level 2.3 mg/dL (1.8-2.4) Albumin 2.8 g/dL (3.4-5.0) Medications Active Scripts Medications Dose Route/Sig Max Daily Dose Days Date Category Acetaminophen 500 Mg Tablet 2 Tab PO PRN Q4-6HRS PRN 15 11/18/21 Reported Senna Laxative (Sennosides) 8.6 Mg Tablet 2 Tab PO PRN BID PRN 30 11/18/21 Reported Atorvastatin Calcium 40 Mg Tablet 1 Tab PO QHS 11/18/21 Reported Diclofenac Sodium 150 Ml Drops 1 Marilynn TP QID 30 11/18/21 Reported Lisinopril 20 Mg Tablet 20 Mg PO DAILY 11/18/21 Reported Ferrous Sulfate 220 Mg/5 Ml Elixir 325 Mg PO DAILY 11/18/21 Reported Toprol XL (Metoprolol Succinate) 50 Mg Tab.er.24h 50 Mg PO DAILY 11/18/21 Reported Furosemide 20 Mg Tablet 1 Tab PO DAILY 11/18/21 Reported Children's Aspirin (Aspirin) 81 Mg Tab.chew 1 Tab PO DAILY 30 11/18/21 Reported Nifedipine Er (Nifedipine) 60 Mg Tablet.er 1 Tab PO DAILY 11/18/21 Reported Impression . IMPRESSION: 1. Acute hypoxemic respiratory failure secondary to acute pulmonary edema. 2. Acute pulmonary edema secondary to malignant hypertension. 3. Coronary artery disease, status post coronary artery bypass grafting. 4. Uncontrolled hypertension related to cocaine use. 5. Non-ST segment elevation myocardial infarction. 6. Status post right nephrectomy approximately 2 weeks ago due to what the patient thinks his cancer. 7. End-stage renal disease. 8. Tobacco use/chronic obstructive pulmonary disease. 9. Secondary pulmonary hypertension 10. Acute pulmonary edema secondary to diastolic dysfunction Plan . Status post cardiac catheterization. Report reviewed. Clinically stable Continue as needed BiPAP Echocardiogram obtained pulmonary artery pressure of 46 ejection fraction normal Blood pressure is better controlled Patient instructed on the importance of discontinue tobacco and cocaine use White count has come down Discharge planning per PCP EDWIN RHODES MD Nov 22, 2021 09:54
[2021-11-22 11:00] VITALS: BP 153/73
--- NOTE | 2021-11-22 11:15 | PDOC ---
DATE OF SERVICE DATE: 11/22/21 TIME: 11:15 SUBJECTIVE ROS Stable, States he is feeling well wants to go home Waiting for cardiology OBJECTIVE Vital Signs Vital Signs Date Time Temp Pulse Resp B/P (MAP) Pulse Ox O2 Delivery O2 Flow Rate FiO2 11/22/21 08:00 Room Air 5.0 11/22/21 07:46 91 167/74 11/22/21 07:00 98.5 18 96 98.5 I & 0 Intake and Output 11/22/21 07:00 Intake Total 440 ml Balance 440 ml Intake Oral 440 ml # Voids 1 PHYSICAL EXAM Physical Exam General: No acute distress, sitting in bed, On o2 by NC HEENT: Atraumatic, Mucous membr. moist/pink Neck Supple Lungs diminished bases, Non labored Heart: Regular rate Normal S1, Normal S2, 2/6 systolic murmur Abdomen: Soft, No tenderness. Obese Extremities: No cyanosis, No edema Skin: No breakdown, No Rash Neuro: Grossly Normal Psych/Mental Status: Cooperative No Petit, o CVA or SP tenderness DIAGNOSIS/ASSESSMENT Assessment & Plan ESRD MWF at [facility] ,No indication for dialysis toay. If dced will resume Hd as OP. Defer to Primary Acute on chronic CHF with possible diastolic dysfunction: possibly induced by uncontrolled HTN with associated cocaine. Echocardiogram shows an ejection fraction of 50 to 55%. NSTEMI:History of bypass surgery. S/P [facility] 11/21/2021. Report Pending Acute Resp Failure 2/2 AC on Chr CHF POA - Resolved Abnormal CT Chest- . Pulmonary edema and small pleural effusions. There are scattered centrilobular groundglass nodules and nodular opacities most likely reflective of pulmonary edema although a superimposed disseminated infection is also a possibility. Follow-up CT chest imaging in 3 months is advised to document that this resolves to exclude an underlying neoplastic nodule. 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 DM2 Cocaine use: used night prior to admission Tobacco abuse COMMENT/RELEVANT DATA Meds Current Medications Medications (Trade) Dose Ordered Sig/Yossi Start Time Stop Time Status Last Admin Dose Admin Acetaminophen (Tylenol) 650 mg 1X ONCE 11/21/21 13:45 11/21/21 13:46 DC 11/21/21 13:47 650 MG Albumin Human 200 ml @ 200 mls/hr 1X PRN PRN 11/18/21 16:15 11/18/21 22:14 DC Amlodipine Besylate (Norvasc) 10 mg BID 11/18/21 21:00 11/22/21 07:45 10 MG Aspirin (Ecotrin) 81 mg [id number] 11/18/21 10:00 11/22/21 07:43 81 MG Epoetin Riki (PROCRIT for DIALYSIS PTS) 10,000 unit 3X/WEEK ONCE 11/21/21 09:00 11/21/21 09:01 DC 11/21/21 13:46 10,000 UNIT Fentanyl Citrate (Fentanyl 2ml Vial) 100 mcg 1X ONCE 11/21/21 15:15 11/21/21 15:16 DC 11/21/21 15:15 50 MCG Furosemide (Lasix) 40 mg 1X ONCE 11/18/21 02:30 11/18/21 02:31 DC 11/18/21 03:26 40 MG Heparin Sodium (Porcine) (Heparin Sodium) 2,250 unit PRN Q6HRS PRN 11/18/21 14:00 11/20/21 14:40 DC 11/18/21 21:47 2,250 UNIT Heparin Sodium/ Dextrose 250 ml @ 10 mls/hr CONT PRN 11/18/21 14:00 11/20/21 14:40 DC 11/20/21 07:31 10 MLS/HR Heparin Sodium/ Sodium Chloride (HEPARIN for ARTERIAL LINE FLUSH) 1,000 unit 1X ONCE 11/21/21 15:15 11/21/21 15:16 DC 11/21/21 15:15 1,000 UNIT Hydralazine HCl (Apresoline Inj) 10 mg PRN Q4HRS PRN 11/18/21 13:15 11/21/21 16:05 10 MG Hydralazine HCl (Apresoline) 50 mg TID 11/18/21 10:00 11/22/21 07:45 50 MG Info (CONTRAST GIVEN -- Rx MONITORING) 1 each PRN DAILY PRN 11/18/21 03:45 11/20/21 03:44 DC Info (PHARMACY MONITORING -- do not chart) 1 each PRN DAILY PRN 11/21/21 10:15 Iodixanol (Visipaque 320) 100 ml STK-MED ONCE 11/21/21 15:20 11/21/21 15:21 DC Iohexol (Omnipaque 350 Mg/ml) 100 ml 1X ONCE 11/18/21 04:00 11/18/21 04:01 DC 11/18/21 03:54 90 ML Isosorbide Mononitrate (Imdur) 30 mg DAILY 11/18/21 10:00 11/22/21 07:44 30 MG Lidocaine HCl (Lidocaine 1% 20ml Vial) 20 ml 1X ONCE 11/21/21 15:15 11/21/21 15:16 DC 11/21/21 15:15 10 ML Lisinopril (Prinivil) 20 mg DAILY 11/18/21 10:00 11/22/21 07:46 20 MG Magnesium Hydroxide (Milk Of Magnesia) 2,400 mg 1X ONCE 11/20/21 11:45 11/20/21 11:47 DC 11/20/21 11:57 2,400 MG Magnesium Sulfate 50 ml @ 25 mls/hr PRN DAILY PRN 11/20/21 08:15 Midazolam HCl (Versed) 5 mg 1X ONCE 11/21/21 15:15 11/21/21 15:16 DC 11/21/21 15:15 2 MG Nitroglycerin/ Dextrose 250 ml @ 1.5 mls/hr CONT PRN 11/18/21 06:15 11/18/21 06:14 42 MLS/HR Ondansetron HCl (Zofran) 4 mg PRN Q8HRS PRN 11/19/21 10:30 Prochlorperazine Edisylate (Compazine) 10 mg PRN Q6HRS PRN 11/19/21 10:45 Sodium Chloride 1,000 ml @ 400 mls/hr Q2H30M PRN 11/21/21 10:15 11/21/21 22:14 DC Sodium Chloride (Normal Saline Flush) 10 ml 1X PRN PRN 11/18/21 16:15 11/19/21 16:14 DC Lab Laboratory Tests Test 11/22/21 04:55 White Blood Count 5.4 x10^3/uL (4.0-11.0) Red Blood Count 3.53 x10^6/uL (4.30-5.70) Hemoglobin 9.2 g/dL (13.0-17.5) Hematocrit 28.4 % (39.0-53.0) Mean Corpuscular Volume 80 fL (79-100) Mean Corpuscular Hemoglobin 26 pg (25-35) Mean Corpuscular Hemoglobin Concent 33 g/dL (31-37) Red Cell Distribution Width 18.9 % (11.5-14.5) Platelet Count 237 x10^3/uL (140-400) Neutrophils (%) (Auto) 71 % (31-73) Lymphocytes (%) (Auto) 14 % (24-48) Monocytes (%) (Auto) 13 % (0-9) Eosinophils (%) (Auto) 2 % (0-3) Basophils (%) (Auto) 0 % (0-3) Neutrophils # (Auto) 3.8 x10^3/uL (1.8-7.7) Lymphocytes # (Auto) 0.8 x10^3/uL (1.0-4.8) Monocytes # (Auto) 0.7 x10^3/uL (0.0-1.1) Eosinophils # (Auto) 0.1 x10^3/uL (0.0-0.7) Basophils # (Auto) 0.0 x10^3/uL (0.0-0.2) Sodium Level 138 mmol/L (136-145) Potassium Level 4.1 mmol/L (3.5-5.1) Chloride Level 101 mmol/L (98-107) Carbon Dioxide Level 28 mmol/L (21-32) Anion Gap 9 (6-14) Blood Urea Nitrogen 20 mg/dL (8-26) Creatinine 5.8 mg/dL (0.7-1.3) Estimated GFR (Cockcroft-Gault) 11.9 Glucose Level 60 mg/dL (70-99) Calcium Level 8.4 mg/dL (8.5-10.1) Phosphorus Level 4.0 mg/dL (2.6-4.7) Magnesium Level 2.3 mg/dL (1.8-2.4) Albumin 2.8 g/dL (3.4-5.0) Results All relevant outside records, renal labs, imaging studies, telemetry/EKG's were reviewed. Justicifation of Admission Dx: Justifications for Admission: Justification of Admission Dx: N/A NIRAJ SEGOVIA MD Nov 22, 2021 11:15
[2021-11-22 15:00] VITALS: BP 153/64
--- NOTE | 2021-11-22 15:57 | PDOC ---
NAT MENDOZA C[employer]IER ASSOCIATE 11/22/21 1557: CARDIO Progress Notes Date and Time Date of Service 11/22/21 Time of Evaluation 1150 Subjective Subjective: No Chest Pain, No shortness of breath, No Palpitations Vitals Vitals Vital Signs Date Time Temp Pulse Resp B/P (MAP) Pulse Ox O2 Delivery O2 Flow Rate FiO2 11/22/21 15:00 97.8 78 18 153/64 (93) 97 Room Air 97.8 11/22/21 08:00 5.0 Weight Weight [ ] Input and Output Intake and Output Intake and Output 11/22/21 07:00 Intake Total 440 ml Balance 440 ml Intake Oral 440 ml # Voids 1 Laboratory Labs Laboratory Tests Test 11/22/21 04:55 White Blood Count 5.4 x10^3/uL (4.0-11.0) Red Blood Count 3.53 x10^6/uL (4.30-5.70) Hemoglobin 9.2 g/dL (13.0-17.5) Hematocrit 28.4 % (39.0-53.0) Mean Corpuscular Volume 80 fL (79-100) Mean Corpuscular Hemoglobin 26 pg (25-35) Mean Corpuscular Hemoglobin Concent 33 g/dL (31-37) Red Cell Distribution Width 18.9 % (11.5-14.5) Platelet Count 237 x10^3/uL (140-400) Neutrophils (%) (Auto) 71 % (31-73) Lymphocytes (%) (Auto) 14 % (24-48) Monocytes (%) (Auto) 13 % (0-9) Eosinophils (%) (Auto) 2 % (0-3) Basophils (%) (Auto) 0 % (0-3) Neutrophils # (Auto) 3.8 x10^3/uL (1.8-7.7) Lymphocytes # (Auto) 0.8 x10^3/uL (1.0-4.8) Monocytes # (Auto) 0.7 x10^3/uL (0.0-1.1) Eosinophils # (Auto) 0.1 x10^3/uL (0.0-0.7) Basophils # (Auto) 0.0 x10^3/uL (0.0-0.2) Sodium Level 138 mmol/L (136-145) Potassium Level 4.1 mmol/L (3.5-5.1) Chloride Level 101 mmol/L (98-107) Carbon Dioxide Level 28 mmol/L (21-32) Anion Gap 9 (6-14) Blood Urea Nitrogen 20 mg/dL (8-26) Creatinine 5.8 mg/dL (0.7-1.3) Estimated GFR (Cockcroft-Gault) 11.9 Glucose Level 60 mg/dL (70-99) Calcium Level 8.4 mg/dL (8.5-10.1) Phosphorus Level 4.0 mg/dL (2.6-4.7) Magnesium Level 2.3 mg/dL (1.8-2.4) Albumin 2.8 g/dL (3.4-5.0) Microbiology Micro Microbiology 11/18/21 Blood Culture - Preliminary, Resulted NO GROWTH AFTER 4 DAYS Physical Exam HEENT: Neck Supple W Full Motion Chest: Symmetric LUNGS: Clear to Auscultation Abdomen: Soft N/T, Other (right groin arteriotomy site soft, clean, and dry. No hematoma. Neurovascular status intact ) Extremities: No Edema Neurology: alert, oriented, follow commands Assessment Assessment 1. Acute on chronic diastolic CHF; Echocardiogram shows an ejection fraction of 50 to 55%. appears compensated 2. Malignant HTN; improved 3. NSTEMI: type II, demand with above culprits[place] [address]. 4. CAD s/p CABG; [facility] shows severe campo vessel coronary artery disease s/p coronary artery bypass surgery with patent LUIS to LAD and without any lesions needing intervention. 5. S/P Right nephrectomy: about 2 weeks ago due to CA 6. ESRD on HD. 7. DM2 8. Cocaine use: used it the day prior to admission. 9. Tobacco abuse Recommendations Secondary prevention Fluid offloading via HD Discussed/encouraged cessation from tobacco and recreational drug use Supportive care Follow up in our office Justicifation of Admission Dx: Justifications for Admission: Justification of Admission Dx: N/A RADHA HULL MD 11/22/211808: CARDIO Progress Notes Assessment Assessment Patient seen and examined. Agree with A[employer] SPECIALIST's assessment plan as stated above. NAT MENDOZA APRN Nov 22, 2021 15:57 RADHA HULL MD Nov 22, 2021 18:09
== END 2021-11-22 16:15 | disposition home or self-care (01) | DRG 280 ==
LOC: ER 00:52 → 1 WEST ICU 01:54 → 6 SOUTH 11-20 07:45
PROVIDERS: ADMIT Internal Medicine; ATTEND Internal Medicine
PROC: 5A09357 Assistance with Respiratory Ventilation, Less than 24 Consecutive Hours, Continuous Positive Airway Pressure (ICD-10-PCS; principal; 2021-11-18)
PROC: 4A023N7 Measurement of Cardiac Sampling and Pressure, Left Heart, Percutaneous Approach (ICD-10-PCS; 2021-11-21)
PROC: B2111ZZ Fluoroscopy of Multiple Coronary Arteries using Low Osmolar Contrast (ICD-10-PCS; 2021-11-21)
PROC: B2181ZZ Fluoroscopy of Left Internal Mammary Bypass Graft using Low Osmolar Contrast (ICD-10-PCS; 2021-11-21)
PROC: B2131ZZ Fluoroscopy of Multiple Coronary Artery Bypass Grafts using Low Osmolar Contrast (ICD-10-PCS; 2021-11-21)
PROC: B3101ZZ Fluoroscopy of Thoracic Aorta using Low Osmolar Contrast (ICD-10-PCS; 2021-11-21)
DX: I13.2 Hypertensive heart and chronic kidney disease with heart failure and with stage 5 chronic kidney disease, or end stage renal disease (principal); J96.01 Acute respiratory failure with hypoxia; I21.A1 Myocardial infarction type 2; N18.6 End stage renal disease; I50.33 Acute on chronic diastolic (congestive) heart failure; I16.1 Hypertensive emergency; D64.9 Anemia, unspecified; D72.829 Elevated white blood cell count, unspecified; E11.22 Type 2 diabetes mellitus with diabetic chronic kidney disease; E78.5 Hyperlipidemia, unspecified; F14.10 Cocaine abuse, uncomplicated; F17.210 Nicotine dependence, cigarettes, uncomplicated; I25.10 Atherosclerotic heart disease of native coronary artery without angina pectoris; I27.29 Other secondary pulmonary hypertension; I77.810 Thoracic aortic ectasia; J44.9 Chronic obstructive pulmonary disease, unspecified; M51.9 Unspecified thoracic, thoracolumbar and lumbosacral intervertebral disc disorder; N62 Hypertrophy of breast; Z80.9 Family history of malignant neoplasm, unspecified; Z82.49 Family history of ischemic heart disease and other diseases of the circulatory system; Z83.3 Family history of diabetes mellitus; Z85.528 Personal history of other malignant neoplasm of kidney; Z90.5 Acquired absence of kidney; Z95.1 Presence of aortocoronary bypass graft; Z99.2 Dependence on renal dialysis; K21.9 Gastro-esophageal reflux disease without esophagitis
CPT/HCPCS: 93455; 93567; 96365; 96375; 99291; 99292; G0269; 36415; 36600; 71045; 71275; 74174; 80053; 80061; 80069; 80307; 82805; 83605; 83735; 83880; 84443; 84484; 85025; 85520; 85610; 85730; 87040; 93005; 93306; 94660; 99152; 99153; C1894; G0480; J0360; J1644; J1940; J2250; J3010; J3490; Q9967; C8929; G0378; Q4081